=== PATIENT | female | born 2000 | race Caucasian/White ===

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

== ENCOUNTER → 2022-04-17 | Outpatient (CLI) | payer OTHER, SELFPAY ==
[2022-04-17 15:46] LABS: Chlamydia Trachomatis by PCR Negative (Negative); Neisserai gonorrhoeae by PCR Negative (Negative); Probe Check PASS; Sample Adequacy Control PASS; Specimen Processing Control PASS
== END | disposition home or self-care (01) ==
LOC: LABSPEC 13:57
PROVIDERS: PCP Nurse Practitioner Pediatrics; Visit Provider Nurse Practitioner Women's Health
DX: N92.1 Excessive and frequent menstruation with irregular cycle (principal)
CPT/HCPCS: 87491; 87591

== ENCOUNTER → 2022-06-06 | Outpatient (CLI) | payer OTHER, SELFPAY ==
[2022-06-06 08:51] LABS: AST(SGOT) 20 U/L (15-37); Alanine Aminotransfer ALT/SGPT 37 U/L (13-56); Albumin, Serum 3.7 g/dL (3.2-5.0); Alkaline Phosphatase 61 U/L (45-117); Cholesterol 170 mg/dL (200); Globulin 3.7 g/dL (2.2-4.2); High Density Lipoprotein 46 mg/dL; Protein, Total 7.4 g/dL (6.4-8.2); Triglycerides 112 mg/dL; Very Low Density Lipoprotein 22 mg/dL (5-40)
== END | disposition home or self-care (01) ==
LOC: LAB 07:54
PROVIDERS: Referring Provider Internal Medicine Cardiovascular Disease; Visit Provider Internal Medicine Cardiovascular Disease
DX: E78.41 Elevated Lipoprotein(a) (principal)
CPT/HCPCS: 36415; 80061; 80076

== ENCOUNTER → 2022-06-12 | Outpatient (CLI) | payer OTHER, SELFPAY ==
[2022-06-13 01:01] LABS: Mucous, Urine 0 SEEN /hpf (<or=2+)
[2022-06-13 01:05] LABS: Color, Urine Amber (Yellow); Glucose, Dipstick Normal (Normal); Ketone-Dipstick Negative (Negative); Leukocyte Esterase-Dipstick 100 /ul (Negative); Nitrite-Dipstick Positive (Negative); Occult Blood-Urine 150 /ul (Negative); Protein-Dipstick 30 mg/dl (Negative); Urine Clarity Cloudy (Clear); Urine Urobilinogen 4 mg/dl (Normal)
[2022-06-13 01:25] LABS: Urine Bilirubin Dipstick 3 mg/dL (Negative)
[2022-06-13 01:27] LABS: Amorphous Sediment 1+; Bacteria 4+ /hpf (None Seen); Red Blood Cells-Urine 10-25 SEEN /hpf (0-5); Renal Epithelial Cells 5-10 SEEN /hpf (0-5); Squamous Epithelial Cells - UA 0-5 SEEN /hpf (5-10); Transitional Epithelial - Ur 0-5 SEEN /hpf (0-5)
[2022-06-13 01:28] LABS: White Blood Cells 25-50 SEEN /hpf (0-5)
== END | disposition home or self-care (01) ==
PROVIDERS: Referring Provider Physician Assistant; Visit Provider Physician Assistant
DX: R30.9 Painful micturition, unspecified (principal)
CPT/HCPCS: 81001; 87086; 87088; 87186

== ENCOUNTER → 2022-07-23 | Outpatient (CLI) | payer OTHER, SELFPAY ==
--- NOTE | 2022-07-23 12:42 | ECHOD_ITS ---
Reason For Study: DYSPNEA Left Ventricle Normal LV size. Left ventricular systolic function is normal. The estimated ejection fraction is 60 %. No regional wall motion abnormalities noted. Right Ventricle Normal RV size. Normal systolic function. Atria Normal left atrium. Normal right atrium. Mitral Valve Normal mitral valve. Tricuspid Valve Normal tricuspid valve. Mild tricuspid valve insufficiency. Pulmonary artery systolic pressure is 23 mmHg. Aortic Valve Normal aortic valve. Trisinus/trileaflet aortic valve. Pulmonic Valve Normal pulmonic valve. Great Vessels Normal aortic root. The pulmonary artery is normal size. Normal inferior vena cava. Pericardium/Pleural No pericardial effusion. MMode/2D Measurements & Calculations LVIDd: 4.5 cm IVSd: 0.78 cm Ao root diam: 2.4 cm LVIDs: 3.3 cm LVPWd: 0.70 cm RVDd: 2.5 cm FS: 28.5 % LAV(MOD-bp): 39.7 ml LVAd ap4: 29.0 cm2 SV(MOD-sp4): 51.0 ml LAV(MOD-bp) Indexed: 25.7 ml/m2 LVLd ap4: 8.1 cm LAV(MOD-sp2): 42.5 ml EDV(MOD-sp4): 85.6 ml LAV(MOD-sp4): 26.8 ml EDV(sp4-el): 88.2 ml LVAs ap4: 16.6 cm2 LVLs ap4: 6.4 cm ESV(MOD-sp4): 34.7 ml ESV(sp4-el): 36.5 ml EF(MOD-sp4): 59.5 % EF(sp4-el): 58.6 % SV(sp4-el): 51.7 ml LA dimension(2D): 2.8 cm LA A4 area: 15.2 cm2 RA A4 area: 11.4 cm2 Time Measurements MV dec time: 0.19 sec Doppler Measurements & Calculations MV E max alton: 89.3 cm/sec Lat Peak E' Alton: 26.7 cm/sec Med Peak E' Alton: 16.0 cm/sec MV A max alton: 47.3 cm/sec E/E' lat: 3.3 E/E' med: 5.6 MV E/A: 1.9 MV V2 max: 92.7 cm/sec Ao V2 max: 139.2 cm/sec MV max P.4 mmHg MV dec slope: 492.4 cm/sec2 Ao max P.8 mmHg MV V2 mean: 60.0 cm/sec Ao V2 mean: 106.4 cm/sec MV mean P.6 mmHg Ao mean P.0 mmHg MV V2 VTI: 29.6 cm Ao V2 VTI: 31.7 cm PA V2 max: 99.7 cm/sec TR max alton: 225.4 cm/sec PA V2 mean: 72.3 cm/sec TR max P.3 mmHg ECHO/Echo Complete Interpretation Summary Normal LV size. Left ventricular systolic function is normal. The estimated ejection fraction is 60 %. Pulmonary artery systolic pressure is 23 mmHg. Structurally normal valves. Ordering Physician: Murali Bartlett Referring Physician: NO PCP GIVEN Performed By: Leticia Engel RCS
== END | disposition home or self-care (01) ==
LOC: CVS 12:41
PROVIDERS: Visit Provider Internal Medicine Cardiovascular Disease
DX: R07.9 Chest pain, unspecified (principal)
CPT/HCPCS: 93306

== ENCOUNTER → 2024-04-16 | Outpatient (CLI) | payer OTHER, SELFPAY ==
[2024-04-16 11:30] LABS: AST(SGOT) 12 U/L (15-37); Alanine Aminotransfer ALT/SGPT 17 U/L (13-56); Albumin, Serum 4.3 g/dL (3.2-5.0); Alkaline Phosphatase 77 U/L (45-117); Bilirubin, Direct 0.16 mg/dL (0.00-0.30); Cholesterol 157 mg/dL (200); Globulin 3.2 g/dL (2.2-4.2); High Density Lipoprotein 68 mg/dL; Protein, Total 7.5 g/dL (6.4-8.2); Triglycerides 34 mg/dL; Very Low Density Lipoprotein 7 mg/dL (5-40)
== END | disposition home or self-care (01) ==
LOC: LAB 09:46
PROVIDERS: Referring Provider Physician Assistant Medical; Visit Provider Physician Assistant Medical
DX: E78.41 Elevated Lipoprotein(a) (principal)
CPT/HCPCS: 36415; 80061; 80076

== ENCOUNTER → 2024-06-24 | Outpatient (CLI) | payer OTHER, SELFPAY ==
[2024-06-24 10:03] LABS: Hematocrit 43.6 % (37-47); Hemoglobin 14.3 g/dL (12.0-15.0); Mean Corp Hgb Conc 32.8 g/dL (32-36); Mean Corpuscular Hgb 29.1 pg (27.0-32.0); Mean Corpuscular Volume 88.8 fL (81-99); Mean Platelet Vol. 9.3 fl (6.2-12.0); Platelet Count 293 K/mm3 (150-450); RBC Distribution Width CV 11.8 % (11.6-14.6); Red Blood Count 4.91 M/mm3 (4.2-5.4); White Blood Count 5.4 K/mm3 (4.4-11.0)
[2024-06-24 10:39] LABS: Vitamin B12 1959 pg/mL (211-911); Vitamin D,25 Hydroxy 18.6 ng/mL
[2024-06-24 10:41] LABS: Iron 123 ug/dL (50-170); Iron Binding Capacity,Total 442 ug/dL (250-450); PERCENT IRON SATURATION 27.8 % (15.0-55.0)
== END | disposition home or self-care (01) ==
PROVIDERS: Referring Provider Physician Assistant Surgical; Visit Provider Physician Assistant Surgical
DX: R53.83 Other fatigue (principal)
CPT/HCPCS: 36415; 82306; 82607; 83540; 83550; 85027

== ENCOUNTER → 2025-01-31 | Outpatient (CLI) | payer OTHER, SELFPAY ==
--- NOTE | 2025-01-31 09:33 | MRI_ITS ---
PROCEDURE: BRAIN W/WO CONTRAST 01/31/2025 REASON FOR EXAM: ALTERED AWARENESS, TANSIENT TECHNIQUE: BRAIN W/WO CONTRAST Multiplanar and multisequence images were obtained. CONTRAST: Clariscan VOLUME: 12 mL intravenous. COMPARISON: None provided. FINDINGS: Brain: Normal signal intensities. Diffusion: No area of restricted diffusion is seen. Ventricles: Normal. Major Intracranial Vessels: Unremarkable Sinuses: Clear. Mastoids: Clear. Other: Postcontrast images demonstrate no area of abnormal enhancement. MRI/Brain W/WO Contrast IMPRESSION: No significant abnormality is identified. Reading Location: [place] [id number]
--- OUTSIDE RECORDS SUMMARY | 2025-01-31 21:20 | XMS RPT_ITS | CCD ---
Author Organization [facility] Care Team Providers Care Drama Therapist Name Role Phone Terrence DAMON Rosa N Unavailable Cogar NELSON Rosa N Unavailable Mclennan CARGO SUPERVISOR, CARGO SUPERVISOR-C Alia Primary Care Provider Mclennan CARGO SUPERVISOR, CARGO SUPERVISOR-C Alia Referring Provider [phone] Yuriy CARGO SUPERVISOR, CARGO SUPERVISOR-C Laura Attending Provider Mclennan CARGO SUPERVISOR, CARGO SUPERVISOR-C Alia Primary Care Provider Mclennan CARGO SUPERVISOR, CARGO SUPERVISOR-C Alia Referring Provider Yuriy CARGO SUPERVISOR, CARGO SUPERVISOR-C Laura Attending Provider Dr. Murali Bartlett Attending Provider Care Physician, No Primary Primary Care Provider Unavailable Care Physician, No Primary Referring Provider Un available CHARBEL Groves Attending Provider KITTY SIDDIQUI DO Primary Care Physician KITTY SIDDIQUI DO Primary Care Unavailable KITTY SIDDIQUI DO Attending Unavailable VIIRDIANA FAUSTIN MD Attending Unavailable KITTY SIDDIQUI DO Primary Care Unavailable VIRIDIANA FAUSTIN MD Attending Unavailable KITTY SIDDIQUI DO Primary Care Unavailable Maude Posey Attending Unavail able Care Physician, No Primary Primary Care Unava ilable Care Physician, No Primary Referring Unava ilable Kitty Siddiqui Primary Care Unavailable Viridiana Faustin Attending Unavailable Viridiana Faustin Referring Unavailable Panda Salomon Attending Unavailable Care Physician, No Primary Primary Care Unava ilable Care Physician, No Primary Referring Unava ilable Care Physician, No Primary Primary Care Unava ilable Eric Groves Attending Unavailable Care Physician, No Primary Referring Unava Maude Cummings Attending Unavail Maude Gastelum Referring Unavail able Care Physician, No Primary Primary Care Unava Panda Zamorano Attending Unavailable Panda Salomon Referring Unavailable Care Physician, No Primary Primary Care Unava ilwilian Medications Current Medications Medication Drug Class(es) Dates Sig (Normalized) Sig (Original) ashwagandha 450 mg oral capsule (2 sources) Start: 08-02-2024 take 1 capsule by mouth once ashwagandha 450 mg oral capsule 450 mg Dose = 1 cap(s), Oral, Once, 0 Refill(s) Start Date: 08/02/24 Status: Ordered Repeat number: 1 biotin 0.3 mg oral tablet (2 sources) Start: 08-02-2024 biotin 300 mcg oral tablet Dose : 600 mcg = 2 tab(s), Oral, qDay, # 60 tab(s), 0 Refill(s) Start Date: 08/02/24 Status: Ordered Quantity: 60.0 Unit: tab(s) Repeat number: 1 Levonorgestrel-Eth inyl Estrad (20 sources) Progestin, Estrogen, Progestin-containin g Intrauterine Device Start: 04-17-2022 Levonorgestrel-Et hinyl Estrad (Altavera (28)) 0.15-0.03 mg tablet Active 1 TABLET PO DAILY April 16, 2022 11:00pm Start: 11-07-2021 End: 04-17-2022 take 1 tablet by mouth once daily Levonorgestrel-Ethinyl Estrad (Aviane) 0.1-20 mg-mcg tablet Discontinued 1 TABLET PO daily November 07, 2021 1:59pm April 17, 2022 12:10pm Start: 10-24-2021 End: 11-07-2021 take 1 tablet by mouth once daily Levonorgestrel-Ethinyl Estrad (Aviane) 0.1-20 mg-mcg tablet Discontinued 1 TABLET PO daily October 24, 2021 1:18pm November 07, 2021 1:59pm Start: 10-24-2021 End: 11-07-2021 take 1 tablet by mouth once daily Levonorgestrel-Ethinyl Estrad (Aviane) 0.1-20 mg-mcg tablet Discontinued 1 TABLET PO daily October 24, 2021 2:18pm November 07, 2021 2:59pm Start: 08-28-2020 End: 10-24-2021 take 1 tablet by mouth once daily Levonorgestrel-Ethinyl Estrad (Aviane) 0.1-20 mg-mcg tablet Discontinued 1 TABLET PO daily August 28, 2020 3:36pm October 24, 2021 1:18pm Start: 08-28-2020 End: 10-24-2021 take 1 tablet by mouth once daily Levonorgestrel-Ethinyl Estrad (Aviane) 0.1-20 mg-mcg tablet Discontinued 1 TABLET PO daily August 28, 2020 4:36pm October 24, 2021 2:18pm Start: 05-29-2020 End: 08-28-2020 take 1 tablet by mouth once daily Levonorgestrel-Ethinyl Estrad (Aviane) 0.1-20 mg-mcg tablet Discontinued 1 TABLET PO daily May 29, 2020 3:47pm August 28, 2020 4:37pm Start: 05-29-2020 End: 08-28-2020 take 1 tablet by mouth once daily Levonorgestrel-Ethinyl Estrad (Aviane) 0.1-20 mg-mcg tablet Discontinued 1 TABLET PO daily May 28, 2020 11:00pm August 28, 2020 3:37pm Vitamin B12 50 mcg oral tabl et (2 sources) Start: 08-02-2024 Vitamin B12 50 mcg oral tablet Dose : 100 mcg = 2 tab(s), Oral, Daily, 0 Refill(s) Start Date: 08/02/24 Status: Ordered Repeat number: 1 Vitamin C 250 mg oral tablet (2 sources) Start: 08-02-2024 Vitamin C 250 mg oral tablet Dose : 250 mg = 1 tab(s), Oral, qDay, Take with food, # 30 tab(s), 0 Refill(s) Start Date: 08/02/24 Status: Ordered Quantity: 30.0 Unit: tab(s) Repeat number: 1 Vitamin D3 (2 sources) Start: 08-02-2024 Vitamin D3 Dos e : 10 mcg = 1 tab(s), Oral, Daily, 0 Refill(s) Start Date: 08/02/24 Status: Ordered Repeat number: 1 Completed/Discontinued Medications Medication Drug Class(es) Dates Sig (Normalized) Sig (Original) amoxicillin 875 mg / clavulanate 125 mg oral tablet (5 sources) Penicillin-class Antibacterial Start: 08-27-2019 End: 09-06-2019 take 1 tablet by mouth every twelve hours Amoxicillin-Pot Clavulanate (Augmentin) 875-125 mg tablet Discontinued 1 TABLET PO Q12H 20 August 27, 2019 12:00am September 06, 2019 12:08am nitrofurantoin, macrocrystals 25 mg / nitrofurantoin, monohydrate 75 mg oral capsule (8 sources) Nitrofuran Antibacterial Start: 06-12-2022 End: 06-17-2022 take 1 capsule by mouth every twelve hours at mealtime Nitrofurantoin Monohyd/M-Cryst (Macrobid) 100 mg capsule Discontinued 100 MG PO Q12H 10 June 12, 2022 12:00am June 17, 2022 12:04am must administer with a meal/food Start: 06-13-2020 End: 06-20-2020 take 1 capsule by mouth every twelve hours at mealtime Nitrofurantoin Monohyd/M-Cryst Discontinued 1 CAP PO Q12H 14 June 13, 2020 12:00am June 20, 2020 12:03am administer with a meal/food; swallow whole; do not open, crush, dissolve , or chew oseltamivir 75 mg oral capsule (5 sources) Neuraminidase Inhibitor Start: 09-03-2017 End: 09-08-2017 take 1 capsule by mouth twice daily Oseltamivir (Tamiflu) 75 mg capsule Discontinued 75 MG PO TWICE A DAY 10 September 03, 2017 12:00am September 08, 2017 12:06am phenazopyridine hydrochloride 100 mg oral tablet (5 sources) Start: 06-13-2020 End: 08-28-2020 take 1 tablet by mouth three times daily at mealtime Phenazopyridine (Pyridium) 100 mg tablet Discontinued 100 MG PO THREE TIMES A DAY 7 June 13, 2020 12:00am August 28, 2020 3:18pm administer with a full glass of water after each meal sulfamethoxazole 800 mg / trimethoprim 160 mg oral tablet (5 sources) Dihydrofolate Reductase Inhibitor Antibacterial, Sulfonamide Antimicrobial Start: 12-10-2017 End: 08-27-2019 take 1 tablet by mouth twice daily Sulfamethoxazole-Tr imethoprim Discontinued 1 TABLET PO TWICE A DAY December 09, 2017 11:00pm August 27, 2019 1:51pm Problems Active Problems Problem Classification Problem Date Documented Date Episodic/Chronic Cardiac dysrhythmias (6 sources) Tachycardia; Translations: [Tachycardia, unspecified] Episodic Conditions associated with dizziness or vertigo (1 source) Lightheadedness 10-28-2024 Episodic Disorders of lipid metabolism (7 sources) Hyperlipoproteinemia; 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 Immunizations and screening for infectious disease (3 sources) Contact with and (suspected) exposure to infections with a predominantly sexual mode of transmission; Translations: [Contact with or exposure to venereal diseases] Episodic Menstrual disorders (10 sources) Menometrorrhagia; Translations: [Excessive and frequent menstruation with irregular cycle] Chronic Nonspecific chest pain (6 sources) Chest pain; Translations: [Chest pain, unspecified] Episodic Other nervous system disorders (1 source) Impaired cognition 10-28-2024 Episodic Residual codes; unclassified (1 source) Transient alteration of awareness; Translations: [Transient alteration of awareness] Onset: 01-31-2025 Episodic Syncope (1 source) Near syncope 10-28-2024 Episodic Urinary tract infections (6 sources) Urinary tract infectious disease; Translations: [Urinary tract infection, site not specified] Episodic Past or Other Problems Problem Classification Problem Date Documented Da te Episodic/Chronic Malaise and fatigue (1 source) Other fatigue; Translations: [Other fatigue] Onset: 07-23-2024 Episodic Other ear and sense organ disorders (2 sources) Otalgia, unspecified ear; Translations: [Otalgia, unspecified ear] Onset: 04-08-2017 04-08-2017 Episodic Other upper respiratory infections (2 sources) Upper respiratory infection; Translations: [Acute upper respiratory infection, unspecified] Onset: 04-08-2017 04-08-2017 Episodic Results Test Name Value Interpretation Reference Range Facility Brain W/WO Contraston 2024 Brain W/WO Contrast [facility] [address] [place] [id number] Brain W/WO Contrast MR#: [id number] Acct: [id number] Name: PRISCILLA WALTERS Rep #: [id number] : 2000 F 24 From: [facility] PCP: Dr. Kitty Siddiqui, Status: REG CLI Study: Brain W/WO Contrast Date of Exam: 01/31/25 Exam# [id number] Ordering Dr: Viridiana Faustin MD PROCEDURE: BRAIN W/WO CONTRAST 01/31/2025 REASON FOR EXAM: ALTERED AWARENESS, TANSIENT TECHNIQUE: BRAIN W/WO CONTRAST Multiplanar and multisequence images were obtained. CONTRAST: Clariscan VOLUME: 12 mL intravenous. COMPARISON: None provided. FINDINGS: Brain: Normal signal intensities. Diffusion: No area of restricted diffusion is seen. Ventricles: Normal. Major Intracranial Vessels: Unremarkable Sinuses: Clear. Mastoids: Clear. Other: Postcontrast images demonstrate no area of abnormal enhancement. MRI/Brain W/WO Contrast IMPRESSION: No significant abnormality is identified. Reading Location: [place] [address] CC: Dr. Viridiana Faustin MD; Dr. Kitty Siddiqui DO Parts Counterperson: Signed Normal [facility] Methylmalonic Acid 161 nmol/L Normal 0-378 [facility] Comment on above: Result Comment: This test was developed and its performance characteristics determined by [facility]. It has not been cleared or approved by the Food and Drug Administration. Performed At: [address] [id number] Alirio Cain MD Ph:[phone] Performed By: #### G FR, CMP, ANEU, A1C, ADIFF, LIPID, TSH, CBC #### [facility] [address] [place], [place] [address] ERon 01-12-2025 Lyme Total Antibody JAD Negative Normal Negative [facility] Comment on above: Result Comment: Lyme antibodies not detected. Reflex testing is not indicated. No laboratory evidence of infection with B. burgdorferi (Lyme disease). Negative results may occur in patients recently infected (less than or equal to 14 days) with B. burgdorferi. If recent infection is suspected, repeat testing on a new sample collected in 7 to 14 days is recommended. Performed At: [facility] [id number] Krysten Arnold PhD Ph:[phone] Performed By: #### G FR, CMP, ANEU, A1C, ADIFF, LIPID, TSH, CBC #### [address] [address] .GFRon 01-11-2025 Estimated Glomerular Filtration Rate 74 ml/min/1.73sqm Normal [facility] Comment on above: Result Comment: Stages of Chronic Kidney Disease (CKD) Stage Description eGFR(ml/min/1.73 sq.m.) CKD 1 Normal kidney function or >=90 normal kindney function with possible kidney damage (ex. Proteinuria) CKD 2 Kidney damage with mild loss 60-89 of kidney function CKD 3a Mild to moderate loss of kidney 45-59 function CKD 3b Moderate to severe loss of 30-44 of kindey function CKD 4 Severe loss of kidney function 15-29 CKD 5 Kidney failure <15 Note: (go live 2024) the eGFR calculation was updated to the 2020 CKD-EPI creatinine equation without a race factor to calculate the eGFR results. Performed By: #### G FR, CMP, ANEU, A1C, ADIFF, LIPID, TSH, CBC #### [address] [address] B12on 01-11-2025 Vitamin B12 Lvl >2000 High 211-911 [facility] Comment on above: Performed By: #### G FR, CMP, ANEU, A1C, ADIFF, LIPID, TSH, CBC #### [address] [address] BMPon 01-11-2025 BUN/Creatinine Ratio 16 ratio Normal 7-27 [facility] Comment on above: Performed By: #### F T4, TSH, 802436, GFR, 745846, BMP #### [address] [address] #### B12 #### [facility] [address] [place] [address] Calcium [Mass/Vol] 9.4 mg/dL Normal 8.4-10.2 [facility] Comment on above: Performed By: #### F T4, TSH, 379367, GFR, 820711, BMP #### [place] [address] #### B12 #### [address] [address] Chloride [Moles/Vol] 104 mmol/L Normal 98-107 [facility] Comment on above: Performed By: #### F T4, TSH, 344543, GFR, 895620, BMP #### [place] [address] #### B12 #### [place] [address] CO2 [Moles/Vol] 29 mmol/L Normal 22-29 [facility] Comment on above: Performed By: #### F T4, TSH, 157124, GFR, [id number], BMP #### [place] [address] #### B12 #### [place] [address] Creatinine [Mass/Vol] 1.09 mg/dL High 0.51-0.95 [facility] Comment on above: Performed By: #### F T4, TSH, 739352, GFR, [id number], BMP #### [place] [address] #### B12 #### [place] [address] Electrolyte Balance 8.0 mEq/L Normal 4.0-15.0 [facility] Comment on above: Performed By: #### F T4, TSH, 054407, GFR, 016339, BMP #### [place] [address] #### B12 #### [place] [address] Glucose [Mass/Vol] 96 mg/dL Normal 70-105 [facility] Comment on above: Performed By: #### F T4, TSH, 209054, GFR, 599231, BMP #### [place] [address] #### B12 #### [address] [address] Potassium [Moles/Vol] 4.5 mmol/L Normal 3.5-5.1 [facility] Comment on above: Performed By: #### F T4, TSH, 174334, GFR, 649517, BMP #### [place] [address] #### B12 #### [address] [address] Sodium [Moles/Vol] 141 mmol/L Normal 136-145 [facility] Comment on above: Performed By: #### F T4, TSH, 828620, GFR, 915557, BMP #### [place] [address] #### B12 #### [address] [address] Urea nitrogen [Mass/Vol] 17 mg/dL Normal 7-18 [facility] Comment on above: Performed By: #### F T4, TSH, 691274, GFR, 929938, BMP #### [place] [address] #### B12 #### [address] [address] FT4on 01-11-2025 Free T4 [Mass/Vol] 0.67 ng/dL Low 0.76-1.46 [facility] Comment on above: Performed By: #### G FR, CMP, ANEU, A1C, ADIFF, LIPID, TSH, CBC #### [place] [address] LABORATORYOrdered By: SYSTEM SYSTEM on 01-11-2025 Calcium [Mass/Vol] 9.4 mg/dL Normal 8.4 - 10. 2 mg/dL AO ADM SS Chloride [Moles/Vol] 104 mmol/L Normal 98 - 10 7 mmol/L AO ADM SS CO2 [Moles/Vol] 29 mmol/L Normal 22 - 29 mmol/L AO ADM SS Cobalamin (Vitamin B12) [Mass/Vol] pg/mL High 211 - 911 pg/mL AH ADM SS Creatinine [Mass/Vol] 1.09 mg/dL High 0.51 - 0.95 mg/dL AO ADM SS Electrolyte Balance 8.0 mEq/L Normal 4.0 - 15 .0 mEq/L AO ADM SS Estimated Glomerular Filtration Rate 74 ml/min/1.73sqm Invalid Interpretation Code AO Chemistry S Comment on above: Interpretive Data: Stages of Chronic Kidney Disease (CKD) Stage Description eGFR(ml/min/1.73 sq.m.) CKD 1 Normal kidney function or >=90 normal kindney function with possible kidney damage (ex. Proteinuria) CKD 2 Kidney damage with mild loss 60-89 of kidney function CKD 3a Mild to moderate loss of kidney 45-59 function CKD 3b Moderate to severe loss of 30-44 of kindey function CKD 4 Severe loss of kidney function 15-29 CKD 5 Kidney failure <15 Note: (go live 2024) the eGFR calculation was updated to the 2020 CKD-EPI creatinine equation without a race factor to calculate the eGFR results. Free T4 [Mass/Vol] 0.67 ng/dL Low 0.76 - 1. 46 ng/dL AO ADM SS Glucose [Mass/Vol] 96 mg/dL Normal 70 - 105 mg/dL AO ADM SS Potassium [Moles/Vol] 4.5 mmol/L Normal 3.5 - 5.1 mmol/L AO ADM SS Sodium [Moles/Vol] 141 mmol/L Normal 136 - 145 mmol/L AO ADM SS TSH Qn 2.13 m[IU]/L Normal 0.36 - 3.74 mcIU/mL AO ADM SS Urea nitrogen [Mass/Vol] 17 mg/dL Normal 7 - 18 mg/dL AO ADM SS Urea nitrogen/Creatinine [Mass ratio] 16 ratio Normal 7 - 27 ratio AO ADM SS TSHon 01-11-2025 TSH Qn 2.13 m[IU]/L Normal 0.36-3.74 [facility] Comment on above: Performed By: #### F T4, TSH, 850065, GFR, 882143, BMP #### [address] [address] #### B12 #### [facility] [address] [place] [address] .Auto Diffon 08-03-2024 Basophil, Absolute 0.1 10 3/mcL Normal 0.0-0.2 [facility] Comment on above: Performed By: #### G FR, CMP, ANEU, A1C, ADIFF, LIPID, TSH, CBC #### [address] [address] Basophils/100 WBC (Bld) 2.0 % Normal 0.0-2.5 [facility] Comment on above: Performed By: #### G FR, CMP, ANEU, A1C, ADIFF, LIPID, TSH, CBC #### [address] [address] Eosinophil, Absolute 0.1 10 3/mcL Normal 0.0-0.7 [facility] Comment on above: Performed By: #### G FR, CMP, ANEU, A1C, ADIFF, LIPID, TSH, CBC #### [address] [address] Eosinophils/100 WBC (Bld) 2.2 % Normal 0.0-7.0 [facility] Comment on above: Performed By: #### G FR, CMP, ANEU, A1C, ADIFF, LIPID, TSH, CBC #### [address] [address] Lymphocyte, Absolute 2.3 10 3/mcL Normal 0.9-4.3 [facility] Comment on above: Performed By: #### G FR, CMP, ANEU, A1C, ADIFF, LIPID, TSH, CBC #### [address] [address] Lymphocytes/100 WBC (Bld) 34.8 % Normal 20.0-40.0 [facility] Comment on above: Performed By: #### G FR, CMP, ANEU, A1C, ADIFF, LIPID, TSH, CBC #### [address] [address] Monocyte, Absolute 0.4 10 3/mcL Normal 0.1-1.4 [facility] Comment on above: Performed By: #### G FR, CMP, ANEU, A1C, ADIFF, LIPID, TSH, CBC #### [address] [address] Monocytes/100 WBC (Bld) 6.2 % Normal 2.0-13.0 [facility] Comment on above: Performed By: #### G FR, CMP, ANEU, A1C, ADIFF, LIPID, TSH, CBC #### [address] [address] Neutrophils/100 WBC (Bld) 54.8 % Normal 50.0-75.0 [facility] Comment on above: Performed By: #### G FR, CMP, ANEU, A1C, ADIFF, LIPID, TSH, CBC #### [address] [address] .GFRon 08-03-2024 GFR 84 ml/min/1.73sqm [facility] Comment on above: Result Comment: GFR Population mean for , Non- Americans Ages 20-29 = 116 mL/min/1.73 sq.m. Ages 30-39 = 107 mL/min/1.73 sq.m. Ages 40-49 = 99 mL/min/1.73 sq.m. Ages 50-59 = 93 mL/min/1.73 sq.m. Ages 60-69 = 85 mL/min/1.73 sq.m. Ages 70+ = 75 mL/min/1.73 sq.m. Chronic Kidney Disease: Less than 60 mL/min/1.73 square meters End Stage Renal Disease: Less than 15 mL/min/1.73 square meters Performed By: #### G FR, CMP, ANEU, A1C, ADIFF, LIPID, TSH, CBC #### [address] [address] GFR Non- 69 ml/min/1.73sqm Normal [facility] Comment on above: Result Comment: GFR Population mean for , Non- Americans Ages 20-29 = 116 mL/min/1.73 sq.m. Ages 30-39 = 107 mL/min/1.73 sq.m. Ages 40-49 = 99 mL/min/1.73 sq.m. Ages 50-59 = 93 mL/min/1.73 sq.m. Ages 60-69 = 85 mL/min/1.73 sq.m. Ages 70+ = 75 mL/min/1.73 sq.m. Chronic Kidney Disease: Less than 60 mL/min/1.73 square meters End Stage Renal Disease: Less than 15 mL/min/1.73 square meters Performed By: #### G FR, CMP, ANEU, A1C, ADIFF, LIPID, TSH, CBC #### [address] [address] .NEUABSon 08-03-2024 Neutrophil, Absolute 3.6 10 3/mcL Normal 2.3-8.1 [facility] Comment on above: Performed By: #### G FR, CMP, ANEU, A1C, ADIFF, LIPID, TSH, CBC #### [place] [address] A1Con 08-03-2024 Glucose [Mass/Vol] 117 mg/dL Normal [facility] Comment on above: Result Comment: Rhonda mated Average Glucose calculated by equation ((28.7xA1C)-46.7) Estimated average glucose (eAG) is a calculated value from Hemoglobin A1C and is customer loyalty representative of the average blood glucose level in the last 2-3 month period. Normal range: less than 114 mg/dL Performed By: #### G FR, CMP, ANEU, A1C, ADIFF, LIPID, TSH, CBC #### [address] [address] HbA1c (Bld) [Mass fraction] 5.7 % Normal 4.3-6.4 [facility] Comment on above: Performed By: #### G FR, CMP, ANEU, A1C, ADIFF, LIPID, TSH, CBC #### [address] [address] CBCon 08-03-2024 Erythrocyte distribution width (RBC) [Ratio] 12.8 % Normal 11.5-15.5 [facility] Comment on above: Performed By: #### G FR, CMP, ANEU, A1C, ADIFF, LIPID, TSH, CBC #### [address] [address] Hematocrit (Bld) [Volume fraction] 40.3 % Normal 34.0-46.0 [facility] Comment on above: Performed By: #### G FR, CMP, ANEU, A1C, ADIFF, LIPID, TSH, CBC #### [address] [address] Hgb 13.6 G/dL Normal 12.0-16.0 [facility] Comment on above: Performed By: #### G FR, CMP, ANEU, A1C, ADIFF, LIPID, TSH, CBC #### [address] [address] MCH (RBC) [Entitic mass] 30.1 pg Normal 27.0-33.0 [facility] Comment on above: Performed By: #### G FR, CMP, ANEU, A1C, ADIFF, LIPID, TSH, CBC #### [address] [address] MCHC 33.8 G/dL Normal 32.0-36.0 [facility] Comment on above: Performed By: #### G FR, CMP, ANEU, A1C, ADIFF, LIPID, TSH, CBC #### [address] [address] MCV (RBC) [Entitic vol] 89.3 fL Normal 80.0-99.0 [facility] Comment on above: Performed By: #### G FR, CMP, ANEU, A1C, ADIFF, LIPID, TSH, CBC #### [address] [address] Platelet 235 10 3/mcL Normal 150-450 [facility] Comment on above: Performed By: #### G FR, CMP, ANEU, A1C, ADIFF, LIPID, TSH, CBC #### [address] [address] Platelet mean volume (Bld) [Entitic vol] 8.1 fL Normal 6.6-10.5 [facility] Comment on above: Performed By: #### G FR, CMP, ANEU, A1C, ADIFF, LIPID, TSH, CBC #### [address] [address] RBC 4.51 10 6/mcL Normal 4.10-5.30 [facility] Comment on above: Performed By: #### G FR, CMP, ANEU, A1C, ADIFF, LIPID, TSH, CBC #### [address] [address] WBC 6.6 10 3/mcL Normal 4.5-10.8 [facility] Comment on above: Performed By: #### G FR, CMP, ANEU, A1C, ADIFF, LIPID, TSH, CBC #### [address] [address] CMPon 08-03-2024 Albumin Level 3.8 G/dL Normal 3.5-5.0 [facility] Comment on above: Performed By: #### G FR, CMP, ANEU, A1C, ADIFF, LIPID, TSH, CBC #### [address] [address] Albumin/Globulin [Mass ratio] 1.2 {ratio} Normal 1.1-2.5 [facility] Comment on above: Performed By: #### G FR, CMP, ANEU, A1C, ADIFF, LIPID, TSH, CBC #### [address] [address] ALP [Catalytic activity/Vol] 79 U/L Normal 40-135 [facility] Comment on above: Performed By: #### G FR, CMP, ANEU, A1C, ADIFF, LIPID, TSH, CBC #### [address] [address] ALT [Catalytic activity/Vol] 21 U/L Normal 14-59 [facility] Comment on above: Performed By: #### G FR, CMP, ANEU, A1C, ADIFF, LIPID, TSH, CBC #### [address] [address] AST [Catalytic activity/Vol] 15 U/L Normal 10-40 [facility] Comment on above: Performed By: #### G FR, CMP, ANEU, A1C, ADIFF, LIPID, TSH, CBC #### [address] [address] Bili Total 0.4 mg/dL Normal 0.2-1.0 [facility] Comment on above: Result Comment: Use of this assay is not recommended for patients undergoing treatment with eltrombopag due to the potential for falsely elevated results. Performed By: #### G FR, CMP, ANEU, A1C, ADIFF, LIPID, TSH, CBC #### [address] [address] BUN/Creatinine Ratio 16 ratio Normal 7-27 [facility] Comment on above: Performed By: #### G FR, CMP, ANEU, A1C, ADIFF, LIPID, TSH, CBC #### [address] [address] Calcium [Mass/Vol] 9.4 mg/dL Normal 8.4-10.2 [facility] Comment on above: Performed By: #### G FR, CMP, ANEU, A1C, ADIFF, LIPID, TSH, CBC #### [address] [address] Chloride [Moles/Vol] 105 mmol/L Normal 98-107 [facility] Comment on above: Performed By: #### G FR, CMP, ANEU, A1C, ADIFF, LIPID, TSH, CBC #### [address] [address] CO2 [Moles/Vol] 30 mmol/L High 22-29 [facility] Comment on above: Performed By: #### G FR, CMP, ANEU, A1C, ADIFF, LIPID, TSH, CBC #### [address] [address] Creatinine [Mass/Vol] 1.01 mg/dL Normal 0.55-1.02 [facility] Comment on above: Result Comment: Test ing performed on Siemens Dimension EXL analyzer using a modified kinetic Suyapa technique. Performed By: #### G FR, CMP, ANEU, A1C, ADIFF, LIPID, TSH, CBC #### [address] [address] Electrolyte Balance 5.0 mEq/L Normal 4.0-15.0 [facility] Comment on above: Performed By: #### G FR, CMP, ANEU, A1C, ADIFF, LIPID, TSH, CBC #### [address] [address] Globulin 3.1 G/dL Normal [facility] Comment on above: Performed By: #### G FR, CMP, ANEU, A1C, ADIFF, LIPID, TSH, CBC #### [address] [address] Glucose [Mass/Vol] 86 mg/dL Normal 70-105 [facility] Comment on above: Performed By: #### G FR, CMP, ANEU, A1C, ADIFF, LIPID, TSH, CBC #### [address] [address] Potassium [Moles/Vol] 5.3 mmol/L High 3.5-5.1 [facility] Comment on above: Performed By: #### G FR, CMP, ANEU, A1C, ADIFF, LIPID, TSH, CBC #### [address] [address] Sodium [Moles/Vol] 140 mmol/L Normal 136-145 [facility] Comment on above: Performed By: #### G FR, CMP, ANEU, A1C, ADIFF, LIPID, TSH, CBC #### [address] [address] Total Protein 6.9 G/dL Normal 6.4-8.2 [facility] Comment on above: Performed By: #### G FR, CMP, ANEU, A1C, ADIFF, LIPID, TSH, CBC #### [address] [address] Urea nitrogen [Mass/Vol] 16 mg/dL Normal 7-18 [facility] Comment on above: Performed By: #### G FR, CMP, ANEU, A1C, ADIFF, LIPID, TSH, CBC #### [address] [place], [place] [address] LABORATORYOrdered By: SYSTEM SYSTEM on 08-03-2024 Albumin BCP dye [Mass/Vol] 3.8 G/dL Normal 3.5 - 5.0 G/dL AO ADM SS Albumin/Globulin [Mass ratio] 1.2 {ratio} Normal 1.1 - 2.5 ratio AO ADM SS ALP [Catalytic activity/Vol] 79 U/L Normal 40 - 135 U/L AO ADM SS ALT With P-5'-P [Catalytic activity/Vol] 21 U/L Normal 14 - 59 U/L AO ADM SS AST With P-5'-P [Catalytic activity/Vol] 15 U/L Normal 10 - 40 U/L AO ADM SS Basophils (Bld) [#/Vol] 0.1 103/mcL Normal 0.0 - 0.2 10^3/mcL AO Workflow SS Basophils/100 WBC (Bld) 2.0 % Normal 0.0 - 2.5 % AO Workflow SS Bilirubin [Mass/Vol] 0.4 mg/dL Normal 0.2 - 1 .0 mg/dL AO ADM SS Comment on above: Interpretive Data: U se of this assay is not recommended for patients undergoing treatment with eltrombopag due to the potential for falsely elevated results. Calcium [Mass/Vol] 9.4 mg/dL Normal 8.4 - 10. 2 mg/dL AO ADM SS Chloride [Moles/Vol] 105 mmol/L Normal 98 - 10 7 mmol/L AO ADM SS CO2 [Moles/Vol] 30 mmol/L High 22 - 29 mmol/L AO ADM SS Creatinine [Mass/Vol] 1.01 mg/dL Normal 0.55 - 1.02 mg/dL AO ADM SS Comment on above: Interpretive Data: T esting performed on Siemens Dimension EXL analyzer using a modified kinetic Suyapa technique. Electrolyte Balance 5.0 mEq/L Normal 4.0 - 15 .0 mEq/L AO ADM SS Eosinophil, Absolute 0.1 103/mcL Normal 0.0 - 0 .7 10^3/mcL AO Workflow SS Eosinophils/100 WBC (Bld) 2.2 % Normal 0.0 - 7.0 % AO Workflow SS Erythrocyte distribution width (RBC) [Ratio] 12.8 % Normal 11.5 - 15.5 % AO Workflow SS GFR/1.73 sq M.predicted among blacks MDRD (S/P/Bld) [Vol rate/Area] 84 ml/min/1.73sqm Invalid Interpretation Code AO Chemistry S Comment on above: Interpretive Data: GFR Population mean for , Non- Americans Ages 20-29 = 116 mL/min/1.73 sq.m. Ages 30-39 = 107 mL/min/1.73 sq.m. Ages 40-49 = 99 mL/min/1.73 sq.m. Ages 50-59 = 93 mL/min/1.73 sq.m. Ages 60-69 = 85 mL/min/1.73 sq.m. Ages 70+ = 75 mL/min/1.73 sq.m. Chronic Kidney Disease: Less than 60 mL/min/1.73 square meters End Stage Renal Disease: Less than 15 mL/min/1.73 square meters GFR/1.73 sq M.predicted among non-blacks MDRD (S/P/Bld) [Vol rate/Area] 69 ml/min/1.73sqm Invalid Interpretation Code AO Chemistry S Comment on above: Interpretive Data: GFR Population mean for , Non- Americans Ages 20-29 = 116 mL/min/1.73 sq.m. Ages 30-39 = 107 mL/min/1.73 sq.m. Ages 40-49 = 99 mL/min/1.73 sq.m. Ages 50-59 = 93 mL/min/1.73 sq.m. Ages 60-69 = 85 mL/min/1.73 sq.m. Ages 70+ = 75 mL/min/1.73 sq.m. Chronic Kidney Disease: Less than 60 mL/min/1.73 square meters End Stage Renal Disease: Less than 15 mL/min/1.73 square meters Globulin 3.1 G/dL Invalid Interpretation Code AO ADM SS Glucose [Mass/Vol] 117 mg/dL Invalid Interpretation Code AO Chemistry S Comment on above: Interpretive Data: E stimated average glucose (eAG) is a calculated value from Hemoglobin A1C and is customer loyalty representative of the average blood glucose level in the last 2-3 month period. Normal range: less than 114 mg/dL Glucose [Mass/Vol] 86 mg/dL Normal 70 - 105 mg/dL AO ADM SS HbA1c (Bld) [Mass fraction] 5.7 % Normal 4.3 - 6.4 % AO ADM SS Hematocrit (Bld) [Volume fraction] 40.3 % Normal 34.0 - 46.0 % AO Workflow SS Hemoglobin (Bld) [Mass/Vol] 13.6 G/dL Normal 12.0 - 16.0 G/dL AO Workflow SS Lymphocytes (Bld) [#/Vol] 2.3 103/mcL Normal 0.9 - 4.3 10^3/mcL AO Workflow SS Lymphocytes/100 WBC (Bld) 34.8 % Normal 20.0 - 40.0 % AO Workflow SS MCH (RBC) [Entitic mass] 30.1 pg Normal 27.0 - 33.0 pg AO Workflow SS MCHC 33.8 G/dL Normal 32.0 - 36.0 G/dL AO Workflow SS MCV (RBC) [Entitic vol] 89.3 fL Normal 80.0 - 99.0 fL AO Workflow SS Monocytes (Bld) [#/Vol] 0.4 103/mcL Normal 0.1 - 1.4 10^3/mcL AO Workflow SS Monocytes/100 WBC (Bld) 6.2 % Normal 2.0 - 13.0 % AO Workflow SS Neutrophils (Bld) [#/Vol] 3.6 103/mcL Normal 2.3 - 8.1 10^3/mcL AO Workflow SS Neutrophils/100 WBC (Bld) 54.8 % Normal 50.0 - 75.0 % AO Workflow SS Platelet mean volume (Bld) [Entitic vol] 8.1 fL Normal 6.6 - 10.5 fL AO Workflow SS Platelets (Bld) [#/Vol] 235 103/mcL Normal 150 - 450 10^3/mcL AO Workflow SS Potassium [Moles/Vol] 5.3 mmol/L High 3.5 - 5.1 mmol/L AO ADM SS Protein [Mass/Vol] 6.9 G/dL Normal 6.4 - 8.2 G/dL AO ADM SS RBC (Bld) [#/Vol] 4.51 106/mcL Normal 4.10 - 5.3 0 10^6/mcL AO Workflow SS Sodium [Moles/Vol] 140 mmol/L Normal 136 - 145 mmol/L AO ADM SS TSH Qn 0.73 m[IU]/L Normal 0.36 - 3.74 mcIU/mL AO ADM SS Urea nitrogen [Mass/Vol] 16 mg/dL Normal 7 - 18 mg/dL AO ADM SS Urea nitrogen/Creatinine [Mass ratio] 16 ratio Normal 7 - 27 ratio AO ADM SS WBC (Bld) [#/Vol] 6.6 103/mcL Normal 4.5 - 10.8 10^3/mcL AO Workflow SS LABORATORYOrdered By: Fawad Ma on 08-03-2024 Cholesterol [Mass/Vol] 165 mg/dL Normal 0 - 200 mg/dL AO ADM SS Comment on above: Interpretive Data: C holesterol Reference Interval: Less than 200 Desirable 200-239 Borderline high risk 240 and above High risk Cholesterol in HDL [Mass/Vol] 66 mg/dL High 40 - 60 mg/dL AO ADM SS Cholesterol in LDL [Mass/Vol] 93 mg/dL Normal 0 - 130 mg/dL AO ADM SS Triglyceride [Mass/Vol] 28 mg/dL Normal 0 - 150 mg/dL AO ADM SS Comment on above: Interpretive Data: T riglyceride Reference Interval: Less than 150 Normal 150-199 Borderline high risk 200-499 High risk 500 or higher Very high risk LIPIDon 08-03-2024 Cholesterol [Mass/Vol] 165 mg/dL Normal 0-200 [facility] Comment on above: Result Comment: Chol esterol Reference Interval: Less than 200 Desirable 200-239 Borderline high risk 240 and above High risk Performed By: #### G FR, CMP, ANEU, A1C, ADIFF, LIPID, TSH, CBC #### [address] [address] Cholesterol in HDL [Mass/Vol] 66 mg/dL High 40-60 [facility] Comment on above: Performed By: #### G FR, CMP, ANEU, A1C, ADIFF, LIPID, TSH, CBC #### [address] [place], [place] [address] Cholesterol in LDL [Mass/Vol] 93 mg/dL Normal 0-130 [facility] Comment on above: Performed By: #### G FR, CMP, ANEU, A1C, ADIFF, LIPID, TSH, CBC #### [address] [place], [place] [address] Triglyceride [Mass/Vol] 28 mg/dL Normal 0-150 [facility] Comment on above: Result Comment: Trig lyceride Reference Interval: Less than 150 Normal 150-199 Borderline high risk 200-499 High risk 500 or higher Very high risk Performed By: #### G FR, CMP, ANEU, A1C, ADIFF, LIPID, TSH, CBC #### [facility] [address] [place], [place] [address] TSHon 08-03-2024 TSH Qn 0.73 m[IU]/L Normal 0.36-3.74 [facility] Comment on above: Performed By: #### G FR, CMP, ANEU, A1C, ADIFF, LIPID, TSH, CBC #### [facility] [address] [place], [place] [address] Urgent Care Visit Reporton 1 Urgent Care Visit Report [facility] [address], [address] [place] [address] OFFICE VISIT Date of Service: 08/03/24 MR#: [id number] Acct: [id number] Name: PRISCILLA WALTERS Rep #: [id number] : 2000 Provider: CHARBEL Monreal Age/Sex: 23/F Location: [facility] Status: Signed Intake Vital Signs 06/24/24 08:24 08/03/24 08:43 Height 5 ft 2 in Weight: 126 lb 6 oz BP 120/68 Blood Pressure Location Lt brachial Position Sitting Respiration 15 12 Pulse 94 63 Pulse Source NIBP NIBP Temp 98.0 F 98.3 F Temp Source Oral Oral Pulse Oximetry (%) 98 99 Oxygen Delivery Method room air room air Intake Visit Reasons: SWOLLEN EYE Chief Complaint: right eye swollen Boiler Operator Required: No Accompanied by: Mother Is patient in pain?: No Allergies No Known Allergies Allergy (Verified 08/03/24 08:43) Medications ???Medication ???Instructions ???Recorded ???Confirmed ???Type azithromycin 250 mg tablet See Rx Instructions PO .COMPLEX #6 08/03/24 08/03/24 Rx tabs Is last menstrual period known: No Post menopausal: No Patient : No Have you fallen in the past year?: No Nurse's Note: patient here for a swollen right eye since yesterday. [facility] Medical History (Updated 08/03/24 @ 10:11 by Eric BARGER, PA) Blepharitis of right upper eyelid Acute pharyngitis, unspecified Urinary tract infection with hematuria Elevated lipoprotein A level Family History Uncle CAD (coronary artery disease) Myocardial infarction, Onset Age: 53 Social History current occupational status: student current occupation: [employer] sexually active: No Smoking Status: Never smoker alcohol intake: never substance use type: does not use what type of physical activity do you participate in: aerobics seatbelt use: always HPI HPI Chief Complaint: right eye swollen Details: PRISCILLA WALTERS, is a 23 F who presents to the office today for initial evaluation at the [facility] for approximately 24 hr right upper eyelid edema with trace erythema along the eyelash border of unknown etiology. No vision changes or eye globe pain to either eye. No complaints of fever, chills, sweats, lightheadedness/dizzin ess, nausea/vomiting. Cool compress tried last evening with minimal assist in symptoms progressively worsen once again shortly thereafter. [id number] oral Benadryl taken without assist last evening. No other associated symptoms and no other alleviating/aggravatin g factors. ROS Const Constitutional: No other (As above) Exam Const General: cooperative, healthy appearing and no acute distress Nutritional Appearance: average body habitus Orientation: alert and awake [facility] Head: normal to inspection Ears: hearing grossly normal bilaterally and external ears normal Nose: external nose normal Eyes General: appearance normal, both eyes and all related structures Other: Except right upper eyelid trace erythema/edema along the eyelash border without discharge appreciated upon inspection Neck Neck: normal visual inspection, no lymphadenopathy, no meningeal signs and supple Chest Chest palpation inspection: normal inspection of the chest Resp Effort Inspection: normal respiratory effort and able to speak in complete sentences Cardio Rate: regular rate Pulses: radial pulses present Skin General: no rashes or lesions noted Neuro General: patient alert and patient awake Cognition: normal cognition Speech: speech normal Psych Appearance: grossly normal Mental Status: mental status grossly normal Mood: congruent mood Affect: normal affect Speech and Movement: speech and movement normal Attitude: cooperative Coding Level of Care Code Off vis,est,level 3 Diagnoses Blepharitis of right upper eyelid H01.001 Assessment and Plan Assessment and Plan (1) Blepharitis of right upper eyelid: Status: Acute Plan: Supportive measures, including in part using warm washcloth with baby shampoo applications as instructed today. Azithromycin as prescribed today, though not starting until 08/06/2024 and only if still symptomatic at that time. Follow-up with ophthalmology sooner should symptoms only worsen or any other concerns develop. Patient states acknowledging understanding on the above. This note was generated with Temnos dictation software. It may contain incorrect words, spelling, and punctuation that were not noted in checking the note before signing. Medications: New azithromycin For 250 mg dose pack: take 500 mg today (day 1), then 250 mg for 4 days (days 2-5) PO; START ON 08/06/24 ONLY IF NO IMPROVEMENT 6 tabs 0RF Clinical Quality Measures Falls Risk S (more content not included)... Normal [facility] CBC-Complete Blood Cnt No Di ffon 06-24-2024 Erythrocyte distribution width (RBC) [Ratio] 11.8 % Normal 11.6-14.6 [facility] Comment on above: Performed By: #### L 503.6030, L100.0500, L506.1000, L503.0105 #### [facility] [address] [place], [address] Hematocrit (Bld) [Volume fraction] 43.6 % Normal 37-47 [facility] Comment on above: Performed By: #### L 503.6030, L100.0500, L506.1000, L503.0105 #### [facility] [address] [place], [address] Hemoglobin (Bld) [Mass/Vol] 14.3 g/dL Normal 12.0-15.0 [facility] Comment on above: Performed By: #### L 503.6030, L100.0500, L506.1000, L503.0105 #### [facility] [address] [place], [address] MCH (RBC) [Entitic mass] 29.1 pg Normal 27.0-32.0 [facility] Comment on above: Performed By: #### L 503.6030, L100.0500, L506.1000, L503.0105 #### [facility] [address] [place], [address] MCHC (RBC) [Mass/Vol] 32.8 g/dL Normal 32-36 [facility] Comment on above: Performed By: #### L 503.6030, L100.0500, L506.1000, L503.0105 #### [facility] [address] [place], [address] MCV (RBC) [Entitic vol] 88.8 fL Normal 81-99 [facility] Comment on above: Performed By: #### L 503.6030, L100.0500, L506.1000, L503.0105 #### [facility] [address] [place], [address] Platelet mean volume (Bld) [Entitic vol] 9.3 fL Normal 6.2-12.0 [facility] Comment on above: Performed By: #### L 503.6030, L100.0500, L506.1000, L503.0105 #### [facility] [address] [place], [address] Platelets (Bld) [#/Vol] 293 10*3/uL Normal 150-450 [facility] Comment on above: Performed By: #### L 503.6030, L100.0500, L506.1000, L503.0105 #### [facility] [address] [place], [address] RBC (Bld) [#/Vol] 4.91 10*6/uL Normal 4.2-5.4 [facility] Comment on above: Performed By: #### L 503.6030, L100.0500, L506.1000, L503.0105 #### [facility] [address] [place], [address] RDW SD 38.0 fl Normal 35.1-43.9 [facility] Comment on above: Performed By: #### L 503.6030, L100.0500, L506.1000, L503.0105 #### [facility] [address] [place], [address] WBC (Bld) [#/Vol] 5.4 10*3/uL Normal 4.4-11.0 [facility] Comment on above: Performed By: #### L 503.6030, L100.0500, L506.1000, L503.0105 #### [facility] [address] [place], [address] Iron+Iron Binding Capacityon 06-24-2024 Iron [Mass/Vol] 123 ug/dL Normal 50-170 [facility] Comment on above: Performed By: #### L 503.6030, L100.0500, L506.1000, L503.0105 #### [facility] [address] [place], [address] IRON SATURATION 27.8 Normal 15.0-55.0 [facility] Comment on above: Performed By: #### L 503.6030, L100.0500, L506.1000, L503.0105 #### [facility] [address] [place], [address] TIBC 442 ug/dL Normal 250-450 [facility] Comment on above: Performed By: #### L 503.6030, L100.0500, L506.1000, L503.0105 #### [facility] [address] [place], [address] Urgent Care Visit Reporton 1 08-24-2023 Urgent Care Visit Report [facility] [address], [address] [place] [address] OFFICE VISIT Date of Service: 06/24/24 MR#: [id number] Acct: [id number] Name: PRISCILLA WALTERS Rep #: [id number] : 2000 Provider: CHARBEL Waller Age/Sex: 23/F Location: [facility] Status: Signed Intake Vital Signs 02/19/24 15:11 06/24/24 08:24 Height 5 ft 2 in 5 ft 2 in Weight: 124 lb BMI 22.6 BP 110/70 120/68 Blood Pressure Location Lt brachial Lt brachial Position Sitting Sitting Respiration 18 15 Pulse 77 94 Pulse Source Monitor NIBP Temp 98.0 F Temp Source Oral Pulse Oximetry (%) 100 98 Oxygen Delivery Method room air Intake Visit Reasons: Fatigue, SHAKEY FEELING Chief Complaint: fatigue, dizziness Boiler Operator Required: No Is patient in pain?: No Allergies No Known Allergies Allergy (Verified 02/19/24 15:12) Is last menstrual period known: No Post menopausal: No Patient : No Have you fallen in the past year?: No Nurse's Note: pt presents with fatigue, dizziness, feels shaky when standing up, sat back down and got hot and shaky this morning along with nausea, nausea for 1 week, ran covid/influenza test on patient. [facility] Medical History Acute pharyngitis, unspecified Urinary tract infection with hematuria Elevated lipoprotein A level Family History Uncle CAD (coronary artery disease) Myocardial infarction, Onset Age: 53 Social History current occupational status: student current occupation: [employer] sexually active: No Smoking Status: Never smoker alcohol intake: never substance use type: does not use what type of physical activity do you participate in: aerobics seatbelt use: always HPI HPI Chief Complaint: fatigue, dizziness Details: PRISCILLA WALTERS, is a 23 F who presents to the office today for complaint of fatigue, dizziness along with nausea intermittently for the past 3 weeks. Patient states that the fatigue and dizziness started 1 week ago. She denies vomiting or diarrhea. No hemoptysis, shortness of breath or difficulty breathing. No loss of taste or smell. Patient states that she is not currently sexually active and there is no way that she could be . Patient does state that her last menstrual cycle was approximately 1 month ago with a history of heavy cycles. No other associated symptoms or alleviating/aggravatin g factors. ROS Const Constitutional: Positive for other (As noted in HPI) Exam Const General: cooperative and well developed HENMT Head: normal to inspection and atraumatic Ears: hearing grossly normal bilaterally Nose: nasal discharge clear Face and sinus: normal facial exam Mouth: oral mucosae normal Throat: abnormal tonsil bilaterally hypertrophy 1+ Resp Effort Inspection: normal respiratory effort and no audible wheezes Auscultation: Bilateral: Clear to Auscultation Cardio Palpation: normal PMI Rate: regular rate Rhythm: regular rhythm Neuro General: patient alert and CN's II-XI intact bilaterally Psych Appearance: grossly normal Mental Status: mental status grossly normal Results POC Mononucleosis Office Mononucleosis Negative Last Edit by Herminia Ellison on 06/24/24 09:03 Coding Level of Care Code Off vis,est,level 4 Diagnoses Fatigue R53.83 Assessment and Plan Assessment and Plan (1) Fatigue: Status: Acute Plan: Patient tested negative for mono in the office today. Blood work is ordered today with patient understanding that she will follow-up with a primary care provider for follow-up and treatment. Encouraged to get plenty of rest, drink lots of clear liquids. Patient also educated on other symptomatic management techniques. To be seen in 7-10 days if no improvement; sooner if worsening of symptoms. Patient advised of potential red flags and when appropriate to report to the ED. Patient verbalized understanding and agreement with all the above. Orders: Orders POC Mononucleosis Today R53.83 - Other fatigue CBC-Complete Blood Cnt No Diff Today R53.83 - Other fatigue Iron+Iron Binding Capacity Today R53.83 - Other fatigue Vitamin B12 Today R53.83 - Other fatigue Vitamin D,25 Hydroxy Today R53.83 - Other fatigue Clinical Quality Measures Falls Risk Screening/Assistive Devices Have you fallen in the past year?: No 06/24/24 0915 Date Panda Musa Signature: Date (if applicable) CC: Normal [facility] Vitamin B12on 06-24-2024 Cobalamin (Vitamin B12) [Mass/Vol] 1959 pg/mL High 211-911 [facility] Comment on above: Performed By: #### L 503.6030, L100.0500, L506.1000, L503.0105 #### [facility] [address] [place], [address] Vitamin D,25 Hydroxyon 06-24 Vitamin D 25-OH 18.6 ng/mL Normal [facility] Comment on above: Result Comment: Sandra min D 25(OH) Status Range Deficiency <20 ng/mL (50nmol/L) Insufficiency 20 - 30 ng/mL (50 - 75 nmol/L) Sufficiency 30 - 100 ng/mL (75 - 250 nmol/L) Toxicity >100 ng/mL (>250 nmol/L) Performed By: #### L 503.6030, L100.0500, L506.1000, L503.0105 #### [facility] [address] [place], [address] Lipid Profileon 04-16-2024 Cholesterol [Mass/Vol] 157 mg/dL Normal 200 [facility] Comment on above: Result Comment: <200 mg/dL Desirable 200-240 mg/dL Borderline >240 mg/dL High Risk Performed By: #### L 500.3400, L500.4100 #### [facility] [address] [place], [address] Cholesterol in HDL [Mass/Vol] 68 mg/dL Normal [facility] Comment on above: Result Comment: The drugs N-Acetylcysteine and Metamizole may falsely depress this assay. Reference Range HDL <40 mg/dL Low HDL Cholesterol HDL >or= 60 mg/dL High HDL Cholesterol Performed By: #### L 500.3400, L500.4100 #### [facility] [address] [place], [address] Cholesterol in LDL [Mass/Vol] 82 mg/dL Normal 0-130 [facility] Comment on above: Performed By: #### L 500.3400, L500.4100 #### [facility] [address] [place], [address] Cholesterol in VLDL [Mass/Vol] 7 mg/dL Normal 5-40 [facility] Comment on above: Performed By: #### L 500.3400, L500.4100 #### [facility] [address] [place], [address] Triglyceride [Mass/Vol] 34 mg/dL Normal [facility] Comment on above: Result Comment: The drugs N-Acetylcysteine and Metamizole may falsely depress this assay. Serum Triglycerides Reference Interval Normal <150 mg/dL Borderline high 150 - 199 mg/dL High 200 - 499 mg/dL Very High > or = 500 mg/dL Performed By: #### L 500.3400, L500.4100 #### [facility] [address] [place], [address] Liver Profileon 04-16-2024 Albumin [Mass/Vol] 4.3 g/dL Normal 3.2-5.0 [facility] Comment on above: Performed By: #### L 500.3400, L500.4100 #### [facility] [address] [place], [address] ALK P 77 U/L Normal 45-117 [facility] Comment on above: Performed By: #### L 500.3400, L500.4100 #### [facility] [address] [place], [address] ALT [Catalytic activity/Vol] 17 U/L Normal 13-56 [facility] Comment on above: Performed By: #### L 500.3400, L500.4100 #### [facility] [address] [place], [address] AST [Catalytic activity/Vol] 12 U/L Low 15-37 [facility] Comment on above: Performed By: #### L 500.3400, L500.4100 #### [facility] [address] [place], [address] Bilirubin [Mass/Vol] 0.40 mg/dL Normal 0.20-1.00 [facility] Comment on above: Result Comment: For patients on eltrombopag therapy, use of Dimension Prim TBIL is not recommended. Performed By: #### L 500.3400, L500.4100 #### [facility] [address] [place], [address] Bilirubin.direct [Mass/Vol] 0.16 mg/dL Normal 0.00-0.30 [facility] Comment on above: Performed By: #### L 500.3400, L500.4100 #### [facility] [address] [place], [address] Globulin (S) [Mass/Vol] 3.2 g/dL Normal 2.2-4.2 [facility] Comment on above: Performed By: #### L 500.3400, L500.4100 #### [facility] [address] [place], [address] T PROT 7.5 g/dL Normal 6.4-8.2 [facility] Comment on above: Performed By: #### L 500.3400, L500.4100 #### [facility] [address] [place], [address] Cardiology Visit Reporton Cardiology Visit Report [facility] [address] [place] [address] OFFICE VISIT Date of Service: 02/19/24 MR#: [id number] Acct: [id number] Name: PRISCILLA WALTERS Rep #: [id number] : 2000 Provider: CHARBEL Bronson Age/Sex: 23/F Location: [facility] Status: Signed [facility] History of Present Illness Details: Pleasant 21-year-old lady with a family history of coronary artery disease premature as well as elevated lipoprotein a level. 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 She also has a history of an elevated lipoprotein a level with a level of 150 nmol/L. She has had no dizziness or diaphoresis and occasional chest discomfort only no shortness of breath no palpitations no presyncope or syncope no family history of hypertrophic cardiomyopathy arrhythmias long QT syndrome congenital deafness or SIDS. From a cardiac standpoint, patient is doing well. She does not have any chest discomfort/heaviness/t ightness. Her exercise tolerance is stable for her age. She does not have any worsening symptoms of shortness of breath. She does not have any orthopnea. She denies PND. She does not have any symptoms of congestive heart failure. She does not have any palpitations that she is aware of. She does not have any lightheadedness or dizziness. She does not have any near- syncope or syncope. She does not have any lower extremity edema. She does not have any symptoms of claudication. Intake Vital Signs 09/27/23 11:03 02/19/24 15:11 Height 5 ft 2 in 5 ft 2 in Weight: 125 lb 8 oz 124 lb BMI 22.9 22.6 BP 110/64 110/70 Blood Pressure Location Lt brachial Lt brachial Position Sitting Sitting Respiration 15 18 Pulse 88 77 Pulse Source NIBP Monitor Temp 98.9 F Pulse Oximetry (%) 97 100 Oxygen Delivery Method room air Intake Visit Reasons: OVERDUE FOR FU / LAST SEEN 2021 Boiler Operator Required: No Is patient in pain?: No Allergies No Known Allergies Allergy (Verified 02/19/24 15:12) [facility] Medical History Acute pharyngitis, unspecified Urinary tract infection with hematuria Elevated lipoprotein A level Family History Uncle CAD (coronary artery disease) Myocardial infarction, Onset Age: 53 Social History current occupational status: student current occupation: [employer] sexually active: No Smoking Status: Never smoker alcohol intake: never substance use type: does not use what type of physical activity do you participate in: aerobics seatbelt use: always ROS Const Const: Negative for fatigue, weakness, fever(s) or headache(s) Eyes Eyes: Negative for blind spots, loss of peripheral vision or transient loss of vision ENT ENT: Negative for headache(s), dizziness, tinnitus, Nosebleed/epistaxis or balance problems Cardio Chest Pain: No Palpitations: No Edema: None Muscle aches with walking: None Resp Respiratory: Negative for SOB with activity, SOB at rest, SOB orthopnea SOB lying down or Cough GI GI: Negative nausea, vomiting, heartburn or vomiting blood/hematemesis : Negative for hematuria Musc Musc: Negative for muscle aches/ myalgia, muscle weakness, joint pain or balance problems Neuro Neuro: Negative for dizziness, lightheadedness, near syncope, syncope, orthostatic symptoms, headache(s) or weakness Vishal Hematologic/Lymphatic: Negative for easy bleeding Endo Endo: Negative for fatigue Cardiology Exam Const Appearance: cooperative, no acute distress and well developed Orientation: alert, awake and oriented x3 Head Head: normocephalic and atraumatic Mouth: moist mucous membranes Eyes General: appearance normal, both eyes and all related structures Conjunctivae: conjunctivae normal Pupils: PERRL EOM: EOM intact bilaterally Neck Neck: normal visual inspection, no lymphadenopathy and no JVD Carotids: Negative bruit Neck Mass: Negative Neck mass Chest Chest inspection: normal inspection of the chest and symmetric chest movement Auscultation: Bilateral: Clear to Auscultation Cardio Palpation: normal PMI Rate: regular rate Rhythm: regular rhythm Heart sounds: S1 normal and S2 normal; Negative rub, gallop or murmur GI GI: normal to inspection, soft, no hepatosplenomegaly and bowel sounds present; Negative tender Neuro General: patient alert, patient awake, patient oriented x3, CN's II-XI intact bilaterally and moves all extremities Extremities Pulses: Normal: Right Posterior Tibial Pulse, Left Posterior Tibial Pulse, Right Radial Pulse and Left Radial Pulse Lower Extremity Edema: None: Bilateral Psych Psy (more content not included)... Normal [facility] Amorphous sediment detection in urine sediment by light microscopyon 06-13-2022 Amorphous sediment LM Ql (Urine sed) 1+ [facility] Work Phone: Basophil percentageon 2021 Basophil percentage 25-50 SEEN /hpf 0-5 [facility] Work Phone: Bilirubin Test strip Ql (U)o n 06-13-2022 Bilirubin Ql (U) 3 mg/dL Negative [facility] Work Phone: Comment on above: COLOR OF URINE MAY A FFECT DIPSTICK RESULTS. Ketones Test strip Ql (U)on 06-13-2022 Ketones Ql (U) Negative Negative [facility] Work Phone: Mucus LM Ql (Urine sed)on Mucus Ql (Urine sed) 0 SEEN /hpf [facility] Work Phone: Nitrite Test strip Ql (U)on 06-13-2022 Nitrite Ql (U) Positive Negative [facility] Work Phone: No Panel Informationon 06-13 Urine Transitional Epithelial Cells 0-5 SEEN /hpf 0-5 [facility] Work Phone: Protein Test strip Ql (U)on 06-13-2022 Protein Ql (U) 30 mg/dl Negative [facility] Work Phone: Squamous epithelial cells de tection in urine sediment by light microscopyon 06-13-2022 Epithelial cells.squamous LM Ql (Urine sed) 0-5 SEEN /hpf 5-10 [facility] Work Phone: Urine blood detectionon 06-04 RBC Ql (U) 150 /ul Negative [facility] Work Phone: RBC Ql (U) 10-25 SEEN /hpf 0-5 [facility] Work Phone: Urine clarityon 06-13-2022 Clarity (U) Cloudy Clear [facility] Work Phone: Urine color determinationon 06-13-2022 Color (U) [place] Yellow [facility] Work Phone: Urine glucose detectionon Glucose Ql (U) Normal mg/dl Normal [facility] Work Phone: Urine leukocyte esterase det ection by dipstickon 06-13-2022 Leukocyte esterase Test strip Ql (U) 100 /ul Negative [facility] Work Phone: Urine pHon 06-13-2022 pH (U) 6.0 [pH] 5.0 - 8.0 [facility] Work Phone: Urine sediment bacteria coun t by microscopy (number/high power field)on 06-13-2022 Bacteria LM.HPF (Urine sed) [#/Area] 4 /[HPF] None Seen [facility] Work Phone: Urine sediment renal epithel ial cell count by microscopy (number/high power field)on 06-13-2022 Epithelial cells.renal LM.HPF (Urine sed) [#/Area] 5 /[HPF] 0-5 [facility] Work Phone: Urine specific gravity measu rementon 06-13-2022 Specific gravity (U) [Rel density] 1.020 1.002-1.030 [facility] Work Phone: Urobilinogen Auto test strip Ql (U)on 06-13-2022 Urobilinogen Ql (U) 4 mg/dl Normal [facility] Work Phone: Laboratory - Chemistry and C hemistry - challengeon 06-12-2022 HCG ( test) Ql (U) Negative [facility] Work Phone: Bilirubin Ql (U) Negative [facility] Work Phone: Glucose Ql (U) Negative [facility] Work Phone: Ketones Ql (U) Trace (5) [facility] Work Phone: pH (U) 6.5 [pH] [facility] Work Phone: [phone] Specific gravity (U) [Rel density] 1.020 [facility] Work Phone: [phone] Urobilinogen (U) [Mass/Vol] Negative [facility] Work Phone: [phone] Laboratory - Hematology and Cell countson 06-12-2022 Hemoglobin Ql (U) Hemolyzed [facility] Work Phone: [phone] Laboratory - Specimen inform ationon 06-12-2022 Clarity (U) Cloudy [facility] Work Phone: [phone] Color (U) ORANGE [facility] Work Phone: [phone] Laboratory - Urinalysison Nitrite Ql (U) Negative [facility] Work Phone: [phone] Ql (U) Negative [facility] Work Phone: [phone] No Panel Informationon 06-12 Urine Leukocytes Positive [facility] Work Phone: [phone] Non-Hemolyzed Blood Moderate [facility] Work Phone: Basophil percentageon 2021 Bilirubin [Mass/Vol] 0.40 mg/dL 0.20-1.00 [facility] Work Phone: [phone] Comment on above: For patients on eltr ombopag therapy, use of Dimension Prim TBIL is not recommended. Cholesterol [Mass/Vol] 170 mg/dL <200 [facility] Work Phone: [phone] Comment on above: <200 mg/dL Desirable 200-240 mg/dL Borderline >240 mg/dL High Risk Protein [Mass/Vol] 7.4 g/dL 6.4-8.2 [facility] Work Phone: [phone] Triglyceride [Mass/Vol] 112 mg/dL <199 [facility] Work Phone: [phone] Comment on above: The drugs N-Acetylcy steine and Metamizole may falsely depress this assay.Serum Triglycerides Reference Interval Normal <150 mg/dL Borderline high 150 - 199 mg/dL High 200 - 499 mg/dL Very High > or = 500 mg/dL Direct bilirubinon Bilirubin.direct [Mass/Vol] 0.10 mg/dL 0.00-0.30 [facility] Work Phone: [phone] Laboratory - Chemistry and C hemistry - challengeon 06-06-2022 ALP [Catalytic activity/Vol] 61 U/L 45-117 [facility] Work Phone: [phone] ALT [Catalytic activity/Vol] 37 U/L 13-56 [facility] Work Phone: [phone] Globulin (S) [Mass/Vol] 3.7 g/dL 2.2-4.2 [facility] Work Phone: [phone] Serum or plasma albumin eugene urement (mass/volume)on 06-06-2022 Albumin [Mass/Vol] 3.7 g/dL 3.2-5.0 [facility] Work Phone: [phone] Serum or plasma cholesterol in HDL measurement (mass/volume)on 06-06-2022 Cholesterol in HDL [Mass/Vol] 46 mg/dL >40 [facility] Work Phone: Comment on above: The drugs N-Acetylcy steine and Metamizole may falsely depress this assay. Reference Range HDL <40 mg/dL Low HDL Cholesterol HDL >or= 60 mg/dL High HDL Cholesterol Serum or plasma cholesterol in VLDL measurement (mass/volume)on 06-06-2022 Cholesterol in VLDL [Mass/Vol] 22 mg/dL 5-40 [facility] Work Phone: [phone] Serum or plasma low density lipoprotein (LDL) cholesterol measurement (mass/volume)on 06-06-2022 Cholesterol in LDL [Mass/Vol] 102 mg/dL 0-130 [facility] Work Phone: [phone] Thin prep Papanicolaou smear with manual screeningon 06-06-2022 Thin prep Papanicolaou smear with manual screening 20 U/L 15-37 [facility] Work Phone: Basophil percentageon 2021 C. trachomatis DNA JERED+probe Ql (Unsp spec) Negative Negative [facility] Work Phone: [phone] Neisseria gonorrhoeae detect ion by PCRon 04-17-2022 N. gonorrhoeae DNA JERED+probe Ql (Cervical mucus) Negative Negative [facility] Work Phone: Progress Noteon 12-13-2021 Senior Energy Trader Authentication Interface Message Text Priscilla Walters is a here for follow-up of Chief Complaint Patient presents with New Patient Visit [facility] Cardiac Disorder History of Presenting Problem Priscilla Walters is a 21 year old female who presents to the clinic today for a cardiac evaluation. She is accompanied by her mother. Priscilla was recently seen at her PCP for a well child visit. Priscilla states a murmur was noted at that visit. Family also has a history of Lipoprotein A elevation. Maternal uncle had a heart attack at 53 years old and had a 99% blockage. Other family members are also being checked for this. 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 She is following with an adult dictaphone mechanic. 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 Priscilla is active with no history of activity intolerance. She was in track, gymnastics, and cheer leading in high school. She is now heading to college at the [employer] to study Horse production and management. Denies any chest pain, excessive shortness of breath, heart racing, palpitations or syncope. No family history of hypertrophic cardiomyopathy, arrhythmias, long QT syndrome, congenital deafness, SIDS, or sudden or unexplained in the young. Cardiac Review of System Cardiovascular: Patient's ECG reviewed. Patient has a murmur. Patient has no chest pain, dizziness, palpitations or syncope. Patient has no dyspnea. Review of Systems Constitutional: Negative. HENT: Negative. Respiratory: Negative. Cardiovascular: Negative for palpitations and syncope. Gastrointestinal: Negative. Genitourinary: Negative. Skin: Negative. Neurological: Negative for dizziness. Interval and Past Medical History History reviewed. No pertinent past medical history. History reviewed. No pertinent surgical history. Social History Socioeconomic History Marital status: Single Spouse name: None Number of children: None Years of education: None Highest education level: None Tobacco Use Smoking status: Never Smokeless tobacco: Never Medications: Outpatient Encounter Medications as of 12/13/2021 Medication Sig Dispense Refill levonorgestrel-ethinyl estradiol (AVIANE) 0.1-20 MG-MCG per tablet Levonorgestrel-Ethin Estradiol (Orsythia-28 Tablet) 0.1-20 mg-mcg tablet Levonorgestrel-Ethin Estradiol (Orsythia-28 Tablet) 0.1-20 mg-mcg tablet Active 1 TAB PO daily May 29, 2020 2:47pm 05-29-2020 [facility] ([id number]) No facility-administered encounter medications on file as of 12/13/2021. Allergies: No Known Allergies Physical Exam: Vitals: 12/13/21 0952 BP: 115/64 Pulse: 66 Resp: 16 Blood pressure percentiles are not available for patients who are 18 years or older. Height: 158 cm 21 %ile (Z= -0.81) based on CDC (Girls, 2-20 Years) [id number] data based on Stature recorded on 12/13/2021. Weight - Scale: 56.7 kg 47 %ile (Z= -0.07) based on [facility] (Girls, 2-20 Years) [id number] data using vitals from 12/13/2021. Physical Exam Constitutional: General: She is not in acute distress. Appearance: Normal appearance. She is not ill-appearing. HENT: Head: Normocephalic and atraumatic. Mouth/Throat: Mouth: Mucous membranes are moist. Eyes: Conjunctiva/sclera: Conjunctivae normal. Cardiovascular: Normal rate, regular rhythm, normal heart sounds and normal pulses. Exam reveals no gallop and no friction rub. No murmur heard. Pulmonary: Effort: Pulmonary effort is normal. No respiratory distress. Breath sounds: Normal breath sounds. No stridor. No wheezing, rhonchi or rales. Chest: Chest wall: No tenderness. Abdominal: General: Bowel sounds are normal. There is no distension. Palpations: Abdomen is soft. There is no mass. Tenderness: There is no abdominal tenderness. Skin: General: Skin is warm and dry. Capillary Refill: Capillary refill takes less than 2 seconds. Neurological: General: No focal deficit present. Mental Status: She is alert. Psychiatric: Mood and Affect: Mood normal. Behavior: Behavior normal. Thought Content: Thought content normal. Studies: EKG: Normal Sinus Rhythm, mild sinus arrhythmia. Impression: Healthy 21 year old girl presents to the clinic for a cardiac evaluation. EKG and cardiac exam normal. 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 Her level was 150.1 nmol/L (Normal range <75) This may be related to early coronary artery disease. She is at risk of passing this trait on to her children. She has no acute issues and no concerns for congenital heart disease. Plan/Recommendations: Recommend follow up with Adult Handbag Frames Inspector who specializes in Lipoprotein A disorders. No cardiac contraindications to physical activities. No need for f/u in Pediatric Cardiology. Counseling and/or coordination of care (face to face time in the office/outpatient setting or floor/unit time in the hospital) was gre (more content not included)... Normal [facility] - Chemistry and C hemistry - challengeon 12-10-2021 Lipoprotein a [Moles/Vol] 150.1 nmol/L [facility] Work Phone: Comment on above: Note: Values greater than or equal to 75.0 nmol/L may indicate an independent risk factor for CHD, but must be evaluated with caution when applied to non- populations due to the influence of genetic factors on Lp(a) across ethnicities.Performed at: [facility] Director: Clayton Bashir PhD, Phone: [phone] Progress Noteon 12-10-2021 Senior Energy Trader Authentication Interface Message Text Priscilla Walters is a 21 y.o. female patient. PHQ9 Assessment With Score Performed by: Jazlyn Jones MD Authorized by: Jazlyn Jones MD PHQ-9 See PHQ9 Flowsheet Feeling down, depressed, irritable or hopeless: Not at all Little interest or pleasure in doing things: Not at all Trouble falling or staying sleep, or sleeping too much: Not at all Poor appetite, weight loss, or overeating: Several days Feeling tired or having little energy: Not at all Feeling bad about yourself - or feeling that you are a failure, or have let yourself or your family down: Not at all Trouble concentrating on things, like school work, reading or watching TV: Not at all Moving or speaking so slowly that other people could have noticed. Or the opposite - being so fidgety or restless that you were moving around a lot more than usual: Not at all Thoughts that you would be better off , or of hurting yourself in some way: Not at all In the past year have you felt depressed or sad most days, even if you felt OK sometimes?: No If you are experiencing any of the problems on this form, how difficult have these problems made it for you to do your work, take care of things at home or get along with other people?: Not difficult at all Has there been a time in the past month when you have had serious thoughts about ending your life?: No Have you ever, in your whole life, tried to kill yourself or made a suicide attempt?: No PHQ-9 Manual Score: 1 PHQ-9 Total Score: 1 Health Risk Assessment - CRAFFT Authorized by: Jazlyn Jones MD CRAFFT Results: 1. Drink more than a few sips of beer, wine, or any drink containing alcohol? Put 0 if none.: 0 2. Use any marijuana (weed, oil, or hash by smoking, vaping, or in food) or synthetic marijuana (like K2, Spice)? Put 0 if none.: 0 3. Use anything else to get high (like other illegal drugs, prescription or eaoo-gfm-erichak medications, and things that you sniff, aviles, or vape)? Put 0 if none.: 0 4. Use any tobacco or nicotine products (for example, cigarettes, e-cigarettes, hookahs or smokeless tobacco)?: 0 5. Have you ever ridden in a CAR driven by someone (including yourself) who was high or had been using alcohol or drugs?: No Electronically signed by: Jazlyn Jones Psychiatricrj ID: Priscilla Walters is a 21 y.o. female. Her chief complaint(s) include: 21 YEAR WELL CHILD (Would like lab work/testing done due to family history of heart disease and heart racing with exercise.) Assessment 1. Routine general medical examination at a health care facility 2. Need for vaccination 3. Family history of cardiac disorder Plan Priscilla was seen today for 21 year well child. Diagnoses and all orders for this visit: Routine general medical examination at a health care facility - PHQ9 Assessment With Score - Health Risk Assessment - CRAFFT Need for vaccination - Meningococcal B (BEXSERO) Family history of cardiac disorder - Lipoprotein A; Future - AMB Referral To Cardiology; Future growth and development reviewed Call for any questions/concerns/pro blems/changes All questions answered Return in about 1 year (around 12/10/2022) for well check. Subjective She is unaccompanied. 21 YEAR WELL CHILD Education: Priscilla is in freshman year of college and is doing well. Eating: Priscilla eats regular meals including fruits and vegetables. Activities & Sports: Priscilla has friends, performs at least 1 hour of physical activity daily and plays recreational sports. Drugs: Priscilla does not use tobacco and does not use alcohol. Menstruation Menstruation: regular periods Output Urine and Stool Pattern: Urine and Stool Pattern: Normal stool pattern, normal urine pattern. Sleep Sleeping Difficulty: no difficulty sleeping Screenings Hearing Vision Concerns: The caregiver has no concerns about the patient's hearing. The caregiver has no concerns about the patient's vision. Primary Care Review of Systems Objective Vital Signs 12/10/21 1402 BP: 135/75 Pulse: 71 Weight: 57.3 kg Height: (!) 156.2 cm Body mass index is 23.49 kg/m . Physical Exam Nursing note reviewed. Constitutional: She appears well. She is active. No distress. HENT: Head: Atraumatic. Ears: Right Ear: Tympanic membrane normal. Left Ear: Tympanic membrane normal. Mouth/Throat: Mucous membranes are moist. Eyes: Conjunctivae are normal. Cardiovascular: Normal rate and regular rhythm. Heart murmur not heard. Pulmonary/Chest: Breath sounds normal. There is normal air entry. Neurological: She is alert. Vitals reviewed: Blood pressure 135/75, pulse 71, height (!) 156.2 cm, weight 57.3 kg. Normal [facility] Basophil percentageon 2021 C. trachomatis DNA JERED+probe Ql (Unsp spec) Negative Negative [facility] Work Phone: Neisseria gonorrhoeae detect ion by PCRon 11-07-2021 N. gonorrhoeae DNA JERED+probe Ql (Cervical mucus) Negative Negative [facility] Work Phone: Office Visit: UC: earacheon 04-08-2017 Documentation of current medications (procedure) T Invalid Interpretation Code [facility] Work Phone: Documentation of current medications (procedure) Done Invalid Interpretation Code [facility] Work Phone: Tobacco smoking status NHIS Never Invalid Interpretation Code [facility] Work Phone: Tobacco use [facility] Never smoker Invalid Interpretation Code [facility] Work Phone: Culture, urine Bacteria identified Cx Nom (U) Presumptive E. coli [facility] Work Phone: Vital Signs Date Time Vital Sign Value Performing Clinician Faci lity 06-12-2022 14:56-0500 Body temperature 97.8 [degF] CARGO SUPERVISOR-C Alia Mclennan CARGO SUPERVISOR Work Phone: [facility] Work Phone: 06-12-2022 14:56-0500 Diastolic blood pressure 66 mm[Hg] CARGO SUPERVISOR-C Alia Orlando CARGO SUPERVISOR Work Phone: [facility] Work Phone: 06-12-2022 14:56-0500 Heart rate 106 /min CARGO SUPERVISOR-C Alia Orlando CARGO SUPERVISOR Work Phone: [facility] Work Phone: 06-12-2022 14:56-0500 Respiratory rate 14 /min CARGO SUPERVISOR-C Alia Mclennan CARGO SUPERVISOR Work Phone: [facility] Work Phone: 06-12-2022 14:56-0500 SaO2% (BldA) [Mass fraction] 98 % CARGO SUPERVISOR-C Alia Mclennan CARGO SUPERVISOR Work Phone: [facility] Work Phone: 06-12-2022 14:56-0500 Systolic blood pressure 108 mm[Hg] CARGO SUPERVISOR-C Alia Orlando CARGO SUPERVISOR Work Phone: [facility] Work Phone: 05-15-2022 12:51-0400 Body height 157.48 cm CARGO SUPERVISOR-C Alia Orlando CARGO SUPERVISOR Work Phone: [facility] Work Phone: 05-15-2022 12:51-0400 Body mass index (BMI) [Percentile] Per age and sex 70 % CARGO SUPERVISOR-C Alia Mclennan CARGO SUPERVISOR Work Phone: [facility] Work Phone: 05-15-2022 12:51-0400 Body mass index (BMI) [Ratio] 23.6 kg/m2 CARGO SUPERVISOR-C Alia Orlando CARGO SUPERVISOR Work Phone: [facility] Work Phone: 05-15-2022 12:51-0400 Body weight 58.51 kg CARGO SUPERVISOR-C Alia Orlando CARGO SUPERVISOR Work Phone: [facility] Work Phone: 05-15-2022 12:51-0400 Diastolic blood pressure 75 mm[Hg] CARGO SUPERVISOR-C Alia Orlando CARGO SUPERVISOR Work Phone: [facility] Work Phone: 05-15-2022 12:51-0400 Heart rate 76 /min CARGO SUPERVISOR-C Alia Mclennan CARGO SUPERVISOR Work Phone: [facility] Work Phone: 05-15-2022 12:51-0400 Respiratory rate 16 /min CARGO SUPERVISOR-C Alia Mclennan CARGO SUPERVISOR Work Phone: [facility] Work Phone: 05-15-2022 12:51-0400 SaO2% (BldA) [Mass fraction] 100 % CARGO SUPERVISOR-C Alia Mclennan CARGO SUPERVISOR Work Phone: [facility] Work Phone: 05-15-2022 12:51-0400 Systolic blood pressure 127 mm[Hg] CARGO SUPERVISOR-C Alia Orlando CARGO SUPERVISOR Work Phone: [facility] Work Phone: 04-17-2022 13:03-0400 Body mass index (BMI) [Percentile] Per age and sex 79.4 % CARGO SUPERVISOR-C Alia Mclennan CARGO SUPERVISOR Work Phone: [facility] Work Phone: 04-17-2022 13:03-0400 Body mass index (BMI) [Ratio] 25 kg/m2 CARGO SUPERVISOR-C Alia Mclennan CARGO SUPERVISOR Work Phone: [facility] Work Phone: 04-17-2022 13:03-0400 Diastolic blood pressure 82 mm[Hg] CARGO SUPERVISOR-C Alia Mclennan CARGO SUPERVISOR Work Phone: [facility] Work Phone: 04-17-2022 13:03-0400 Systolic blood pressure 124 mm[Hg] CARGO SUPERVISOR-C Alia Orlando CARGO SUPERVISOR Work Phone: [facility] Work Phone: 04-17-2022 13:01-0400 Body weight 62.14 kg CARGO SUPERVISOR-C Alia Orlando CARGO SUPERVISOR Work Phone: [facility] Work Phone: 11-07-2021 14:55-0400 Body height 157.48 cm CARGO SUPERVISOR-C Alia Orlando CARGO SUPERVISOR Work Phone: [facility] Work Phone: 11-07-2021 14:55-0400 Body mass index (BMI) [Ratio] 24.7 kg/m2 CARGO SUPERVISOR-C Alia Mclennan CARGO SUPERVISOR Work Phone: [facility] Work Phone: 11-07-2021 14:55-0400 Body weight 61.23 kg CARGO SUPERVISOR-C Alia Orlando CARGO SUPERVISOR Work Phone: [facility] Work Phone: 11-07-2021 14:55-0400 Diastolic blood pressure 80 mm[Hg] CARGO SUPERVISOR-C Alia Mclennan CARGO SUPERVISOR Work Phone: [facility] Work Phone: 11-07-2021 14:55-0400 Systolic blood pressure 122 mm[Hg] CARGO SUPERVISOR-C Alia Mclennan CARGO SUPERVISOR Work Phone: [facility] Work Phone: 04-08-2017 16:27-0400 BMI (Body Mass Index) 18.75 kg/m2 Rosa Ocampo LPN [facility] Work Phone: 04-08-2017 16:27-0400 Body Temperature 99.1 [degF] Rosa Ocampo LPN [facility] Work Phone: 04-08-2017 16:27-0400 BP Diastolic 64 mm[Hg] Rosa Ocampo LPN [facility] Work Phone: 04-08-2017 16:27-0400 BP Systolic 112 mm[Hg] Rosa Ocampo LPN [facility] Work Phone: 04-08-2017 16:27-0400 Height 152.4 cm Rosa Ocampo LPN [facility] Work Phone: 04-08-2017 16:27-0400 Pulse (Heart Rate) 102 /min Rosa Ocampo LPN [facility] Work Phone: 04-08-2017 16:27-0400 Respiratory Rate 18 /min Rosa Ocampo LPN [facility] Work Phone: 04-08-2017 16:27-0400 Weight 43.55 kg Rosa Ocampo LPN [facility] Work Phone: Encounters Encounter Date Encounter Type Care Provider Facility Start: 01-31-2025 ambulatory Kitty Siddiqui Facility :[facility] Start: 01-28-2025 ambulatory VIRIDIANA FAUSTIN MD Facility :A Start: 01-11-2025 End: 01-11-2025 ambulatory VIRIDIANA FAUSTIN MD [facility] Start: 01-11-2025 End: 01-11-2025 Patient encounter procedure VIRIDIANA FAUSTIN MD [facility] Start: 08-03-2024 End: 08-03-2024 ambulatory KITTY SIDDIQUI DO [facility] Start: 08-03-2024 End: 08-03-2024 Patient encounter procedure KITTY SIDDIQUI DO [facility] Start: 08-03-2024 End: 08-03-2024 ambulatory No Primary Care Physician Facility:[facility] Start: 06-24-2024 End: 06-24-2024 ambulatory Panda Su PA Facility:[facility] Start: 06-24-2024 End: 06-24-2024 ambulatory Panda BARGER Facility:[facility] Start: 04-16-2024 End: 04-16-2024 ambulatory Maude BARGER Facility:[facility] Start: 02-19-2024 End: 02-19-2024 ambulatory Maude BARGER Facility:[facility] Start: 07-23-2022 Non-patient / Non-visit CARGO SUPERVISOR-C Ashlee Perry CARGO SUPERVISOR Work Phone: [facility] Start: 07-23-2022 End: 07-23-2022 ambulatory CARGO SUPERVISOR-C Alia Perry CARGO SUPERVISOR Work Phone: [facility] Work Phone: Start: 07-23-2022 End: 07-23-2022 Patient encounter procedure CARGO SUPERVISOR-C Alia Perry CARGO SUPERVISOR Work Phone: [facility] Start: 06-12-2022 End: 06-12-2022 ambulatory CARGO SUPERVISOR-C Alia Perry CARGO SUPERVISOR Work Phone: [facility] Work Phone: Start: 06-12-2022 End: 06-12-2022 Patient encounter procedure CARGO SUPERVISOR-C Alia Perry CARGO SUPERVISOR Work Phone: [facility] Start: 06-06-2022 End: 06-06-2022 ambulatory CARGO SUPERVISOR-C Alia Perry CARGO SUPERVISOR Work Phone: [facility] Work Phone: Start: 06-06-2022 End: 06-06-2022 Patient encounter procedure CARGO SUPERVISOR-C Alia Perry CARGO SUPERVISOR Work Phone: [facility] Start: 05-15-2022 End: 05-15-2022 Patient encounter procedure CARGO SUPERVISOR-C Alia Perry CARGO SUPERVISOR Work Phone: [facility] Start: 04-17-2022 End: 04-17-2022 Patient encounter procedure CARGO SUPERVISOR-Ashlee Perry CARGO SUPERVISOR [facility] Start: 04-17-2022 End: 04-17-2022 Patient encounter procedure CARGO SUPERVISOR-Ashlee Perry CARGO SUPERVISOR Work Phone: [facility] Start: 12-10-2021 End: 12-10-2021 Patient encounter procedure CARGO SUPERVISOR-Ashlee Perry CARGO SUPERVISOR Work Phone: [facility] [place] Start: 11-07-2021 End: 11-07-2021 Patient encounter procedure CARGO SUPERVISOR-Ashlee Perry CARGO SUPERVISOR Work Phone: [facility] Start: 11-07-2021 End: 11-07-2021 Patient encounter procedure CARGO SUPERVISOR-Ashlee Perry CARGO SUPERVISOR [facility] Procedures Date Procedure Procedure Detail Performing Clinician Urine culture CARGO SUPERVISORAntelmo Perry CARGO SUPERVISOR Work Phone: Plan of Treatment Date Care Activity Detail Author Start: 06-13-2022 [facility] Work Phone: Start: 04-08-2017 End: 04-08-2017 Appointment Appointment [facility] Work Phone: Bacteria identified in Urine by Culture Urine Culture [facility] Work Phone: Patient Education [facility] Work Phone: [facility] Work Phone: Immunizations Immunization Date Immunization Notes Care Provider Fa cili 12-10-2021 meningococcal B vacc ine, recombinant, OMV, adjuvanted VIRIDIANA FAUSTIN MD [facility] 10-25-2020 hepatitis A vaccine, pediatric dosage, unspecified formulation VIRIDIANA FAUSTIN MD [facility] 10-25-2020 Human Papillomavirus Quadval VIRIDIANA FAUSTIN MD [facility] 10-25-2020 influenza virus vacc ine, unspecified formulation VIRIDIANA FAUSTIN MD [facility] 10-25-2020 meningococcal B vacc ine, recombinant, OMV, adjuvanted VIRIDIANA FAUSTIN MD [facility] 10-14-2019 hepatitis A vaccine, pediatric dosage, unspecified formulation VIRIDIANA FAUSTIN MD [facility] 10-14-2019 Human Papillomavirus Jose Francisco FAUSTIN MD [facility] 03-25-2019 Human Papillomavirus Jose Francisco FAUSTIN MD [facility] 03-25-2019 meningococcal polysaccharide (groups A, C, Y and W-135) diphtheria toxoid conjugate vaccine (MCV4P) VIRIDIANA FAUSTIN MD [facility] 03-25-2019 tetanus toxoid, redu berna diphtheria toxoid, and acellular pertussis vaccine, adsorbed VIRIDIANA FAUSTIN MD [facility] 10-05-2015 influenza virus vacc ine, unspecified formulation VIRIDIANA FAUSTIN MD [facility] 07-06-2014 influenza virus vacc ine, unspecified formulation VIRIDIANA FAUSTIN MD [facility] 07-06-2014 meningococcal polysaccharide (groups A, C, Y and W-135) diphtheria toxoid conjugate vaccine (MCV4P) VIRIDIANA FAUSTIN MD [facility] 07-06-2014 tetanus toxoid, redu berna diphtheria toxoid, and acellular pertussis vaccine, adsorbed VIRIDIANA FAUSTIN MD [facility] 02-25-2013 varicella virus vaccine BLANKA FAUSTIN MD [facility] 04-27-2008 diphtheria, tetanus toxoids and acellular pertussis vaccine, unspecified formulation VIRIDIANA FAUSTIN MD [facility] 04-27-2008 measles/mumps/rubell a virus vaccine VIRIDIANA FAUSTIN MD [facility] 04-27-2008 poliovirus vaccine, inactivated VIRIDIANA FAUSTIN MD [facility] 10-04-2005 influenza virus vacc ine, unspecified formulation VIRIDIANA FAUSTIN MD [facility] 06-06-2004 influenza virus vacc ine, unspecified formulation VIRIDIANA FAUSTIN MD [facility] 03-02-2004 diphtheria, tetanus toxoids and acellular pertussis vaccine, unspecified formulation VIRIDIANA FAUSTIN MD [facility] 03-02-2004 haemophilus influenz ae type b vaccine, PRP-T conjugate VIRIDIANA FAUSTIN MD [facility] 12-10-2003 measles/mumps/rubell a virus vaccine VIRIDIANA FAUSTIN MD [facility] 12-10-2003 varicella virus vaccine BLANKA FAUSITN MD [facility] 09-17-2003 hepatitis B pediatri c vaccine VIRIDIANA FAUSTIN MD [facility] 05-26-2003 diphtheria, tetanus toxoids and acellular pertussis vaccine, unspecified formulation VIRIDIANA FAUSTIN MD [facility] 05-26-2003 haemophilus influenz ae type b vaccine, PRP-T conjugate VIRIDIANA FAUSTIN MD [facility] 05-26-2003 poliovirus vaccine, inactivated VIRIDIANA FAUSTIN MD [facility] 04-02-2003 diphtheria, tetanus toxoids and acellular pertussis vaccine, unspecified formulation VIRIDIANA FAUSTIN MD [facility] 04-02-2003 haemophilus influenz ae type b vaccine, PRP-T conjugate VIRIDIANA FAUSTIN MD [facility] 04-02-2003 poliovirus vaccine, inactivated VIRIDIANA FAUSTIN MD [facility] 02-05-2003 diphtheria, tetanus toxoids and acellular pertussis vaccine, unspecified formulation VIRIDIANA FAUSTIN MD [facility] 02-05-2003 haemophilus influenz ae type b vaccine, PRP-T conjugate VIRIDIANA FAUSTIN MD [facility] 02-05-2003 poliovirus vaccine, inactivated VIRIDIANA FAUSTIN MD [facility] 01-03-2003 hepatitis B pediatri c vaccine VIRIDIANA FAUSTIN MD [facility] 2002 hepatitis B pediatri c vaccine VIRIDIANA FAUSTIN MD [facility] Payers Date Payer Category Payer Private Health Insurance [id number] 2025 Private Health Insurance [id number] 2024 Unknown [id number] 2024 Self-pay [id number] 2023 Unknown [id number] 2002 Unknown [id number] 2.16. [id number] 2002 Unknown [id number] 2.16.8 [id number] 2002 Unknown [id number] 2.16. [id number] Unknown [id number] 2.16.8 [id number] Unknown [id number] 2.16.8 [id number] Unknown [id number] 2.16.8 [id number] Unknown [id number] 2.16.8 [id number] Unknown [id number] 2.16.8 [id number] Unknown [id number] 2.16.8 [id number] Social History Date Type Detail Facility Start: 11-07-2021 End: 06-12-2022 Tobacco smoking status WYIS Unknown if ever smoked [facility] Work Phone: Start: 2000 Sex Assigned At Female A [facility] Start: 08-02-2024 Tobacco smoking status Ex-smoker (fi nding) [facility] Sexual Orientation [facility] Chary rodriguez [facility] Sex Female (finding) [facility] Evaluation + Plan note 01-11-2025 Note Date & Type Note Facility 01-11-2025 Evaluation + Plan note Diagnostic Tests PendingLyme Disease Serology w/Reflex 01/11/25Methylmalonic Acid, Serum 01/11/25 [facility] Evaluation + Plan note Note Date & Type Note Facility Evaluation + Plan note Future Appointments Appointment Date:10/28/2024 08:00:00 AM Scheduled Provider:KITTY SIDDIQUI DO Location:[facility] Appointment Type:PC OV [facility] Evaluation note Note Date & Type Note Facility Evaluation note Diagnosis Onset Date Menorrhagia with irregular cycle acute [facility] Work Phone: Evaluation note Note Date & Type Note Facility Evaluation note Diagnosis Onset Date Menorrhagia with irregular cycle acute Possible exposure to STD non eactive Chest pain acute Elevated lipoprotein A level acute Urinary tract infection with hematuria acute [facility] Work Phone: Hospital course Narrative Note Date & Type Note Facility Hospital course Narrative No data available for this section [facility] Discharge instructions Note Date & Type Note Facility Hospital Discharge instructions No data available for this section [facility] Progress note Note Date & Type Note Facility Progress note No data available for this section [facility] Chief Complaint and Reason for Visit 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 Menorrhagia with irr egular cycle Chief Complaint bleeding x2 mos whil e on BC, no missed doses elevated lipoproteins/ okayed by [employer] CONCERN FOR UTI Reason for Visit Menorrhagia with irr egular cycle Possible exposure to STD Chest pain Elevated lipoprotein A level Urinary tract infection with hematuria Chief Complaint bleeding x2 mos whil e on BC, no missed doses elevated lipoproteins/ okayed by [employer] CONCERN FOR UTI DYSPNEA Reason for Visit Menorrhagia with irr egular cycle Possible exposure to STD Chest pain Elevated lipoprotein A level Urinary tract infection with hematuria Summary Purpose Family History No Family History Records Found Relationship Condition Age at Onset Recorded Date/T tiffani uncle Coronary artery disease Unknown Myocardial infarction 55 Advance Directives No Advanced Directives Records FoundNo Advanced Directives Records FoundNo Advanced Directives Records FoundNo Advanced Directives Records Found Additional Source Comments Goals (unrecognized section and content) Goals may be documented in a n alternate sectionGoals may be documented in an alternate sectionGoals may be documented in an alternate sectionGoals may be documented in an alternate sectionGoals may be documented in an alternate section No data available for this section No data available for this section INFORMATION SOURCE (unrecogn ized section and content) DATE CREATED AUTHOR 12/15/2021 [facility] DATE CREATED AUTHOR AUTHOR'S ORGANIZ ATION 01/18/2025 [facility] DATE CREATED AUTHOR AUTHOR'S ORGANIZ ATION 01/30/2025 [facility] DATE CREATED AUTHOR AUTHOR'S ORGANIZ ATION 01/31/2025 [facility] Patient Care team informatio n (unrecognized section and content) Care Team Personnel Name: KITTY SIDDIQUI DO Position: P4 Physician - Primary Care Member Role: Primary Care Physician Address: [address] [place] [address] Telecom: Care Team Related Persons Name: MIKE WALTERS Care Team Personnel Name: KITTY SIDDIQUI DO Position: P4 Physician - Primary Care Member Role: Primary Care Physician Address: [address] [place] [address] Telecom: Care Team Related Persons Name: MIKE WALTERS FOR RECORDS PERTAINING TO PATIENTS WHO ARE OR HAVE BEEN ENROLLED IN A CHEMICAL DEPENDENCY/SUBSTANCEABUSE PROGRAM, SOME INFORMATION MAY BE OMITTED. This clinical summary was aggregated from multiple sources. Caution should be exercised in using it in the provision of clinical care. This summary normalizes information from multiple sources, and as a consequence, information in this document may materially change the coding, format and clinical context of patient data. In addition, data may be omitted in some cases. CLINICAL DECISIONS SHOULD BE BASED ON THE PRIMARY CLINICAL RECORDS. [employer] [facility]. provides no warranty or guarantee of the accuracy or completeness of information in this document.
== END | disposition home or self-care (01) ==
PROVIDERS: PCP Student in an Organized Health Care Education/Training Program; Referring Provider Psychiatry & Neurology Neurology; Visit Provider Psychiatry & Neurology Neurology
DX: R40.4 Transient alteration of awareness (principal)
CPT/HCPCS: 70553; A9575

== ENCOUNTER → 2025-02-16 | Outpatient (CLI) | payer OTHER, SELFPAY ==
[2025-02-16 17:03] LABS: Vitamin B12 1890 pg/mL (180-914)
[2025-02-19 11:08] LABS: Chlamydia By Nucleic Acid AMP Negative (Negative); Gonococcus By Nucleic Acid AMP Negative (Negative)
== END | disposition home or self-care (01) ==
LOC: LAB 14:58
PROVIDERS: PCP Student in an Organized Health Care Education/Training Program; Referring Provider Nurse Practitioner Family; Visit Provider Nurse Practitioner Family
DX: N93.9 Abnormal uterine and vaginal bleeding, unspecified (principal); Z13.29 Encounter for screening for other suspected endocrine disorder; R79.89 Other specified abnormal findings of blood chemistry; R10.2 Pelvic and perineal pain; N89.8 Other specified noninflammatory disorders of vagina
CPT/HCPCS: 36415; 82607; 84439; 84443; 87070; 87205; 87491; 87591

== ENCOUNTER → 2025-02-21 | Outpatient (CLI) | payer OTHER, SELFPAY ==
--- NOTE | 2025-02-21 14:15 | US_ITS ---
PROCEDURE: PELVIC W/ TRANSVAGINAL 02/21/2025 REASON FOR EXAM: PELVIC PAIN TECHNIQUE: PELVIC W/ TRANSVAGINAL COMPARISON: None. FINDINGS: Measurements: Uterus: 8.1 x 4.1 x 4.6 cm for volume of 81.3 mL Endometrial Thickness: 1.0 cm Right Ovary: 3.6 x 1.4 x 2.0 cm for volume of 5.3 mL Left Ovary: 3.3 x 2.8 x 2.4 cm for volume of 11.7 mL Uterus: Anteverted. Normal contour and myometrial echotexture. Endometrium: Normal echotexture. Right ovary: Normal size and echotexture. Left ovary: Multiple follicles, at least 10 on a single image. There is a lesion containing anechoic spaces in the left ovary with peripheral vascularity identified by the technologist measuring 1.7 x 1.3 x 1.7 cm, favored to represent multiple tiny follicles or corpus luteum. Cul-de-sac: Small volume pelvic free fluid. Color Doppler: Normal color flow doppler signal at both ovaries. US/Pelvic w/ Transvaginal IMPRESSION: 1. Polycystic morphology of the left ovary, correlate for clinical evidence of PCOS. 2. Small volume of pelvic free fluid is likely physiologic. Reading Location: [place]
== END | disposition home or self-care (01) ==
LOC: US 14:13
PROVIDERS: PCP Student in an Organized Health Care Education/Training Program; Referring Provider Nurse Practitioner Family; Visit Provider Nurse Practitioner Family
DX: R10.2 Pelvic and perineal pain (principal)
CPT/HCPCS: 76830; 76856

== ENCOUNTER → 2025-03-04 | Outpatient (CLI) | payer OTHER, SELFPAY ==
[2025-03-04 16:39] LABS: Follicle Stimulating Hormone 7.9 mIU/mL
[2025-03-08 12:08] LABS: PROLACTIN 20.4 ng/mL (4.8-33.4)
== END | disposition home or self-care (01) ==
PROVIDERS: PCP Student in an Organized Health Care Education/Training Program; Referring Provider Nurse Practitioner Family; Visit Provider Nurse Practitioner Family
DX: E28.2 Polycystic ovarian syndrome (principal)
CPT/HCPCS: 36415; 82627; 83001; 83002; 83036; 84146; 84402; 82626

== ENCOUNTER 2025-04-15 20:39 | Emergency (ER) | payer OTHER, SELFPAY ==
[2025-04-15 20:39] VITALS: BP 131/78; PULSE 60; RESP 18; TEMP 36.8; O2SAT 99; BMI 23.8
--- NOTE | 2025-04-15 22:21 | EX.ED.GENINJ ---
HPI History of Present Illness Chief Complaint: Bite Detail of Chief Complaint: Cat bite thenar and hypothenar eminence right hand Informant: patient Onset/Context/Timing Onset: Hours Mechanism/Context: other (Cat bite right hand) Location of pain/injuries: Right foot Quality of Pain: - (Not applicable) Location: [place] right hand is previously described Current Severity: Not applicable Maximum Severity: Pain from the bite Worsened by: Apparently cat was ill and may have been bitten by a raccoon Relieved by: Nothing Associated Symptoms Associated Symptoms: Negative for Parasthesias, Weakness, Loss of function, Inability to ambulate, Loss of consciousness or Amnesia Narrative Narrative: Patient is a 24-year-old female. She presents from veterinary office because she was bit by a cat. Initially I was unaware that the cat was being euthanized because there was concern the cat had rabies. When asked if the cat belonged to her she informing that it was a clients cat. She had her uniform on. I presumed that the cat was vaccinated. After nurse gave the patient the medication I initially ordered she asked when she would receive her rabies shot. After further questioning it was determined that the cat apparently had been an outdoor cat. The vaccination history of the cat was unknown. The cat apparently was bitten by a raccoon. The cat was doing very poorly and was euthanized. The brain was sent to [facility] to test for rabies. Tetanus Immunization: Unknown Prior similar symptoms: No Recent Illness/Hospitalization: No [facility] Medical History Blepharitis of right upper eyelid Acute pharyngitis, unspecified Urinary tract infection with hematuria Elevated lipoprotein A level Home Medications ?Medication ?Instructions ?Recorded ?Last Taken ?Type ascorbate calcium (vitamin C) 500 500 mg PO QDAY 03/03/25 Unknown History mg tablet biotin 5 mg capsule 5 mg PO QDAY 03/03/25 Unknown History cholecalciferol (vitamin D3) 250 250 mcg PO QDAY 03/03/25 Unknown History mcg (10,000 unit) capsule amoxicillin 875 mg-potassium 875 mg PO Q12H #8 TABLETS 04/15/25 Unknown Rx clavulanate 125 mg tablet Allergy/AdvReac Type Severity Reaction Status Date / Time No Known Allergies Allergy Verified 04/15/25 20:40 Family History Uncle CAD (coronary artery disease) Myocardial infarction, Onset Age: 53 Social History adopted: No household members: family number of children: 0 current occupational status: unemployed and student 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 sexually active: Yes Smoking Status: Former smoker alcohol intake: former substance use type: does not use caffeine: Yes Type: coffee eating out: rarely or never during the past year weight has: other details: flucuating 5lbs what type of physical activity do you participate in: running and weight training frequency: 5-6 times per week pedro/taoist: Judaism seatbelt use: always do you feel safe at home: Yes additional social history: Boyfriend- Edwin. Supervisor Dried Yeast ROS ROS ED Constitutional Constitutional ED: Denies chills, fever(s), subjective, sweats or weight loss Musculoskeletal Musculoskeletal: Denies arthralgias or myalgias Integumentary Reports other Details: Puncture wounds thenar and hypothenar eminence right hand ; Denies rash Neurologic Neurologic: Denies paresthesias or weakness Hematologic/Lymphatic Hematologic/Lymphatic: Denies easy bruising EXAM Physical Exam Const Vital Signs: 04/15/25 20:39 04/15/25 22:39 Temperature 98.2 F 98 F Temperature Source Temporal Pulse Rate 60 55 L Respiratory Rate 18 16 Blood Pressure 131/78 H 119/80 Blood Pressure Mean 95 93 Pulse Ox 99 100 Oxygen Delivery Method Room Air Positive well nourished and well developed General Appearance ED: well developed and NAD HEENT atraumatic Eyes PERRL and EOMs intact bilaterally Resp normal respiratory effort Cardio regular rhythm and S1 normal heart sound Extremity Negative for normal to inspection Extremity Narrative: Cat bite over the thenar and hypothenar eminence of the right hand. There is no Insa infection i.e. erythema, warmth, induration, fluctuance lymphangitis. Neuro oriented x3, CN's II-XII intact bilaterally and moves all extremities Neuro Narrative: Median, radial and ulnar nerve function intact. Psych thought process normal Skin Skin Narrative: Puncture wound due to cat bite PROC Procedures Other Procedures Procedure(s): Rabies immunoglobulin injection half infiltrated in the superficial radial nerve distribution and the second shot which was the remaining half in the ulnar nerve distribution since the bites were the thenar and hypothenar eminence. Patient tolerated procedure. MDM MDM MDM Narrative Medical decision making narrative: Since her tetanus is unknown she was updated. She received Augmentin. In light of the concern that the cat had rabies she will receive rabies immunoglobulin and rabies vaccine. Discharge Plan Triage Chief Complaint: Bite ED Provider: Pola Graff Dx/Rx/DC Orders Clinical Impression: Cat bite of multiple sites of right hand and wrist, Contact with and (suspected) exposure to rabies Instructions: ED Cat Bite Prescriptions: New amoxicillin-pot clavulanate 875-125 mg tablet 875 mg PO Q12H Qty: 8 0RF No Action ascorbate calcium (vitamin C) 500 mg tablet 500 mg PO QDAY cholecalciferol (vitamin D3) 250 mcg (10,000 unit) capsule 250 mcg PO QDAY biotin 5 mg capsule 5 mg PO QDAY Primary Care Provider: Kitty Siddiqui Referrals: Kitty Siddiqui, DO [Primary Care Provider] - As Needed Print Language: R[place] Disposition Disposition: Home, Self Care
--- OUTSIDE RECORDS SUMMARY | 2025-04-15 22:21 | XMS RPT_ITS | CCD ---
Author Organization [facility] Care Team Providers Care Watershed Manager Name Role Phone Rosa Ocampo LPN N Unavailable Rosa Ocampo LPN N Unavailable [place] SUPPORT TEACHER, SUPPORT TEACHER-C Alia Primary Care Provider [place] SUPPORT TEACHER, SUPPORT TEACHER-C Alia Referring Provider [phone] Yuriy SUPPORT TEACHER, SUPPORT TEACHER-C Laura Attending Provider [place] SUPPORT TEACHER, SUPPORT TEACHER-C Alia Primary Care Provider [place] SUPPORT TEACHER, SUPPORT TEACHER-C Alia Referring Provider [phone] Yuriy SUPPORT TEACHER, SUPPORT TEACHER-C Laura Attending Provider Dr. Murali Bartlett Attending Provider Care Physician, No Primary Primary Care Provider Unavailable Care Physician, No Primary Referring Provider Un available CHARBEL Groves Attending Provider KITTY SIDDIQUI DO Primary Care Physician KITTY SIDDIQUI DO Primary Care Unavailable KITTY SIDDIQUI DO Attending Unavailable VIRIDIANA FAUSTIN MD Attending Unavailable KITTY SIDDIQUI DO Primary Care Unavailable Dr. Viridiana Faustin MD Attending Provider Unavailab Dr. Viridiana Mcmullen MD Referring Provider Unavailab Dr. Kitty Arreaga DO Primary Care Provider [phone] Dr. Kitty Siddiqui DO Referring Provider Tayla Jacobs Attending Provider Tayla Jacobs Referring Provider [phone] Care Physician, No Primary Referring Unava ilable Care Physician, No Primary Primary Care Unava ilable Eric Groves Attending Unavailable Dilillianaey, Kitty M Referring Unavailable Ditchey, Kitty M Primary Care Unavailable Tayla Multani Attending Unavailable Tayla Multani Attending Unavailable Kayaey, Kitty M Primary Care Unavailable Tayla Multani Referring Unavailable Ditchey, Kitty M Primary Care Unavailable Tayla Multani Attending Unavailable Tayla Multani Referring Unavailable Care Physician, No Primary Primary Care Unava ilable Candace BARGER, Maude Cha Referring Unavail able Candace PA, Maude Cha Attending Unavail able Care Physician, No Primary Primary Care Unava ilable Georges BARGER, Panda Referring Unavailable Georges BARGER, Panda Attending Unavailable Kitty Siddiqui M Primary Care Unavailable Viridiana Faustin Referring Unavailable Viridiana Faustin Attending Unavailable Tayla Multani Attending Unavailable Ditchey, Kitty M Primary Care Unavailable Tayla Multani Referring Unavailable Tayla Multani Attending Unavailable Kayaey, Kitty M Referring Unavailable Ditchey, Kitty M Primary Care Unavailable Care Physician, No Primary Referring Unava ilable Care Physician, No Primary Primary Care Unava ilable Georges BARGER, Panda Attending Unavailable VIRIDIANA FAUSTIN MD Attending Unavailable YUMIKO MCKINNON, KITTY M Primary Care Unavailable Medications Current Medications Medication Drug Class(es) Dates Sig (Normalized) Sig (Original) ashwagandha 450 mg oral capsule (3 sources) Start: 08-02-2024 take 1 capsule by mouth once ashwagandha 450 mg oral capsule 450 mg Dose = 1 cap(s), Oral, Once, 0 Refill(s) Start Date: 08/02/24 Status: Ordered Repeat number: 1 biotin 5 mg oral capsule (5 sources) Start: 03-03-2025 take 1 capsule by mouth once daily Biotin 5 mg capsule Active 5 mg PO daily March 03, 2025 12:00am Start: 08-02-2024 biotin 300 mcg oral tablet Dose : 600 mcg = 2 tab(s), Oral, qDay, # 60 tab(s), 0 Refill(s) Start Date: 08/02/24 Status: Ordered Quantity: 60.0 Unit: tab(s) Repeat number: 1 calcium ascorbate 500 mg oral tablet (2 sources) Start: 03-03-2025 take 1 tablet by mouth once daily Ascorbate Calcium (Vitamin C) 500 mg tablet Active 500 mg PO daily March 03, 2025 12:00am cholecalciferol 0.25 mg oral capsule (2 sources) Vitamin D Start: 03-03-2025 take 1 capsule by mouth once daily Cholecalciferol (Vitamin D3) 250 mcg (10,000 unit) capsule Active 250 ug PO daily March 03, 2025 12:00am Durham (Nk) (3 sources) Start: 02-16-2025 [place] (Nk) A ctive February 16, 2025 12:00am Vitamin B12 50 mcg oral tablet (3 sources) Start: 08-02-2024 Vitamin B12 50 mcg oral tablet Dose : 100 mcg = 2 tab(s), Oral, Daily, 0 Refill(s) Start Date: 08/02/24 Status: Ordered Repeat number: 1 Vitamin C 250 mg oral tablet (3 sources) Start: 08-02-2024 Vitamin C 250 mg oral tablet Dose : 250 mg = 1 tab(s), Oral, qDay, Take with food, # 30 tab(s), 0 Refill(s) Start Date: 08/02/24 Status: Ordered Quantity: 30.0 Unit: tab(s) Repeat number: 1 Vitamin D3 (3 sources) Start: 08-02-2024 Vitamin D3 Dos e : 10 mcg = 1 tab(s), Oral, Daily, 0 Refill(s) Start Date: 08/02/24 Status: Ordered Repeat number: 1 Completed/Discontinued Medications Medication Drug Class(es) Dates Sig (Normalized) Sig (Original) amoxicillin 500 mg oral capsule (6 sources) Penicillin-class Antibacterial Start: 09-27-2023 End: 10-02-2023 take 1 capsule by mouth every eight hours Amoxicillin 500 mg capsule Discontinued 500 mg PO Q8H 15 5 0 September 27, 2023 1:00am October 01, 2023 1:00am October 02, 2023 1:05am amoxicillin 875 mg / clavulanate 125 mg oral tablet (17 sources) Penicillin-class Antibacterial Start: 08-28-2022 End: 09-07-2022 Amoxicillin-Pot Clavulanate 875-125 mg tablet Discontinued 1 {tbl} PO Q12H 20 10 0 August 28, 2022 1:00am September 06, 2022 1:00am September 07, 2022 1:12am Acute sinusitis, unspecified Start: 08-27-2019 End: 09-06-2019 Amoxicillin-Pot Clavulanate (Augmentin) 875-125 mg tablet Discontinued 1 {tbl} PO Q12H 20 10 0 August 27, 2019 1:00am September 05, 2019 1:00am September 06, 2019 1:08am Acute sinusitis, unspecified azithromycin 250 mg oral tablet (6 sources) Macrolide Antimicrobial Start: 08-03-2024 End: 02-16-2025 Azithromycin 250 mg tablet Discontinued 0 PO .COMPLEX 6 0 August 03, 2024 1:00am February 16, 2025 1:51pm For 250 mg dose pack: take 500 mg today (day 1), then 250 mg for 4 days (days 2-5) PO; START ON 08/06/24 ONLY IF NO IMPROVEMENT Levonorgestrel-Ethi nyl Estrad (20 sources) Progestin, Estrogen, Progestin-containing Intrauterine Device Start: 04-17-2022 End: 02-19-2024 take 1 tablet by mouth once daily Levonorgestrel-Eth inyl Estrad (Altavera (28)) 0.15-0.03 mg tablet Discontinued 1 {tbl} PO DAILY 84 April 17, 2022 12:00am February 19, 2024 3:13pm active pills for continuous cycling Start: 04-17-2022 Levonorgestrel -Ethinyl Estrad (Altavera (28)) 0.15-0.03 mg tablet Active 1 TABLET PO DAILY 84 April 16, 2022 11:00pm Start: 11-07-2021 End: 04-17-2022 take 1 tablet by mouth once daily Levonorgestrel-Ethinyl Estrad (Aviane) 0.1-20 mg-mcg tablet Discontinued 1 {tbl} PO daily 84 4 November 07, 2021 2:59pm April 17, 2022 1:10pm Start: 10-24-2021 End: 11-07-2021 take 1 tablet by mouth once daily Levonorgestrel-Ethinyl Estrad (Aviane) 0.1-20 mg-mcg tablet Discontinued 1 {tbl} PO daily 84 0 October 24, 2021 2:18pm November 07, 2021 2:59pm Start: 10-24-2021 End: 11-07-2021 take 1 tablet [...] Estrad (Aviane) 0.1-20 mg-mcg tablet Discontinued 1 {tbl} PO daily 84 August 28, 2020 4:36pm October 24, 2021 2:18pm Start: 08-28-2020 End: 10-24-2021 take 1 tablet [...] Estrad (Aviane) 0.1-20 mg-mcg tablet Discontinued 1 {tbl} PO daily 29 11May 29, 2020 12:00am August 28, 2020 4:37pm Start: 05-29-2020 End: 08-28-2020 take 1 tablet by mouth once daily Levonorgestrel-Ethinyl Estrad (Aviane) 0.1-20 mg-mcg tablet Discontinued 1 TABLET PO daily May 28, 2020 11:00pm August 28, 2020 3:37pm nitrofurantoin, macrocrystals 25 mg / nitrofurantoin, monohydrate 75 mg oral capsule (20 sources) Nitrofuran Antibacterial Start: 06-12-2022 End: 06-17-2022 take 1 capsule by mouth every twelve hours at mealtime Nitrofurantoin Monohyd/M-Cryst (Macrobid) 100 mg capsule Discontinued 100 mg PO Q12H 10 5 0 June 12, 2022 1:00am June 16, 2022 1:00am June 17, 2022 1:04am must administer with a meal/food Start: 06-13-2020 End: 06-20-2020 take 1 capsule by mouth every twelve hours at mealtime Nitrofurantoin Monohyd/M-Cryst 100 mg capsule Discontinued 1 NMA PO Q12H 14 7 0 June 13, 2020 1:00am June 19, 2020 1:00am June 20, 2020 1:03am administer with a meal/food; swallow whole; do not open, crush, dissolve , or chew oseltamivir 75 mg oral capsule (11 sources) Neuraminidase Inhibitor Start: 09-03-2017 End: 09-08-2017 take 1 capsule by mouth twice daily Oseltamivir (Tamiflu) 75 mg capsule Discontinued 75 mg PO TWICE A DAY 10 5 0 September 03, 2017 1:00am September 07, 2017 1:00am September 08, 2017 1:06am phenazopyridine hydrochloride 100 mg oral tablet (11 sources) Start: 06-13-2020 End: 08-28-2020 take 1 tablet by mouth three times daily at mealtime for pain Phenazopyridine (Pyridium) 100 mg tablet Discontinued 100 mg PO THREE TIMES A DAY as needed for pain 7 0 0 June 13, 2020 1:00am August 28, 2020 4:18pm administer with a full glass of water after each meal sulfamethoxazole 800 mg / trimethoprim 160 mg oral tablet (11 sources) Dihydrofolate Reductase Inhibitor Antibacterial, Sulfonamide Antimicrobial Start: 12-10-2017 End: 08-27-2019 Sulfamethoxazole-Tr imethoprim 800-160 mg tablet Discontinued 1 {tbl} PO TWICE A DAY December 10, 2017 12:00am August 27, 2019 2:51pm Start: 12-10-2017 End: 08-27-2019 take 1 tablet by mouth twice daily Sulfamethoxazole-Trimethoprim Discontinu ed 1 TABLET PO TWICE A DAY December 09, 2017 11:00pm August 27, 2019 1:51pm Problems Active Problems Problem Classification Problem Date Documented Date Episodic/Chronic Abdominal pain (9 sources) Pain in pelvis; Translations: [Pelvic and perineal pain] Onset: 02-25-2025 02-16-2025 Episodic Cardiac dysrhythmias (18 sources) Tachycardia; Translations: [Tachycardia, unspecified] 05-15-2022 Episodic Conditions associated with dizziness or vertigo (5 sources) Lightheadedness; Translations: [Dizziness and giddiness] Onset: 02-15-2025 10-28-2024 Episodic Disorders of lipid metabolism (13 sources) Hyperlipoproteinemia; 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 Immunizations and screening for infectious disease (11 sources) Contact with and (suspected) exposure to infections with a predominantly sexual mode of transmission; Translations: [Contact with or exposure to venereal diseases] Episodic Inflammation; infection of eye (except that caused by tuberculosis or sexually transmitteddisease) (6 sources) Blepharitis of right upper eyelid; Translations: [Unspecified blepharitis right upper eyelid] 08-03-2024 Episodic Menstrual disorders (16 sources) Menometrorrhagia; Translations: [Excessive and frequent menstruation with irregular cycle] Chronic Nonspecific chest pain (12 sources) Chest pain; Translations: [Chest pain, unspecified] Episodic Other endocrine disorders (2 sources) Polycystic ovary syndrome; Translations: [Polycystic ovarian syndrome] 03-03-2025 Chronic Other endocrine disorders (1 source) Polycystic ovarian syndrome; Translations: [Polycystic ovarian syndrome] Onset: 03-14-2025 Chronic Other female genital disorders (8 sources) Abnormal uterine bleeding; Translations: [Abnormal uterine and vaginal bleeding, unspecified] 02-16-2025 Chronic Other female genital disorders (1 source) Abnormal uterine and vaginal bleeding, unspecified; Translations: [Abnormal uterine and vaginal bleeding, unspecified] Onset: 02-21-2025 Chronic Other female genital disorders (8 sources) Vaginal discharge; Translations: [Other specified noninflammatory disorders of vagina] 02-16-2025 Episodic Other female genital disorders (1 source) Other specified noninflammatory disorders of vagina; Translations: [Other specified noninflammatory disorders of vagina] Onset: 02-16-2025 Episodic Other nervous system disorders (2 sources) Impaired cognition 10-28-2024 Episodic Other screening for suspected conditions (not mental disorders or infectious disease) (8 sources) Increased vitamin B; Translations: [Other specified abnormal findings of blood chemistry] 02-16-2025 Episodic Other upper respiratory infections (14 sources) Upper respiratory infection; Translations: [Acute upper respiratory infection, unspecified] Onset: 04-08-2017 04-08-2017 Episodic Otitis media and related conditions (6 sources) Acute right otitis media; Translations: [Otitis media, unspecified, right ear] 08-28-2022 Episodic Residual codes; unclassified (1 source) Transient alteration of awareness; Translations: [Transient alteration of awareness] Onset: 02-03-2025 Episodic Syncope (3 sources) Near syncope; Translations: [Syncope and collapse] Onset: 02-15-2025 10-28-2024 Episodic Urinary tract infections (12 sources) Urinary tract infectious disease; Translations: [Urinary tract infection, site not specified] Episodic Past or Other Problems Problem Classification Problem Date Documented Da te Episodic/Chronic Malaise and fatigue (7 sources) Fatigue; Translations: [Other fatigue] Onset: 07-23-2024 06-24-2024 Episodic Other ear and sense organ disorders (2 sources) Otalgia, unspecified ear; Translations: [Otalgia, unspecified ear] Onset: 04-08-2017 04-08-2017 Episodic Results Test Name Value Interpretation Reference Range Facility DHEA Sulfateon 03-08-2025 DHEA SULFATE 116.0 ug/dL Normal 110.0-431.7 [facility] Comment on above: Order Comment: N Performed By: #### L 501.8207, L3300.1500, L3400.4800, L3100.5055, L3100.5400 ####[facility] [address] [place], [place], [id number] prolactin 4465on 03-08-2025 PROLACTIN 20.4 ng/mL Normal 4.8-33.4 [facility] Comment on above: Performed By: #### L 501.9985, L3300.1500, L3400.4800, L3100.5055, L3100.5400 ####[facility] [address] [place], [address] Testosterone Freeon 03-08-20 25 TESTOSTER FREE 0.3 pg/mL Normal 0.0-4.2 [facility] Comment on above: Result Comment: Perf ormed at: - [facility] [id number] Stringing Machine Tender: Clayton Bashir PhD, Phone: [phone] Performed at: [facility] [id number] Stringing Machine Tender: Payton Amezquita MD, Phone: [phone] Performed By: #### L 501.9985, L3300.1500, L3400.4800, L3100.5055, L3100.5400 ####[facility] [address] [place], [address] FSH and LHon 03-04-2025 FSH 7.9 mIU/mL Normal [facility] Comment on above: Result Comment: FEMA LE: Follicular: 1.4 - 18.1 mIU/mL Midcycle: 3.4 - 33.4 mIU/mL Luteal: 1.5 - 9.1 mIU/mL Post Menopause: 23.0 - 116.3 mIU/mL MALE: 1.4 - 18.1 mIU/mL Performed By: #### L 501.9985, L3300.1500, L3400.4800, L3100.5055, L3100.5400 ####[facility] [address] [place], [address] LH 5.5 mIU/mL Normal [facility] Comment on above: Result Comment: FEMA LE: Follicular: 1.9-12.5 mIU/mL Midcycle: 8.7-76.3 mIU/mL Luteal: 0.5-16.9 mIU/mL Post Menopause: 15.9-54.0 mIU/mL MALE: 20-70 Years: 1.5-9.3 mIU/mL >70 Years: 3.1-34.6 mIU/mL Performed By: #### L 501.9985, L3300.1500, L3400.4800, L3100.5055, L3100.5400 ####[facility] [address] [place], [address] Hemoglobin A1con 03-04-2025 HbA1c (Bld) [Mass fraction] 5.5 % Normal <=5.6 [facility] Comment on above: Result Comment: Norm al < 5.7 % Prediabetic 5.7 - 6.4 % Diabetic >or= 6.5 % Please note range changes. Performed By: #### L 501.9985, L3300.1500, L3400.4800, L3100.5055, L3100.5400 ####[facility] [address] [place], [place], [id number] Hemoglobin A1c percentageOrd ered By: Tayla Multani on 03-04-2025 HbA1c (Bld) [Mass fraction] 5.5 % <5.7 [facility] Comment on above: Normal < 5.7 % Predi abetic 5.7 - 6.4 % Diabetic >or= 6.5 % Please note range changes. LH ser/plasOrdered By: Gi Multani on 03-04-2025 Lutropin Qn 5.5 m[IU]/mL [facility] Comment on above: FEMALE:Follicular: 1 .9-12.5 mIU/mLMidcycle: 8.7-76.3 mIU/mLLuteal: 0.5-16.9 mIU/mLPost Menopause: 15.9-54.0 mIU/mLMALE:20-70 Years: 1.5-9.3 mIU/mL>70 Years: 3.1-34.6 mIU/mL Serum or plasma free testost erone measurement (mass/volume)Ordered By: Tayla Multani on 03-04-2025 Testosterone Free [Mass/Vol] 0.3 pg/mL 0.0-4.2 [facility] Comment on above: Performed at: - [address] [id number] Director: Clayton Bashir PhD, Phone: [phone] at: - [facility] [address] [id number] Director: Payton Amezquita MD, Phone: [phone] Serum or plasma prolactin me asurement (mass/volume)Ordered By: Tayla Multani on 03-04-2025 Prolactin [Mass/Vol] 20.4 ng/mL 4.8-33.4 [facility] Contact Representative Office Visit Reporton 03-03-2025 Contact Representative Office Visit Report [facility] [address], [address] [place] [address] OFFICE VISIT Date of Service: 03/03/25 MR#: [id number] Acct: [id number] Name: PRISCILLA WALTERS Rep #: [id number] : 2000 Provider: ERIK Lambert Age/Sex: 24/F [place] 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 Is patient in pain?: No Allergies No Known Allergies Allergy (Verified 03/03/25 14:29) Medications ???Medication ???Instructions ???Recorded ???Confirmed ???Type ascorbate calcium (vitamin C) 500 500 mg PO QDAY 03/03/25 03/03/25 History mg tablet biotin 5 mg capsule 5 mg PO QDAY 03/03/25 03/03/25 His tory cholecalciferol (vitamin D3) 250 250 mcg PO QDAY 03/03/25 03/03/25 History mcg (10,000 unit) capsule Is last menstrual period known: Yes Last Menstrual Period: 02/23/25 Post menopausal: No Patient : No : No Control Method: condoms PFSH Medical History Blepharitis of right upper eyelid Acute pharyngitis, unspecified Urinary tract infection with hematuria Elevated lipoprotein A level Family History Uncle CAD (coronary artery disease) Myocardial infarction, Onset Age: 53 Social History adopted: No household members: family number of children: 0 current occupational status: unemployed and student 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 sexually active: Yes Smoking Status: Former smoker alcohol intake: former substance use type: does not use caffeine: Yes Type: coffee eating out: rarely or never during the past year weight has: other details: flucuating 5lbs what type of physical activity do you participate in: running and weight training frequency: 5-6 times per week pedro/bahai: [employer] seatbelt use: always do you feel safe at home: Yes additional social history: Boyfriend- Edwin. Screening Technician [facility] US F/U DISCUSS BC Details: PRISCILLA WALTERS is a 24 year old who presents for follow up after having ultrasound completed. Results showing multiple follicles to left ovary; otherwise stable. Baseline labs/thyroid checked and negative; vitamin B 12 elevated--was to follow up with PCP for this. Reports she notices facial hair and thinning of scalp--has dealt with this since she was little however. Periods have been regular; she is not skipping periods. Was previously on OCP and had a hard time with this due to weight gain. Female Reproductive History Last Menstrual Period: 02/23/25 Cycle Length: 21-35 Questions: metrorrhagia: No, sexually active: Yes (condoms), dyspareunia: No and PCB: No History 0 Elective abortions Hx Para Spontaneous abortions Hx # Term Pregnancies Ectopic pregnancies Hx # Pregnancies Multiple births # of living children ROS Const Constitutional: Reports system reviewed and no additional complaints, except as documented Cardio Card: Denies chest pain at rest or palpitations Resp Resp: Denies cough or dyspnea GI GI: Reports system reviewed and no additional complaints, except as documented : Reports system reviewed and no additional complaints, except as documented Skin Skin/Breast: Reports system reviewed and no additional complaints, except as documented and hirsutism Psych Psych: Reports system reviewed and no additional complaints, except as documented Exam Const General: cooperative, healthy appearing, comfortable, no acute distress, well groomed and well hydrated Nutritional Appearance: well nourished Orientation: alert, awake and oriented x3 Resp Effort Inspection: normal respiratory effort, able to speak in complete sentences and symmetric chest movement Neuro General: patient alert, patient awake, patient oriented x3 and moves all extremities Psych Appearance: grossly normal Mental Status: mental status grossly normal Affect: normal affect Speech and Movement: speech and movement normal Attitude: cooperative Coding Level of Care Code Established Pt Off vis,est,level 3 Patient Type Established Diagnoses PCOS (polycystic ovarian syndrome) E28.2 Assessment and Plan Assessment and Plan (1) PCOS (polycystic ovarian syndrome): Status: Acute Plan: Further eval with labwork. Declines OCP today. Final plan with results. Orders: Orders Testosterone Free Today E28.2 - Polycystic ovarian syndrome DHEA Sulfate Today E28.2 - Polycystic ovarian syndrome PROLACTIN Today E28.2 (more content not included)... Normal [facility] Pelvic w/ Transvaginalon Pelvic w/ Transvaginal [facility] [address] [place], [place] [address] Pelvic w/ Transvaginal MR#: [id number] Acct: [id number] Name: PRISCILLA WALTERS Rep #: [id number] : 2000 F 24 From: Gustavo Wren MD PCP: Dr. Kitty Siddiqui, DO Status: REG CLI Study: Pelvic w/ Transvaginal Date of Exam: 02/21/25 Exam# [id number] Ordering Dr: Tayla Multani SUPPORT TEACHER-C PROCEDURE: PELVIC W/ TRANSVAGINAL 02/21/2025 REASON FOR EXAM: PELVIC PAIN TECHNIQUE: PELVIC W/ TRANSVAGINAL COMPARISON: None. FINDINGS: Measurements: Uterus: 8.1 x 4.1 x 4.6 cm for volume of 81.3 mL Endometrial Thickness: 1.0 cm Right Ovary: 3.6 x 1.4 x 2.0 cm for volume of 5.3 mL Left Ovary: 3.3 x 2.8 x 2.4 cm for volume of 11.7 mL Uterus: Anteverted. Normal contour and myometrial echotexture. Endometrium: Normal echotexture. Right ovary: Normal size and echotexture. Left ovary: Multiple follicles, at least 10 on a single image. There is a lesion containing anechoic spaces in the left ovary with peripheral vascularity identified by the technologist measuring 1.7 x 1.3 x 1.7 cm, favored to represent multiple tiny follicles or corpus luteum. Cul-de-sac: Small volume pelvic free fluid. Color Doppler: Normal color flow doppler signal at both ovaries. US/Pelvic w/ Transvaginal IMPRESSION: 1. Polycystic morphology of the left ovary, correlate for clinical evidence of PCOS. 2. Small volume of pelvic free fluid is likely physiologic. Reading Location: [id number] CC: ERIK Multani; Dr. Kitty Siddiqui, Vp & General Counsel: Signed Normal [facility] Chlamydia/GC JERED aptimaon CHLAMY,NUC ACID Negative Normal Negative [facility] Comment on above: Performed By: #### M 100.3200, L7000.1800, #### [facility] [address] [place], [address] GC BY NUC ACID Negative Normal Negative [facility] Comment on above: Result Comment: Perf ormed at: =G - [facility] [id number] Stringing Machine Tender: Tangela Rawls MD, Phone: [phone] Performed By: #### M 100.3200, L7000.1800, #### [facility] [address] [place], [address] Genital Culture Comprehensiv aglina 02-18-2025 VAC Reason for Exam: vaginal discharge Normal vaginal sandeep isolated. No yeast, Gardnerella, Neisseria or beta-hemolytic Streptococcus isolated. Normal [facility] Comment on above: Performed By: #### M 100.3200, L7000.1800, M1 #### [facility] [address] [place], [place], [address] Chlamydia trachomatis rRNA d etection by probe and target amplification methodOrdered By: Tayla Multani on 02-16-2025 C. trachomatis rRNA JERED+probe Ql (Unsp spec) Negative Negative [facility] Genital cultureOrdered By: Ashlee Multani on 02-16-2025 Source specific culture Neisseria or beta-hemolytic Streptococcus isolated. [facility] Gram Stainon 02-16-2025 GS Reason for Exam: vaginal discharge Gram Stain 2+ White Blood Cells 4+ Gram positive rods No Gram negative diplococci Score = 0 Interpretation: 0-3 Normal, 4-6 Intermediate, 7-10 Positive BV Normal [facility] Comment on above: Performed By: #### M 100.3200, L7000.1800, M100.1999 #### [facility] [address] [place], [place], [address] Gram stainOrdered By: Tayla Multani on 02-16-2025 Microscopic observation Gram stain Nom (Unsp spec) [facility] - Chemistry and C hemistry - challengeOrdered By: Tayla Multani on 02-16-2025 Bilirubin Ql (U) Negative [facility] Glucose Ql (U) Negative [facility] Ketones Ql (U) Negative [facility] pH (U) 8 [pH] [facility] Specific gravity (U) [Rel density] 1.030 [facility] Urobilinogen (U) [Mass/Vol] Negative [facility] HCG ( test) Ql (U) Negative [facility] - Hematology and Cell countsOrdered By: Tayla Multani on 02-16-2025 Hemoglobin Ql (U) Negative [facility] - Specimen inform ationOrdered By: Tayla Multani on 02-16-2025 Clarity (U) Clear [facility] Color (U) Yellow [facility] - UrinalysisOrder ed By: Tayla Multani on 02-16-2025 Nitrite Ql (U) Negative [facility] Protein Ql (U) Negative [facility] Neisseria gonorrhoeae nuclei c acid detection by amplified probe techniqueOrdered By: Tayla Multani on 02-16-2025 N. gonorrhoeae DNA JERED+probe Ql (Unsp spec) Negative Negative [facility] Comment on above: Performed at: =[facility] [address] [place] [id number] Director: Tangela Rawls MD, Phone: [phone] No Panel InformationOrdered By: Tayla Multani on 02-16-2025 POC Trichomonas (Rapid) Negative [facility] Urine Leukocytes Negatve [facility] Urine Non-Hemolyzed Blood [facility] Contact Representative Office Visit Reporton 02-16-2025 Contact Representative Office Visit Report [facility] [address], [address] [place] [address] OFFICE VISIT Date of Service: 02/16/25 MR#: [id number] Acct: [id number] Name: PRISCILLA WALTERS Rep #: [id number] : 2000 Provider: ERIK Lambert Age/Sex: 24/F [place] [facility] [place]: Signed Intake Vital Signs 06/24/24 08:24 02/16/25 13:50 Height 5 ft 2 in 5 ft 2 in Weight: 132 lb BMI 24.1 BP 118/78 Intake Visit Reasons: AUB/pelvic pain Pipefitter Required: No Is patient in pain?: No Allergies No Known Allergies Allergy (Verified 02/16/25 13:59) Medications ???Medication ???Instructions ???Recorded ???Confirmed ???Type NK 02/16/25 02/16/25 History Is last menstrual period known: Yes Last Menstrual Period: 01/28/25 Post menopausal: No Patient : No : No Control Method: condoms PFSH Medical History Blepharitis of right upper eyelid Acute pharyngitis, unspecified Urinary tract infection with hematuria Elevated lipoprotein A level Family History Uncle CAD (coronary artery disease) Myocardial infarction, Onset Age: 53 Social History adopted: No household members: family number of children: 0 current occupational status: unemployed and student 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 sexually active: Yes Smoking Status: Former smoker alcohol intake: former substance use type: does not use caffeine: Yes Type: coffee eating out: rarely or never during the past year weight has: other details: flucuating 5lbs what type of physical activity do you participate in: running and weight training frequency: 5-6 times per week pedro/bahai: Ep[employer]opalian seatbelt use: always do you feel safe at home: Yes additional social history: Boyfriend- Edwin. 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 She reports in June she started to notice her menses were starting about 13-16 days after ending; has not counted out menses cycle dates. She has been off her OCP for about 2 years. She has one day with heavy bleeding and then the rest (total of approx 7 days) of spotting. Noticed with her most recent menses she had right lower pelvic pain--has noticed intermittently and with urination. This was new. States she feels it is more prominent with a full bladder. She reports she is currently sexually active. New partner. She reports they are using condoms. She denies concerns for STD's or infection. Denies fever or chills. Female Reproductive History Last Menstrual Period: 01/28/25 Cycle Length: 21-35 Bleeding Duration: 7 Questions: metorrhagia: No, sexually active: Yes (condoms), dyspareunia: Yes and PCB: No History 0 Elective abortions Hx Para Spontaneous abortions Hx # Term Pregnancies Ectopic pregnancies Hx # Pregnancies Multiple births # of living children ROS Const Constitutional: Reports system reviewed and no additional complaints, except as documented Eyes Eyes: Reports system reviewed and no additional complaints, except as documented GI GI: Denies abdominal pain or change in bowel habits : Reports as per HPI Exam Const General: cooperative and no acute distress Orientation: oriented x3 HENMT Head: normal to inspection and normocephalic Eyes General: appearance normal, both eyes and all related structures Neck Neck: normal visual inspection Resp Effort Inspection: normal respiratory effort General: bladder normal to palpation External Female Exam: normal external appearance and normal appearance of the urethra Urethra: normal appearance of the urethra Speculum Exam - Vagina: normal appearance of the vagina, abnormal vaginal discharge (white; pasty to patel), no lesions and No vaginal bleeding Speculum Exam - Cervix: normal appearance of the cervix Bimanual Exam- Vagina Uterus: uterine size normal, bladder normal to palpation, uterine shape normal and non-tender Bimanual Exam- Adnexa, other: other (right pain with bimanual to adnexa. left normal.) OB/External Speculum: No vaginal bleeding Speculum Exam: no vaginal bleeding Neuro Cognition: normal cognition Speech: speech normal Psych Appearance: grossly normal Mood: congruent mood Affect: normal affect Speech and Movement: speech and movement normal Attitude: cooperative Judgment: judgment good Results POC Urine Office , Urine Negative Last Edit by Mena Orozco on 02/16/25 14:23 POC Urinalysis Dip (Clinic) Office Urine Color Yellow Last Edit by Mena Orozco on (more content not included)... Normal [facility] T4 Free Directon 02-16-2025 T4 FREE DIRECT 1.00 ng/dL Normal 0.76-1.46 [facility] Comment on above: Performed By: #### L 503.0106, L506.0400, L501.9520 ####[facility] [id number] [place], [place], [address] T4 freeOrdered By: Tayla oneal on 02-16-2025 Free T4 [Mass/Vol] 1.00 ng/dL 0.76-1.46 [facility] TSH DL <= 0.005 mIU/L QnOrde red By: Tayla Multani on 02-16-2025 TSH Qn 1.370 uIU/mL 0.300-4.200 [facility] Thyroid Stim Hormone (TSH)on 02-16-2025 TSH 1.370 uIU/mL Normal 0.300-4.200 [facility] Comment on above: Performed By: #### L 503.0106, L506.0400, L501.9520 ####[facility] [id number] [place], [place], [address] Vitamin B12on 02-16-2025 Cobalamin (Vitamin B12) [Mass/Vol] 1890 pg/mL High 180-914 [facility] Comment on above: Performed By: #### L 503.0106, L506.0400, L501.9520 ####[facility] [id number] [place], [place], [address] Vitamin B12 ser/plasOrdered By: Tayla Multani on 02-16-2025 Cobalamin (Vitamin B12) [Mass/Vol] 1890 pg/mL High 180-914 [facility] Brain W/WO Contraston 2024 Brain W/WO Contrast [facility] [address] [place], [place] [id number] Brain W/WO Contrast MR#: [id number] Acct: [id number] Name: PRISCILLA WALTERS Rep #: [id number] : 2000 F 24 From: Gentry Haider PCP: Dr. Kitty Siddiqui DO Status: REG CLI Study: Brain W/WO Contrast Date of Exam: 01/31/25 Exam# [id number] Ordering Dr: Viridiana Faustin MD PROCEDURE: BRAIN [...] No significant abnormality is identified. Reading Location: [place] [address] CC: Dr. Viridiana Faustin MD; Dr. Ktity Siddiqui DO Vp & General Counsel: Signed Normal [facility] Magnetic resonance imaging r eportOrdered By: Gentry Guido on 01-31-2025 Study report [facility] [address] [place], [place] [address] Brain W/WO Contrast MR#: [id number] Acct: [id number] Name: PRISCILLA WALTERS Rep #: [id number] : 2000 F 24 From: Alan Guido MD PCP: Dr. Kitty Siddiqui DO Status: REG CLI Study:Brain W/WO Contrast Date of Exam: 01/31/25 Exam# [id number] Ordering Dr: Bernardo Faustin MD PROCEDURE: BRAIN W/WO CONTRAST 01/31/2025 [...] No significant abnormality is identified. Reading Location: [place] [address] CC: Dr. Viridiana Faustin MD; Dr. Kitty Siddiqui DO ~ Vp & General Counsel: Signed [facility] 01-16-2025 Methylmalonic Acid 161 nmol/L Normal 0-378 [facility] Comment on above: Result Comment: This test was developed and its performance characteristics determined by [facility]. It has not been cleared or approved by the Food and Drug Administration. Performed At: [address] [id number] Alirio Cain MD Ph:[phone] Performed By: #### G FR, CMP, ANEU, A1C, ADIFF, LIPID, TSH, CBC #### [facility] [address] [place], [place] [address] [place] 01-12-2025 Lyme Total Antibody JAD Negative Normal Negative [facility] Comment on above: Result Comment: Lyme antibodies not detected. Reflex testing is not indicated. No laboratory evidence of infection with B. burgdorferi (Lyme disease). Negative results may occur in patients recently infected (less than or equal to 14 days) with B. burgdorferi. If recent infection is suspected, repeat testing on a new sample collected in 7 to 14 days is recommended. Performed At: [facility] [id number] Krysten Arnold PhD Ph:[phone] Performed By: #### G FR, CMP, ANEU, A1C, ADIFF, LIPID, TSH, CBC #### [address] [address] .GFRon 01-11-2025 Estimated Glomerular Filtration Rate 74 ml/min/1.73sqm Normal [facility] Comment on above: Result Comment: Stages of [...] ANEU, A1C, ADIFF, LIPID, TSH, CBC #### [address] [address] B12on 01-11-2025 Vitamin B12 Lvl >2000 High 211-911 [facility] Comment on above: Performed By: #### G FR, CMP, ANEU, A1C, ADIFF, LIPID, TSH, CBC #### [address] [address] BMPon 01-11-2025 BUN/Creatinine Ratio 16 ratio Normal 7- [facility] Comment on above: Performed By: #### F T4, TSH, 675818, GFR, 636832, BMP #### [address] [address] #### B12 #### [facility] [address] [place] [address] Calcium [Mass/Vol] 9.4 mg/dL Normal 8.4-10.2 [facility] Comment on above: Performed By: #### F T4, TSH, 247409, GFR, 345069, BMP #### [place] [address] #### B12 #### [place] [address] Chloride [Moles/Vol] 104 mmol/L Normal 98-107 [facility] Comment on above: Performed By: #### F T4, TSH, 052669, GFR, 295856, BMP #### [place] [address] #### B12 #### [place] [address] CO2 [Moles/Vol] 29 mmol/L Normal 22-29 [facility] Comment on above: Performed By: #### F T4, TSH, 950800, GFR, 564458, BMP #### [place] [address] #### B12 #### [place] [address] Creatinine [Mass/Vol] 1.09 mg/dL High 0.51-0.95 [facility] Comment on above: Performed By: #### F T4, TSH, 148156, GFR, 406803, BMP #### [place] [address] #### B12 #### [place] [address] Electrolyte Balance 8.0 mEq/L Normal 4.0-15.0 [facility] Comment on above: Performed By: #### F T4, TSH, 416071, GFR, 707761, BMP #### [place] [address] #### B12 #### [place] [address] Glucose [Mass/Vol] 96 mg/dL Normal 70-105 [facility] Comment on above: Performed By: #### F T4, TSH, 391572, GFR, 254081, BMP #### [place] [address] #### B12 #### [place] [address] Potassium [Moles/Vol] 4.5 mmol/L Normal 3.5-5.1 [facility] Comment on above: Performed By: #### F T4, TSH, 765093, GFR, 787127, BMP #### [place] [address] #### B12 #### [place] [address] Sodium [Moles/Vol] 141 mmol/L Normal 136-145 [facility] Comment on above: Performed By: #### F T4, TSH, 612371, GFR, 613451, BMP #### [place] [address] #### B12 #### [place] [address] Urea nitrogen [Mass/Vol] 17 mg/dL Normal 7-18 [facility] Comment on above: Performed By: #### F T4, TSH, 081937, GFR, 723663, BMP #### [place] [address] #### B12 #### [place] [address] FT4on 01-11-2025 Free T4 [Mass/Vol] 0.67 ng/dL Low 0.76-1.46 [facility] Comment on above: Performed By: #### G FR, CMP, ANEU, A1C, ADIFF, LIPID, TSH, CBC #### [place] [address] LABORATORYOrdered By: SYSTEM SYSTEM on 01-11-2025 Calcium [...] 01-11-2025 TSH Qn 2.13 m[IU]/L Normal 0.36-3.74 [facility] Comment on above: Performed By: #### F T4, TSH, 038959, GFR, 546801, BMP #### [address] [address] #### B12 #### [facility] [address] [place] [address] .Auto Diffon 08-03-2024 Basophil, Absolute 0.1 10 3/mcL Normal 0.0-0.2 [facility] Comment on above: Performed By: #### G FR, CMP, ANEU, A1C, ADIFF, LIPID, TSH, CBC #### [address] [address] Basophils/100 WBC (Bld) 2.0 % Normal 0.0-2.5 [facility] Comment on above: Performed By: #### G FR, CMP, ANEU, A1C, ADIFF, LIPID, TSH, CBC #### [address] [address] Eosinophil, Absolute 0.1 10 3/mcL Normal 0.0-0.7 [facility] Comment on above: Performed By: #### G FR, CMP, ANEU, A1C, ADIFF, LIPID, TSH, CBC #### [address] [address] Eosinophils/100 WBC (Bld) 2.2 % Normal 0.0-7.0 [facility] Comment on above: Performed By: #### G FR, CMP, ANEU, A1C, ADIFF, LIPID, TSH, CBC #### [address] [address] Lymphocyte, Absolute 2.3 10 3/mcL Normal 0.9-4.3 [facility] Comment on above: Performed By: #### G FR, CMP, ANEU, A1C, ADIFF, LIPID, TSH, CBC #### [address] [address] Lymphocytes/100 WBC (Bld) 34.8 % Normal 20.0-40.0 [facility] Comment on above: Performed By: #### G FR, CMP, ANEU, A1C, ADIFF, LIPID, TSH, CBC #### [address] [address] Monocyte, Absolute 0.4 10 3/mcL Normal 0.1-1.4 [facility] Comment on above: Performed By: #### G FR, CMP, ANEU, A1C, ADIFF, LIPID, TSH, CBC #### [address] [address] Monocytes/100 WBC (Bld) 6.2 % Normal 2.0-13.0 [facility] Comment on above: Performed By: #### G FR, CMP, ANEU, A1C, ADIFF, LIPID, TSH, CBC #### [address] [address] Neutrophils/100 WBC (Bld) 54.8 % Normal 50.0-75.0 [facility] Comment on above: Performed By: #### G FR, CMP, ANEU, A1C, ADIFF, LIPID, TSH, CBC #### [address] [address] .GFRon 08-03-2024 GFR 84 ml/min/1.73sqm Normal [facility] Comment on above: Result Comment: GFR Population [...] ANEU, A1C, ADIFF, LIPID, TSH, CBC #### [address] [address] GFR Non- 69 ml/min/1.73sqm Normal [facility] Comment on above: Result Comment: GFR Population [...] ANEU, A1C, ADIFF, LIPID, TSH, CBC #### [address] [address] .NEUABSon 08-03-2024 Neutrophil, Absolute 3.6 10 3/mcL Normal 2.3-8.1 [facility] Comment on above: Performed By: #### G FR, CMP, ANEU, A1C, ADIFF, LIPID, TSH, CBC #### [address] [address] A1Con 08-03-2024 Glucose [Mass/Vol] 117 mg/dL Normal [facility] Comment on above: Result Comment: Rhonda mated Average Glucose calculated by equation ((28.7xA1C)-46.7) Estimated average glucose (eAG) is a calculated value from Hemoglobin A1C and is solar manufacturer's representative of the average blood glucose level in the last 2-3 month period. Normal range: less than 114 mg/dL Performed By: #### G FR, CMP, ANEU, A1C, ADIFF, LIPID, TSH, CBC #### [address] [address] HbA1c (Bld) [Mass fraction] 5.7 % Normal 4.3-6.4 [facility] Comment on above: Performed By: #### G FR, CMP, ANEU, A1C, ADIFF, LIPID, TSH, CBC #### [address] [address] CBCon 08-03-2024 Erythrocyte distribution width (RBC) [Ratio] 12.8 % Normal 11.5-15.5 [facility] Comment on above: Performed By: #### G FR, CMP, ANEU, A1C, ADIFF, LIPID, TSH, CBC #### [address] [address] Hematocrit (Bld) [Volume fraction] 40.3 % Normal 34.0-46.0 [facility] Comment on above: Performed By: #### G FR, CMP, ANEU, A1C, ADIFF, LIPID, TSH, CBC #### [address] [address] Hgb 13.6 G/dL Normal 12.0-16.0 [facility] Comment on above: Performed By: #### G FR, CMP, ANEU, A1C, ADIFF, LIPID, TSH, CBC #### [address] [address] MCH (RBC) [Entitic mass] 30.1 pg Normal 27.0-33.0 [facility] Comment on above: Performed By: #### G FR, CMP, ANEU, A1C, ADIFF, LIPID, TSH, CBC #### [address] [address] MCHC 33.8 G/dL Normal 32.0-36.0 [facility] Comment on above: Performed By: #### G FR, CMP, ANEU, A1C, ADIFF, LIPID, TSH, CBC #### [address] [address] MCV (RBC) [Entitic vol] 89.3 fL Normal 80.0-99.0 [facility] Comment on above: Performed By: #### G FR, CMP, ANEU, A1C, ADIFF, LIPID, TSH, CBC #### [address] [address] Platelet 235 10 3/mcL Normal 150-450 [facility] Comment on above: Performed By: #### G FR, CMP, ANEU, A1C, ADIFF, LIPID, TSH, CBC #### [address] [address] Platelet mean volume (Bld) [Entitic vol] 8.1 fL Normal 6.6-10.5 [facility] Comment on above: Performed By: #### G FR, CMP, ANEU, A1C, ADIFF, LIPID, TSH, CBC #### [address] [address] RBC 4.51 10 6/mcL Normal 4.10-5.30 [facility] Comment on above: Performed By: #### G FR, CMP, ANEU, A1C, ADIFF, LIPID, TSH, CBC #### [address] [address] WBC 6.6 10 3/mcL Normal 4.5-10.8 [facility] Comment on above: Performed By: #### G FR, CMP, ANEU, A1C, ADIFF, LIPID, TSH, CBC #### [address] [address] CMPon 08-03-2024 Albumin Level 3.8 G/dL Normal 3.5-5.0 [facility] Comment on above: Performed By: #### G FR, CMP, ANEU, A1C, ADIFF, LIPID, TSH, CBC #### [address] [address] Albumin/Globulin [Mass ratio] 1.2 {ratio} Normal 1.1-2.5 [facility] Comment on above: Performed By: #### G FR, CMP, ANEU, A1C, ADIFF, LIPID, TSH, CBC #### [address] [address] ALP [Catalytic activity/Vol] 79 U/L Normal 40-135 [facility] Comment on above: Performed By: #### G FR, CMP, ANEU, A1C, ADIFF, LIPID, TSH, CBC #### [address] [address] ALT [Catalytic activity/Vol] 21 U/L Normal 14-59 [facility] Comment on above: Performed By: #### G FR, CMP, ANEU, A1C, ADIFF, LIPID, TSH, CBC #### [address] [address] AST [Catalytic activity/Vol] 15 U/L Normal 10-40 [facility] Comment on above: Performed By: #### G FR, CMP, ANEU, A1C, ADIFF, LIPID, TSH, CBC #### [address] [address] Bili Total 0.4 mg/dL Normal 0.2-1.0 [facility] Comment on above: Result Comment: Use of this assay is not recommended for patients undergoing treatment with eltrombopag due to the potential for falsely elevated results. Performed By: #### G FR, CMP, ANEU, A1C, ADIFF, LIPID, TSH, CBC #### [address] [address] BUN/Creatinine Ratio 16 ratio Normal 7-27 [facility] Comment on above: Performed By: #### G FR, CMP, ANEU, A1C, ADIFF, LIPID, TSH, CBC #### [address] [address] Calcium [Mass/Vol] 9.4 mg/dL Normal 8.4-10.2 [facility] Comment on above: Performed By: #### G FR, CMP, ANEU, A1C, ADIFF, LIPID, TSH, CBC #### [address] [address] Chloride [Moles/Vol] 105 mmol/L Normal 98-107 [facility] Comment on above: Performed By: #### G FR, CMP, ANEU, A1C, ADIFF, LIPID, TSH, CBC #### [address] [address] CO2 [Moles/Vol] 30 mmol/L High 22-29 [facility] Comment on above: Performed By: #### G FR, CMP, ANEU, A1C, ADIFF, LIPID, TSH, CBC #### [address] [address] Creatinine [Mass/Vol] 1.01 mg/dL Normal 0.55-1.02 [facility] Comment on above: Result Comment: Test ing performed on Siemens Dimension EXL analyzer using a modified kinetic [place] technique. Performed By: #### G FR, CMP, ANEU, A1C, ADIFF, LIPID, TSH, CBC #### [address] [address] Electrolyte Balance 5.0 mEq/L Normal 4.0-15.0 [facility] Comment on above: Performed By: #### G FR, CMP, ANEU, A1C, ADIFF, LIPID, TSH, CBC #### [address] [address] Globulin 3.1 G/dL Normal [facility] Comment on above: Performed By: #### G FR, CMP, ANEU, A1C, ADIFF, LIPID, TSH, CBC #### [address] [address] Glucose [Mass/Vol] 86 mg/dL Normal 70-105 [facility] Comment on above: Performed By: #### G FR, CMP, ANEU, A1C, ADIFF, LIPID, TSH, CBC #### [address] [address] Potassium [Moles/Vol] 5.3 mmol/L High 3.5-5.1 [facility] Comment on above: Performed By: #### G FR, CMP, ANEU, A1C, ADIFF, LIPID, TSH, CBC #### [address] [address] Sodium [Moles/Vol] 140 mmol/L Normal 136-145 [facility] Comment on above: Performed By: #### G FR, CMP, ANEU, A1C, ADIFF, LIPID, TSH, CBC #### [address] [address] Total Protein 6.9 G/dL Normal 6.4-8.2 [facility] Comment on above: Performed By: #### G FR, CMP, ANEU, A1C, ADIFF, LIPID, TSH, CBC #### [address] [address] Urea nitrogen [Mass/Vol] 16 mg/dL Normal 7-18 [facility] Comment on above: Performed By: #### G FR, CMP, ANEU, A1C, ADIFF, LIPID, TSH, CBC #### [place] [address] [place], [place] [address] LABORATORYOrdered By: SYSTEM SYSTEM on 08-03-2024 Albumin [...] calculated value from Hemoglobin A1C and is solar manufacturer's representative of the average blood glucose level [...] Cholesterol [Mass/Vol] 165 mg/dL Normal 0 - 2 00 mg/dL AO ADM SS Comment on above: [...] 08-03-2024 Cholesterol [Mass/Vol] 165 mg/dL Normal 0-200 [facility] Comment on above: Result Comment: Chol esterol Reference Interval: Less than 200 Desirable 200-239 Borderline high risk 240 and above High risk Performed By: #### G FR, CMP, ANEU, A1C, ADIFF, LIPID, TSH, CBC #### [place] [address] [place], [place] [address] Cholesterol in HDL [Mass/Vol] 66 mg/dL High 40-60 [facility] Comment on above: Performed By: #### G FR, CMP, ANEU, A1C, ADIFF, LIPID, TSH, CBC #### [place] [address] [place], [place] [address] Cholesterol in LDL [Mass/Vol] 93 mg/dL Normal 0-130 [facility] Comment on above: Performed By: #### G FR, CMP, ANEU, A1C, ADIFF, LIPID, TSH, CBC #### [place] [address] [place], [place] [address] Triglyceride [Mass/Vol] 28 mg/dL Normal 0-150 [facility] Comment on above: Result Comment: Trig lyceride Reference Interval: Less than 150 Normal 150-199 Borderline high risk 200-499 High risk 500 or higher Very high risk Performed By: #### G FR, CMP, ANEU, A1C, ADIFF, LIPID, TSH, CBC #### [facility] [address] [place], [place] [address] TSHon 08-03-2024 TSH Qn 0.73 m[IU]/L Normal 0.36-3.74 [facility] Comment on above: Performed By: #### G FR, CMP, ANEU, A1C, ADIFF, LIPID, TSH, CBC #### [facility] [address], [place] [address] Urgent Care Visit Reporton 1 Urgent Care Visit Report [facility] [address], [address] [place] [address] OFFICE VISIT Date of Service: 08/03/24 MR#: [id number] Acct: [id number] Name: PRISCILLA WALTERS Rep #: [id number] : 2000 Provider: CHARBEL Monreal Age/Sex: 23/ Location: [facility] Status: Signed Intake Vital Signs 06/24/24 08:24 [...] SWOLLEN EYE Chief Complaint: right eye swollen Pipefitter Required: No Accompanied by: Mother Is patient [...] for a swollen right eye since yesterday. [facility] Medical History (Updated 08/03/24 @ 10:11 by Eric BARGER, PA) Blepharitis of right upper eyelid Acute pharyngitis, unspecified Urinary tract infection with hematuria Elevated lipoprotein A level Family History Uncle CAD (coronary artery disease) Myocardial infarction, Onset Age: 53 Social History current occupational status: student current occupation: [employer] sexually active: No Smoking Status: Never smoker [...] eye. No complaints of fever, chills, sweats, lightheadedness/dizzi ness, nausea/vomiting. Cool compress tried last evening with minimal assist in symptoms progressively worsen once again shortly thereafter. Mgez-iiy-xzeugve oral Benadryl taken without assist last evening. No other associated symptoms and no other alleviating/aggravati ng factors. ROS Const Constitutional: No other (As above) Exam Const General: cooperative, healthy appearing and no acute distress Nutritional Appearance: average body habitus Orientation: alert and awake [facility] Head: normal to inspection Ears: hearing [...] the above. This note was generated with Badger Mapsation software. It may contain incorrect words, spelling, and punctuation that were not noted in checking the note before signing. Medications: New azithromycin For 250 mg dose pack: take 500 mg today (day 1), then 250 mg for 4 days (days 2-5) PO; START ON 08/06/24 ONLY IF NO IMPROVEMENT 6 tabs 0RF Clinical Quality Measures Falls Risk S (more content not included)... Normal [facility] CBC-Complete Blood Cnt No Di ffon 06-24-2024 Erythrocyte distribution width (RBC) [Ratio] 11.8 % Normal 11.6-14.6 [facility] Comment on above: Performed By: #### L 506.1000, L503.0105, L503.6030, L100.0500 #### [facility] [address] [place], [address] Hematocrit (Bld) [Volume fraction] 43.6 % Normal 37-47 [facility] Comment on above: Performed By: #### L 506.1000, L503.0105, L503.6030, L100.0500 #### [facility] [address] [place], [address] Hemoglobin (Bld) [Mass/Vol] 14.3 g/dL Normal 12.0-15.0 [facility] Comment on above: Performed By: #### L 506.1000, L503.0105, L503.6030, L100.0500 #### [facility] [address] [place], [address] MCH (RBC) [Entitic mass] 29.1 pg Normal 27.0-32.0 [facility] Comment on above: Performed By: #### L 506.1000, L503.0105, L503.6030, L100.0500 #### [facility] [address] [place], [address] MCHC (RBC) [Mass/Vol] 32.8 g/dL Normal 32-36 [facility] Comment on above: Performed By: #### L 506.1000, L503.0105, L503.6030, L100.0500 #### [facility] [address] [place], [address] MCV (RBC) [Entitic vol] 88.8 fL Normal 81-99 [facility] Comment on above: Performed By: #### L 506.1000, L503.0105, L503.6030, L100.0500 #### [facility] [address] [place], [address] Platelet mean volume (Bld) [Entitic vol] 9.3 fL Normal 6.2-12.0 [facility] Comment on above: Performed By: #### L 506.1000, L503.0105, L503.6030, L100.0500 #### [facility] [address] [place], [address] Platelets (Bld) [#/Vol] 293 10*3/uL Normal 150-450 [facility] Comment on above: Performed By: #### L 506.1000, L503.0105, L503.6030, L100.0500 #### [facility] [address] [place], [address] RBC (Bld) [#/Vol] 4.91 10*6/uL Normal 4.2-5.4 [facility] Comment on above: Performed By: #### L 506.1000, L503.0105, L503.6030, L100.0500 #### [facility] [address] [place], [address] RDW SD 38.0 fl Normal 35.1-43.9 [facility] Comment on above: Performed By: #### L 506.1000, L503.0105, L503.6030, L100.0500 #### [facility] [address] [place], [address] WBC (Bld) [#/Vol] 5.4 10*3/uL Normal 4.4-11.0 [facility] Comment on above: Performed By: #### L 506.1000, L503.0105, L503.6030, L100.0500 #### [facility] [address] [place], [address] Iron+Iron Binding Capacityon 06-24-2024 Iron [Mass/Vol] 123 ug/dL Normal 50-170 [facility] Comment on above: Performed By: #### L 506.1000, L503.0105, L503.6030, L100.0500 #### [facility] [address] [place], [address] IRON SATURATION 27.8 Normal 15.0-55.0 [facility] Comment on above: Performed By: #### L 506.1000, L503.0105, L503.6030, L100.0500 #### [facility] [address] [place], [address] TIBC 442 ug/dL Normal 250-450 [facility] Comment on above: Performed By: #### L 506.1000, L503.0105, L503.6030, L100.0500 #### [facility] [address] [place], [address] Urgent Care Visit Reporton 08-24-2023 Urgent Care Visit Report [facility] [address], [address] [place] [address] OFFICE VISIT Date of Service: 06/24/24 MR#: [id number] Acct: [id number] Name: PRISCILLA WALTERS Rep #: [id number] : 2000 Provider: CHARBEL Waller Age/Sex: 23/F Location: [facility] Status: Signed Intake Vital Signs 02/19/24 15:11 [...] Fatigue, SHAKEY FEELING Chief Complaint: fatigue, dizziness Pipefitter Required: No Is patient in pain?: No [...] 1 week, ran covid/influenza test on patient. PFSH Medical History Acute pharyngitis, unspecified Urinary tract infection with hematuria Elevated lipoprotein A level Family History Uncle CAD (coronary artery disease) Myocardial infarction, Onset Age: 53 Social History current occupational status: student current occupation: [employer] sexually active: No Smoking Status: Never smoker [...] heavy cycles. No other associated symptoms or alleviating/aggravati ng factors. ROS Const Constitutional: Positive for other [...] Musa Signature: Date (if applicable) CC: Normal [facility] Vitamin B12on 06-24-2024 Cobalamin (Vitamin B12) [Mass/Vol] 1959 pg/mL High 211-911 [facility] Comment on above: Performed By: #### L 506.1000, L503.0105, L503.6030, L100.0500 ####[facility] [address] [place], [place], [id number] Vitamin D,25 Hydroxyon 06-24 Vitamin D 25-OH 18.6 ng/mL Normal [facility] Comment on above: Result Comment: Sandra min D 25(OH) Status Range Deficiency <20 ng/mL (50nmol/L) Insufficiency 20 - 30 ng/mL (50 - 75 nmol/L) Sufficiency 30 - 100 ng/mL (75 - 250 nmol/L) Toxicity >100 ng/mL (>250 nmol/L) Performed By: #### L 506.1000, L503.0105, L503.6030, L100.0500 ####[facility] [address] [place], [place], [id number] Lipid Profileon 04-16-2024 Cholesterol [Mass/Vol] 157 mg/dL Normal 200 [facility] Comment on above: Result Comment: <200 mg/dL Desirable 200-240 mg/dL Borderline >240 mg/dL High Risk Performed By: #### L 500.4100, L500.3400 ####[facility] [address] [place], [place], [id number] Cholesterol in HDL [Mass/Vol] 68 mg/dL Normal [facility] Comment on above: Result Comment: The drugs N-Acetylcysteine and Metamizole may falsely depress this assay. Reference Range HDL <40 mg/dL Low HDL Cholesterol HDL >or= 60 mg/dL High HDL Cholesterol Performed By: #### L 500.4100, L500.3400 ####[facility] [address] [place], [address] Cholesterol in LDL [Mass/Vol] 82 mg/dL Normal 0-130 [facility] Comment on above: Performed By: #### L 500.4100, L500.3400 ####[facility] [address] [place], [address] Cholesterol in VLDL [Mass/Vol] 7 mg/dL Normal 5-40 [facility] Comment on above: Performed By: #### L 500.4100, L500.3400 ####[facility] [address] [place], [address] Triglyceride [Mass/Vol] 34 mg/dL Normal [facility] Comment on above: Result Comment: The drugs N-Acetylcysteine and Metamizole may falsely depress this assay. Serum Triglycerides Reference Interval Normal <150 mg/dL Borderline high 150 - 199 mg/dL High 200 - 499 mg/dL Very High > or = 500 mg/dL Performed By: #### L 500.4100, L500.3400 ####[facility] [address] [place], [address] Liver Profileon 04-16-2024 Albumin [Mass/Vol] 4.3 g/dL Normal 3.2-5.0 [facility] Comment on above: Performed By: #### L 500.4100, L500.3400 ####[facility] [address] [place], [address] ALK P 77 U/L Normal 45-117 [facility] Comment on above: Performed By: #### L 500.4100, L500.3400 ####[facility] [address] [place], [address] ALT [Catalytic activity/Vol] 17 U/L Normal 13-56 [facility] Comment on above: Performed By: #### L 500.4100, L500.3400 ####[facility] [address] [place], [address] AST [Catalytic activity/Vol] 12 U/L Low 15-37 [facility] Comment on above: Performed By: #### L 500.4100, L500.3400 ####[facility] [address] [place], [address] Bilirubin [Mass/Vol] 0.40 mg/dL Normal 0.20-1.00 [facility] Comment on above: Result Comment: For patients on eltrombopag therapy, use of Dimension [facility]cleod TBIL is not recommended. Performed By: #### L 500.4100, L500.3400 ####[facility] [address] [place], [address] Bilirubin.direct [Mass/Vol] 0.16 mg/dL Normal 0.00-0.30 [facility] Comment on above: Performed By: #### L 500.4100, L500.3400 ####[facility] [address] [place], [address] Globulin (S) [Mass/Vol] 3.2 g/dL Normal 2.2-4.2 [facility] Comment on above: Performed By: #### L 500.4100, L500.3400 ####[facility] [address] [place], [address] T PROT 7.5 g/dL Normal 6.4-8.2 [facility] Comment on above: Performed By: #### L 500.4100, L500.3400 ####[facility] [address] [place], [address] Amorphous sediment detection in urine sediment by light microscopyon 06-13-2022 Amorphous sediment LM Ql (Urine sed) 1+ [facility] Work Phone: Basophil percentageon 2021 Basophil percentage 25-50 SEEN /hpf 0-5 [facility] Work Phone: Bilirubin Test strip Ql (U)o n 06-13-2022 Bilirubin Ql (U) 3 mg/dL Negative [facility] Work Phone: Comment on above: COLOR OF URINE MAY A FFECT DIPSTICK RESULTS. Ketones Test strip Ql (U)on 06-13-2022 Ketones Ql (U) Negative Negative [facility] Work Phone: Mucus LM Ql (Urine sed)on Mucus Ql (Urine sed) 0 SEEN /hpf [facility] Work Phone: Nitrite Test strip Ql (U)on 06-13-2022 Nitrite Ql (U) Positive Negative [facility] Work Phone: No Panel Informationon 06-13 Urine Transitional Epithelial Cells 0-5 SEEN /hpf 0-5 [facility] Work Phone: Protein Test strip Ql (U)on 06-13-2022 Protein Ql (U) 30 mg/dl Negative [facility] Work Phone: Squamous epithelial cells de tection in urine sediment by light microscopyon 06-13-2022 Epithelial cells.squamous LM Ql (Urine sed) 0-5 SEEN /hpf 5-10 [facility] Work Phone: Urine blood detectionon 06-04 RBC Ql (U) 150 /ul Negative [facility] Work Phone: RBC Ql (U) 10-25 SEEN /hpf 0-5 [facility] Work Phone: Urine clarityon 06-13-2022 Clarity (U) Cloudy Clear [facility] Work Phone: Urine color determinationon 06-13-2022 Color (U) [place] Yellow [facility] Work Phone: Urine glucose detectionon Glucose Ql (U) Normal mg/dl Normal [facility] Work Phone: Urine leukocyte esterase det ection by dipstickon 06-13-2022 Leukocyte esterase Test strip Ql (U) 100 /ul Negative [facility] Work Phone: Urine pHon 06-13-2022 pH (U) 6.0 [pH] 5.0 - 8.0 [facility] Work Phone: Urine sediment bacteria coun t by microscopy (number/high power field)on 06-13-2022 Bacteria LM.HPF (Urine sed) [#/Area] 4 /[HPF] None Seen [facility] Work Phone: Urine sediment renal epithel ial cell count by microscopy (number/high power field)on 06-13-2022 Epithelial cells.renal LM.HPF (Urine sed) [#/Area] 5 /[HPF] 0-5 [facility] Work Phone: Urine specific gravity measu rementon 06-13-2022 Specific gravity (U) [Rel density] 1.020 1.002-1.030 [facility] Work Phone: Urobilinogen Auto test strip Ql (U)on 06-13-2022 Urobilinogen Ql (U) 4 mg/dl Normal [facility] Work Phone: Laboratory - Chemistry and C hemistry - challengeon 06-12-2022 HCG ( test) Ql (U) Negative [facility] Work Phone: Bilirubin Ql (U) Negative [facility] Work Phone: Glucose Ql (U) Negative [facility] Work Phone: Ketones Ql (U) Trace (5) [facility] Work Phone: pH (U) 6.5 [pH] [facility] Work Phone: Specific gravity (U) [Rel density] 1.020 [facility] Work Phone: Urobilinogen (U) [Mass/Vol] Negative [facility] Work Phone: Laboratory - Hematology and Cell countson 06-12-2022 Hemoglobin Ql (U) Hemolyzed [facility] Work Phone: [phone] Laboratory - Specimen inform ationon 06-12-2022 Clarity (U) Cloudy [facility] Work Phone: [phone] Color (U) ORANGE [facility] Work Phone: [phone] Laboratory - Urinalysison Nitrite Ql (U) Negative [facility] Work Phone: [phone] Protein Ql (U) Negative [facility] Work Phone: [phone] Panel Informationon 06-12 Urine Leukocytes Positive [facility] Work Phone: [phone] Urine Non-Hemolyzed Blood Moderate [facility] Work Phone: Basophil percentageon 2021 Bilirubin [Mass/Vol] 0.40 mg/dL 0.20-1.00 [facility] Work Phone: [phone] Comment on above: For patients on eltr ombopag therapy, use of Dimension [facility] TBIL is not recommended. Cholesterol [Mass/Vol] 170 mg/dL <200 [facility] Work Phone: [phone] Comment on above: <200 mg/dL Desirable 200-240 mg/dL Borderline >240 mg/dL High Risk Protein [Mass/Vol] 7.4 g/dL 6.4-8.2 [facility] Work Phone: [phone] Triglyceride [Mass/Vol] 112 mg/dL <199 [facility] Work Phone: [phone] Comment on above: The drugs N-Acetylcy steine and Metamizole may falsely depress this assay.Serum Triglycerides Reference Interval Normal <150 mg/dL Borderline high 150 - 199 mg/dL High 200 - 499 mg/dL Very High > or = 500 mg/dL Direct bilirubinon Bilirubin.direct [Mass/Vol] 0.10 mg/dL 0.00-0.30 [facility] Work Phone: [phone] Laboratory - Chemistry and C hemistry - challengeon 06-06-2022 ALP [Catalytic activity/Vol] 61 U/L 45-117 [facility] Work Phone: ALT [Catalytic activity/Vol] 37 U/L 13-56 [facility] Work Phone: [phone] Globulin (S) [Mass/Vol] 3.7 g/dL 2.2-4.2 [facility] Work Phone: Serum or plasma albumin eugene urement (mass/volume)on 06-06-2022 Albumin [Mass/Vol] 3.7 g/dL 3.2-5.0 [facility] Work Phone: [phone] Serum or plasma cholesterol in HDL measurement (mass/volume)on 06-06-2022 Cholesterol in HDL [Mass/Vol] 46 mg/dL >40 [facility] Work Phone: Comment on above: The drugs N-Acetylcy steine and Metamizole may falsely depress this assay. Reference Range HDL <40 mg/dL Low HDL Cholesterol HDL >or= 60 mg/dL High HDL Cholesterol Serum or plasma cholesterol in VLDL measurement (mass/volume)on 06-06-2022 Cholesterol in VLDL [Mass/Vol] 22 mg/dL 5-40 [facility] Work Phone: [phone] Serum or plasma low density lipoprotein (LDL) cholesterol measurement (mass/volume)on 06-06-2022 Cholesterol in LDL [Mass/Vol] 102 mg/dL 0-130 [facility] Work Phone: [phone] Thin prep Papanicolaou smear with manual screeningon 06-06-2022 Thin prep Papanicolaou smear with manual screening 20 U/L 15-37 [facility] Work Phone: Basophil percentageon 2021 C. trachomatis DNA JERED+probe Ql (Unsp spec) Negative Negative [facility] Work Phone: [phone] Neisseria gonorrhoeae detect ion by PCRon 04-17-2022 N. gonorrhoeae DNA JERED+probe Ql (Cervical mucus) Negative Negative [facility] Work Phone: Progress Noteon 12-13-2021 Bundle Tier Authentication Interface Message Text Priscilla Walters is a here for follow-up of Chief Complaint Patient presents with New Patient Visit Hx Cardiac Disorder History of Presenting Problem Priscilla [...] well. She is following with an adult delivery driver assistant. 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 Priscilla is active with no history of activity intolerance. She was in track, gymnastics, and cheer leading in high school. She is now heading to college at the [employer] to study Horse production and management. Denies [...] as of 12/13/2021 Medication Sig Dispense Refill levonorgestrel-ethiny l estradiol (AVIANE) 0.1-20 MG-MCG per tablet Levonorgestrel-Ethin Estradiol (Orsythia-28 Tablet) 0.1-20 mg-mcg tablet Levonorgestrel-Ethin Estradiol (Orsythia-28 Tablet) 0.1-20 mg-mcg tablet Active 1 TAB PO daily May 29, 2020 2:47pm 05-29-2020 [facility] ([id number]) No facility-administered encounter medications on file as of 12/13/2021. Allergies: No Known Allergies Physical Exam: Vitals: 12/13/21 0952 BP: 115/64 Pulse: 66 Resp: 16 Blood pressure percentiles are not available for patients who are 18 years or older. Height: 158 cm 21 %ile (Z= -0.81) based on [facility] (Girls, 2-20 Years) Qrieicv-mrg-vhp data based on Stature recorded on 12/13/2021. Weight - Scale: 56.7 kg 47 %ile (Z= -0.07) based on [facility] (Girls, 2-20 Years) rwwhqs-tqz-hxv data using vitals from 12/13/2021. Physical Exam [...] disease. Plan/Recommendations: Recommend follow up with Adult Manager Care Management who specializes in Lipoprotein A disorders. No cardiac contraindications to physical activities. No need for f/u in Pediatric Cardiology. Counseling and/or coordination of care (face to face time in the office/outpatient setting or floor/unit time in the hospital) was gre (more content not included)... Normal [facility] - Chemistry and C hemistry - challengeon 12-10-2021 Lipoprotein a [Moles/Vol] 150.1 nmol/L [facility] Work Phone: Comment on above: Note: Values greater than or equal to 75.0 nmol/L may indicate an independent risk factor for CHD, but must be evaluated with caution when applied to non- populations due to the influence of genetic factors on Lp(a) across ethnicities.Performed at: [facility] [employer] Director: Clayton Bashir PhD, Phone: [phone] Progress Noteon 12-10-2021 Bundle Tier Authentication Interface Message Text Priscilla Walters is [...] high (like other illegal drugs, prescription or yvcn-kdg-syutpno medications, and things that you sniff, aviles, or vape)? Put 0 if none.: 0 4. Use any tobacco or nicotine products (for example, cigarettes, e-cigarettes, hookahs or smokeless tobacco)?: 0 5. Have you ever ridden in a CAR driven by someone (including yourself) who was high or had been using alcohol or drugs?: No Electronically signed by: Jazlyn Jones [facility]: Priscilla Walters is a 21 y.o. [...] With Score - Health Risk Assessment - FANTASMA Need for vaccination - Meningococcal B (BEXSERO) Family history of cardiac disorder - Lipoprotein A; Future - AMB Referral To Cardiology; Future growth and development reviewed Call for any questions/concerns/pr oblems/changes All questions answered Return in about 1 [...] (!) 156.2 cm, weight 57.[address] [facility] Basophil percentageon 2021 C. trachomatis DNA JERED+probe Ql (Unsp spec) Negative Negative [facility] Work Phone: Neisseria gonorrhoeae detect ion by PCRon 11-07-2021 N. gonorrhoeae DNA JERED+probe Ql (Cervical mucus) Negative Negative [facility] Work Phone: Office Visit: UC: earacheon 04-08-2017 Documentation of current medications (procedure) T Invalid Interpretation Code [facility] Work Phone: Documentation of current medications (procedure) Done Invalid Interpretation Code [facility] Work Phone: Tobacco smoking status NHIS Never Invalid Interpretation Code [facility] Work Phone: Tobacco use HS Never smoker Invalid Interpretation Code [facility] Work Phone: Culture, urine Bacteria identified Cx Nom (U) Presumptive E. coli [facility] Work Phone: Vital Signs Date Time Vital Sign Value Performing Clinician Sam stewart 03-03-2025 14:24-0400 Body height 157.[address] Viridiana Faustin MD [facility] 03-03-2025 14:24-0400 Body mass index (BMI) [Ratio] 24.1 kg/m2 Dr. Viridiana Faustin MD [facility] 03-03-2025 14:24-0400 Body weight 59.[address] Viridiana Faustin MD [facility] 03-03-2025 14:24-0400 Diastolic blood pressure 91 mm[Hg] Dr. Viridiana Faustin MD [facility] 03-03-2025 14:24-0400 Systolic blood pressure 136 mm[Hg] Dr. Viridiana Faustin MD [facility] 02-16-2025 13:50-0400 Body height 157.[address] Viridiana Faustin MD [facility] 02-16-2025 13:50-0400 Body mass index (BMI) [Ratio] 24.1 kg/m2 Dr. Viridiana Faustin MD [facility] 02-16-2025 13:50-0400 Body weight 59.[address] Viridiana Faustin MD [facility] 02-16-2025 13:50-0400 Diastolic blood pressure 78 mm[Hg] Dr. Viridiana Faustin MD [facility] 02-16-2025 13:50-0400 Systolic blood pressure 118 mm[Hg] Dr. Viridiana Faustin MD [facility] 06-12-2022 14:56-0500 Body temperature 97.8 [degF] SUPPORT TEACHER-Ashlee Perry SUPPORT TEACHER Work Phone: [facility] Work Phone: 06-12-2022 14:56-0500 Diastolic blood pressure 66 mm[Hg] SUPPORT TEACHER-Ashlee Perry SUPPORT TEACHER Work Phone: [facility] Work Phone: 06-12-2022 14:56-0500 Heart rate 106 /min SUPPORT TEACHER-C Alia Orlando SUPPORT TEACHER Work Phone: [facility] Work Phone: 06-12-2022 14:56-0500 Respiratory rate 14 /min SUPPORT TEACHER-C Alia Clallam SUPPORT TEACHER Work Phone: [facility] Work Phone: 06-12-2022 14:56-0500 SaO2% (BldA) [Mass fraction] 98 % SUPPORT TEACHER-C Alia Clallam SUPPORT TEACHER Work Phone: [facility] Work Phone: 06-12-2022 14:56-0500 Systolic blood pressure 108 mm[Hg] SUPPORT TEACHER-C Alia Clallam SUPPORT TEACHER Work Phone: [facility] Work Phone: 05-15-2022 12:51-0400 Body height 157.48 cm SUPPORT TEACHER-C Alia Clallam SUPPORT TEACHER Work Phone: [facility] Work Phone: 05-15-2022 12:51-0400 Body mass index (BMI) [Percentile] Per age and sex 70 % SUPPORT TEACHER-C Alia Clallam SUPPORT TEACHER Work Phone: [facility] Work Phone: 05-15-2022 12:51-0400 Body mass index (BMI) [Ratio] 23.6 kg/m2 SUPPORT TEACHER-C Alia Clallam SUPPORT TEACHER Work Phone: [facility] Work Phone: 05-15-2022 12:51-0400 Body weight 58.51 kg SUPPORT TEACHER-C Alia Clallam SUPPORT TEACHER Work Phone: [facility] Work Phone: 05-15-2022 12:51-0400 Diastolic blood pressure 75 mm[Hg] SUPPORT TEACHER-C Alia Orlando SUPPORT TEACHER Work Phone: [facility] Work Phone: 05-15-2022 12:51-0400 Heart rate 76 /min SUPPORT TEACHER-C Alia Orlando SUPPORT TEACHER Work Phone: [facility] Work Phone: 05-15-2022 12:51-0400 Respiratory rate 16 /min SUPPORT TEACHER-C Alia Orlando SUPPORT TEACHER Work Phone: [facility] Work Phone: 05-15-2022 12:51-0400 SaO2% (BldA) [Mass fraction] 100 % SUPPORT TEACHER-C Alia Clallam SUPPORT TEACHER Work Phone: [facility] Work Phone: 05-15-2022 12:51-0400 Systolic blood pressure 127 mm[Hg] SUPPORT TEACHER-C Alia Orlando SUPPORT TEACHER Work Phone: [facility] Work Phone: 04-17-2022 13:03-0400 Body mass index (BMI) [Percentile] Per age and sex 79.4 % SUPPORT TEACHER-C Alia Clallam SUPPORT TEACHER Work Phone: [facility] Work Phone: 04-17-2022 13:03-0400 Body mass index (BMI) [Ratio] 25 kg/m2 SUPPORT TEACHER-C Alia Orlando SUPPORT TEACHER Work Phone: [facility] Work Phone: 04-17-2022 13:03-0400 Diastolic blood pressure 82 mm[Hg] SUPPORT TEACHER-C Alia Orlando SUPPORT TEACHER Work Phone: [facility] Work Phone: 04-17-2022 13:03-0400 Systolic blood pressure 124 mm[Hg] SUPPORT TEACHER-C Alia Orlando SUPPORT TEACHER Work Phone: [facility] Work Phone: 04-17-2022 13:01-0400 Body weight 62.14 kg SUPPORT TEACHER-C Alia Clallam SUPPORT TEACHER Work Phone: [facility] Work Phone: 11-07-2021 14:55-0400 Body height 157.48 cm SUPPORT TEACHER-C Alia Clallam SUPPORT TEACHER Work Phone: [facility] Work Phone: 11-07-2021 14:55-0400 Body mass index (BMI) [Ratio] 24.7 kg/m2 SUPPORT TEACHER-C Alia Perry SUPPORT TEACHER Work Phone: [facility] Work Phone: 11-07-2021 14:55-0400 Body weight 61.23 kg SUPPORT TEACHER-C Alia ePrry SUPPORT TEACHER Work Phone: [facility] Work Phone: 11-07-2021 14:55-0400 Diastolic blood pressure 80 mm[Hg] SUPPORT TEACHER-C Alia Perry SUPPORT TEACHER Work Phone: [facility] Work Phone: 11-07-2021 14:55-0400 Systolic blood pressure 122 mm[Hg] SUPPORT TEACHER-C Alia Perry SUPPORT TEACHER Work Phone: [facility] Work Phone: 04-08-2017 16:27-0400 BMI (Body Mass Index) 18.75 kg/m2 Rosa Terrence [facility] Work Phone: 04-08-2017 16:27-0400 Body Temperature 99.1 [degF] Rosa Conticha [facility] Work Phone: 04-08-2017 16:27-0400 BP Diastolic 64 mm[Hg] Rosa Conticha [facility] Work Phone: 04-08-2017 16:27-0400 BP Systolic 112 mm[Hg] Rosa Conticha [facility] Work Phone: 04-08-2017 16:27-0400 Height 152.4 cm Rosa Terrence [facility] Work Phone: 04-08-2017 16:27-0400 Pulse (Heart Rate) 102 /min Rosa Conticha [facility] Work Phone: 04-08-2017 16:27-0400 Respiratory Rate 18 /min Rosa Conticha [facility] Work Phone: 04-08-2017 16:27-0400 Weight 43.55 kg Rosa Ocampo LEAD ELECTRICAL ENGINEER [facility] Work Phone: Encounters Encounter Date Encounter Type Care Provider Facility Start: 03-04-2025 End: 03-04-[address] Viridiana Faustin MD -Laboratory Start: 03-04-2025 End: 03-04-2025 Patient encounter procedure Tayla uMltani SUPPORT TEACHER-C -Laboratory Work Phone: Start: 03-03-2025 End: 03-03-2025 Patient encounter procedure Tayla Multani SUPPORT TEACHER-C -[facility] Work Phone: Start: 03-03-2025 End: 03-04-[address] Viridiana Faustin MD -[facility] Start: 02-21-2025 End: 02-21-[address] Viridiana Faustin MD -Ultrasound [facility] Start: 02-21-2025 End: 02-21-2025 Patient encounter procedure Tayla DUNNC -Ultrasound [facility] Work Phone: Start: 02-21-2025 End: 02-21-2025 ambulatory Tayla Multani Facility:[facility] Start: 02-16-2025 End: 02-16-[address] Viridiana Faustin MD -Laboratory Start: 02-16-2025 End: 02-16-2025 Patient encounter procedure Tayla Multani NP-C -Laboratory Work Phone: Start: 02-16-2025 End: 02-16-[address] Viridiana Faustin MD -[facility] Start: 02-16-2025 End: 02-16-2025 Patient encounter procedure Tayla Multani NP-C -[facility] Work Phone: Start: 02-15-2025 End: 02-16-2025 ambulatory Tayla Multani Facility:[facility] Start: 02-15-2025 End: 02-15-2025 Patient encounter procedure VIRIDIANA FAUSTIN MD [facility] Start: 01-31-2025 End: 01-31-[address] Viridiana Faustin MD -[facility] Start: 01-31-2025 End: 01-31-[address] Viridiana Faustin MD -[facility] Work Phone: Start: 01-31-2025 End: 01-31-2025 ambulatory Kitty Siddiqui Facility:[facility] Start: 01-11-2025 End: 01-11-2025 ambulatory VIRIDIANA FAUSTIN MD Facility:[facility] Start: 01-11-2025 End: 01-11-2025 Patient encounter procedure VIRIDIANA FAUSTIN MD [facility] Start: 08-03-2024 End: 08-03-2024 ambulatory KITTY SIDDIQUI DO Facility:[facility] Start: 08-03-2024 End: 08-03-2024 Patient encounter procedure KITTY SIDDIQUI DO [facility] Start: 08-03-2024 End: 08-03-2024 ambulatory No Primary Care Physician Facility:[facility] Start: 06-24-2024 End: 06-24-2024 ambulatory No Primary Care Physician Facility:[facility] Start: 06-24-2024 End: 06-24-2024 ambulatory No Primary Care Physician Facility:[facility] Start: 04-16-2024 End: 04-16-2024 ambulatory No Primary Care Physician Facility:[facility] Start: 07-23-2022 Non-patient / Non-visit SUPPORT TEACHER-C Ashlee Perry SUPPORT TEACHER Work Phone: [facility] Start: 07-23-2022 End: 07-23-2022 ambulatory SUPPORT TEACHER-C Alia Perry SUPPORT TEACHER Work Phone: [facility] Work Phone: Start: 07-23-2022 End: 07-23-2022 Patient encounter procedure SUPPORT TEACHER-C Alia Perry SUPPORT TEACHER Work Phone: [facility] Start: 06-12-2022 End: 06-12-2022 ambulatory SUPPORT TEACHER-C Alia Clallam SUPPORT TEACHER Work Phone: [facility] Work Phone: Start: 06-12-2022 End: 06-12-2022 Patient encounter procedure SUPPORT TEACHER-C Alia Perry SUPPORT TEACHER Work Phone: [facility] Start: 06-06-2022 End: 06-06-2022 ambulatory SUPPORT TEACHER-C Alia Orlando SUPPORT TEACHER Work Phone: [facility] Work Phone: Start: 06-06-2022 End: 06-06-2022 Patient encounter procedure SUPPORT TEACHER-C Alia Clallam SUPPORT TEACHER Work Phone: [facility] Start: 05-15-2022 End: 05-15-2022 Patient encounter procedure SUPPORT TEACHER-C Alia Clallam SUPPORT TEACHER Work Phone: [facility] Start: 04-17-2022 End: 04-17-2022 Patient encounter procedure SUPPORT TEACHER-C Alia Orlando SUPPORT TEACHER [facility] Start: 04-17-2022 End: 04-17-2022 Patient encounter procedure SUPPORT TEACHER-C Alia Orlando SUPPORT TEACHER Work Phone: [facility] Start: 12-10-2021 End: 12-10-2021 Patient encounter procedure SUPPORT TEACHER-C Alia Clallam SUPPORT TEACHER [facility] [place] Start: 11-07-2021 End: 11-07-2021 Patient encounter procedure SUPPORT TEACHER-C Alia Clallam SUPPORT TEACHER [facility] Start: 11-07-2021 End: 11-07-2021 Patient encounter procedure SUPPORT TEACHER-C Alia Clallam SUPPORT TEACHER Work Phone: [facility] Procedures Date Procedure Procedure Detail Performing Clinician Start: 03-04-2025 Dehydroepiandrostero ne sulfate level Dr. Viridiana Faustin MD Start: 03-04-2025 Fol[address]le stimulating hormone measurement Dr. Viridiana Faustin MD Comment on above: FEMALE:Follicular: 1 .4 - 18.1 mIU/mLMidcycle: 3.4 - 33.4 mIU/mLLuteal: 1.5 - 9.1 mIU/mLPost Menopause: 23.0 - 116.3 mIU/mLMALE: 1.4 - 18.1 mIU/mL Start: 02-21-[address] Meliza Faustin MD Start: 02-16-2025 Gram stain microscopy D elayne Faustin MD Start: 02-16-[address] Viridiana Faustin MD Start: 01-31-2025 MRI of brain with contrast Dr. Viridiana Faustin MD Urine culture SUPPORT TEACHER-C Alia Perry NP Work Phone: Plan of Treatment Date Care Activity Detail Author Start: 02-21-2025 Pelvic echography Pelvic w/ Transvaginal [facility] Start: 02-21-2025 US Pelvis [facility] Start: 06-13-2022 [facility] Work Phone: Start: 04-08-2017 End: 04-08-2017 Appointment Appointment [facility] Work Phone: Bacteria identified in Urine by Culture Urine Culture [facility] Work Phone: Chlamydia deoxyribon ucleic acid detection [facility] Patient Education [facility] Work Phone: Source specific culture [facility] Work Phone: Pelvis [facility] Immunizations Immunization Date Immunization Notes Care Provider Fa cility 12-10-2021 meningococcal B vacc ine, recombinant, OMV, adjuvanted VIRIDIANA FAUSTIN MD [facility] 10-25-2020 hepatitis A vaccine, pediatric dosage, unspecified formulation VIRIDIANA FAUSTIN MD [facility] 10-25-2020 Human Papillomavirus Quadval [facility] influenza virus vacc ine, unspecified formulation VIRIDIANA FAUSTIN MD [facility] 10-25-2020 meningococcal B vacc ine, recombinant, OMV, adjuvanted VIRIDIANA FAUSTIN MD [facility] 10-14-2019 hepatitis A vaccine, pediatric dosage, unspecified formulation VIRIDIANA FAUSTIN MD [facility] 10-14-2019 Human Papillomavirus Quadval VIRIDIANA FAUSTIN MD [facility] 03-25-2019 Human Papillomavirus Quadval VIRIDIANA FAUSTIN MD [facility] 03-25-2019 meningococcal polysaccharide (groups A, C, Y and W-135) diphtheria toxoid conjugate vaccine (MCV4P) VIRIDIANA FAUSTIN MD [facility] 03-25-2019 tetanus toxoid, redu berna diphtheria toxoid, and acellular pertussis vaccine, adsorbed VIRIDIANA FAUSTIN MD [facility] 10-05-2015 influenza virus vacc ine, unspecified formulation VIRIDIANA FAUSTIN MD [facility] 07-06-2014 influenza virus vacc ine, unspecified formulation VIRIDIANA FAUSTIN MD [facility] 07-06-2014 meningococcal polysaccharide (groups A, C, Y and W-135) diphtheria toxoid conjugate vaccine (MCV4P) VIRIDIANA FAUSTIN MD [facility] 07-06-2014 tetanus toxoid, redu berna diphtheria toxoid, and acellular pertussis vaccine, adsorbed VIRIDIANA FAUSTIN MD [facility] 02-25-2013 varicella virus vaccine BLANKA EN RAMIN MD [facility] 04-27-2008 diphtheria, tetanus toxoids and acellular pertussis vaccine, unspecified formulation VIRIDIANA FAUSTIN MD [facility] 04-27-2008 measles/mumps/rubell a virus vaccine VIRIDIANA FAUSTIN MD [facility] 04-27-2008 poliovirus vaccine, inactivated VIRIDIANA FAUSTIN MD [facility] 10-04-2005 influenza virus vacc ine, unspecified formulation VIRIDIANA FAUSTIN MD [facility] 06-06-2004 influenza virus vacc ine, unspecified formulation VIRIDIANA FAUSTIN MD [facility] 03-02-2004 diphtheria, tetanus toxoids and acellular pertussis vaccine, unspecified formulation VIRIDIANA FAUSTIN MD [facility] 03-02-2004 haemophilus influenz ae type b vaccine, PRP-T conjugate VIRIDIANA FAUSTIN MD [facility] 12-10-2003 measles/mumps/rubell a virus vaccine VIRIDIANA FAUSTIN MD [facility] 12-10-2003 varicella virus vaccine BLANKA FAUSTIN MD [facility] 09-17-2003 hepatitis B pediatri c vaccine VIRIDIANA FAUSTIN MD [facility] 05-26-2003 diphtheria, tetanus toxoids and acellular pertussis vaccine, unspecified formulation VIRIDIANA FAUSTIN MD [facility] 05-26-2003 haemophilus influenz ae type b vaccine, PRP-T conjugate VIRIDIANA FAUSTIN MD [facility] 05-26-2003 poliovirus vaccine, inactivated VIRIDIANA FAUSTIN MD [facility] 04-02-2003 diphtheria, tetanus toxoids and acellular pertussis vaccine, unspecified formulation VIRIDIANA FAUSTIN MD [facility] 04-02-2003 haemophilus influenz ae type b vaccine, PRP-T conjugate VIRIDIANA FAUSTIN MD [facility] 04-02-2003 poliovirus vaccine, inactivated VIRIDIANA FAUSTIN MD [facility] 02-05-2003 diphtheria, tetanus toxoids and acellular pertussis vaccine, unspecified formulation VIRIDIANA FAUSTIN MD [facility] 02-05-2003 haemophilus influenz ae type b vaccine, PRP-T conjugate VIRIDIANA FAUSTIN MD [facility] 02-05-2003 poliovirus vaccine, inactivated VIRIDIANA FAUSTIN MD [facility] 01-03-2003 hepatitis B pediatri c vaccine VIRIDIANA FAUSTIN MD [facility] 2002 hepatitis B pediatri c vaccine VIRIDIANA FAUSTIN MD [facility] Payers Date Payer Category Payer Private Health Insurance [id number] 2025 Private Health Insurance [id number] 2024 Unknown [id number] 2024 Self-pay [id number] 2024 Unknown [id number] 2002 Unknown [id number] 2.16. [id number] 2002 Unknown [id number] 2.16.8 [id number] 2002 Unknown [id number] 2.16. [id number] Private Health Insurance [id number] Unknown [id number] 2.16.8 [id number] Unknown [id number] 2.16.8 [id number] Unknown [id number] 2.16.8 [id number] Unknown [id number] 2.16.8 [id number] Unknown [id number] 2.16.8 [id number] Unknown [id number] 2.16.8 [id number] Unknown [id number] 2.16.8 [id number] Unknown [id number] 2.16.8 [id number] Unknown [id number] 2.16.8 [id number] Unknown [id number] 2.16.8 [id number] Social History Date Type Detail Facility Start: 11-07-2021 End: 06-12-2022 Tobacco smoking status PRIS Unknown if ever smoked [facility] Work Phone: Start: 2000 Sex Assigned At Female [facility] Start: 08-02-2024 End: 02-16-2025 Tobacco smoking status Ex-smoker (finding) [facility] [place] Sexual Orientation [facility] Sex Female (finding) [facility] Start: 09-27-2023 Tobacco smoking stat us NHIS Never smoked tobacco (finding) [facility] Clinical Notes 01-11-2025 to 02-24-2025 Note Date & Type Note Facility 02-24-2025 Radiology Diagnostic study note [facility] Imaging Services [address] [place] [address] Pelvic w/ Transvaginal MR#: [id number] Acct: [id number] Name: PRISCILLA WALTERS Rep #: [id number] : 2000 F 24 From: Alexa Wren MD PCP: Dr. Kitty Siddiqui, DO Status: REG CLI Study:Pelvic w/ Transvaginal Date of Exam: 02/21/25 Exam# [id number] Ordering Dr: Tayla Multani SUPPORT TEACHER-C PROCEDURE: PELVIC W/ TRANSVAGINAL 02/21/2025 REASON FOR EXAM: PELVIC PAIN TECHNIQUE: PELVIC W/ TRANSVAGINAL COMPARISON: None. FINDINGS: Measurements: Uterus: 8.1 x 4.1 x 4.6 cm for volume of 81.3 mL Endometrial Thickness: 1.0 cm Right Ovary: 3.6 x 1.4 x 2.0 cm for volume of 5.3 mL Left Ovary: 3.3 x 2.8 x 2.4 cm for volume of 11.7 mL Uterus: Anteverted. Normal contour and myometrial echotexture. Endometrium: Normal echotexture. Right ovary: Normal size and echotexture. Left ovary: Multiple follicles, at least 10 on a single image. There is a lesion containing anechoic spaces in the left ovary with peripheral vascularity identified by the technologist measuring 1.7 x 1.3 x1.7 cm, favored to represent multiple tiny follicles or corpus luteum. Cul-de-sac: Small volume pelvic free fluid. Color Doppler: Normal color flow doppler signal at both ovaries. US/Pelvic w/ Transvaginal IMPRESSION: 1. Polycystic morphology of the left ovary, correlate for clinical evidence of PCOS. 2. Small volume of pelvic free fluid is likely physiologic. Reading Location: [place] CC: ERIK Multani; Dr. Kitty Siddiqui, ~ Vp & General Counsel: Signed [facility] 02-16-2025 Evaluation note Diagnosis Onset Date Resolution Abnormal uterine bleeding acute February 16, 2025 1:40pm Elevated vitamin B12 level acute February 16, 2025 1:40pm Pelvic pain acute February 16 1:40pm Possible exposure to STI acute February 16, 2025 1:40pm Vaginal discharge acute February 162024 1:40pm [facility] Work Phone: 1(455) 292-226507-16-2025 Evaluation note* Diagnosis Onset Date Resolution Status Admit Date Abnormal uterine bleeding acute February 16, 2025 1:40pm Elevated vitamin B12 level acute February 16, 2025 1:40pm Pelvic pain acute February 16 1:40pm Possible exposure to STI acute February 16, 2025 1:40pm Vaginal discharge acute February 162024 1:40pm PCOS (polycystic ovarian syndrome) acute March 03, 2025 2:05pm [facility] Work Phone: 1(253) 258-183806-10-2025 Evaluation + Plan note Diagnostic Tests Pending * Lyme Disease Serology w/Reflex 01/11/25 * Methylmalonic Acid, Serum 01/11/25 [facility] Evaluation + Plan note Future Appointments Appointment Date:10/28/2024 08:00:00 AM Scheduled Provider:KITTY SIDDIQUI DO Location:[facility] Appointment Type:PC OV [facility] Evclhqhctt note* Diagnosis Onset Date Resolution Status Menorrhagia with irregular cycle acute [facility] Work Phone: Evaluation note* Diagnosis Onset Date Resolution Status Menorrhagia with irregular cycle acute Possible exposure to STD non eactive Chest pain acute Elevated lipoprotein A level acute Urinary tract infection with hematuria acute [facility] Work Phone: Evaluation noteNo assessment information available [facility] Work Phone: Hospital course Narrative No data available for this section [facility] Hospital Discharge instructions No data available for this section [facility] Progress note No data available for this section [facility] Reason for referral (narrative)No reason for referral information available[facility] Work Phone: Chief Complaint and Reason for Visit 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 Visit Menorrhagia with irr egular cycle Chief Complaint bleeding x2 mos whil e on BC, no missed doses elevated lipoproteins/ okayed by STRATEGIC CLIENT EXECUTIVE CONCERN FOR UTI Reason for Visit Menorrhagia with irr egular cycle Possible exposure to STD Chest pain Elevated lipoprotein A level Urinary tract infection with hematuria Chief Complaint bleeding x2 mos whil e on BC, no missed doses elevated lipoproteins/ okayed by STRATEGIC CLIENT EXECUTIVE CONCERN FOR UTI DYSPNEA Reason for Visit Menorrhagia with irr egular cycle Possible exposure to STD Chest pain Elevated lipoprotein A level Urinary tract infection with hematuria Chief Complaint Admit Date TRANSIENT ALTERED AWARENESS January 31, 025 9:23am Chief Complaint Admit Date TRANSIENT ALTERED AWARENESS January 31 025 9:23am AUB/pelvic pain February 16, 2025 1:40 pm Chief Complaint Admit Date TRANSIENT ALTERED AWARENESS January 31, 025 9:23am AUB/pelvic pain February 16, 2025 1:40 pm INT LAB ORDERS February 16, 2025 2:57 pm PELVIC PAIN February 21, 2025 2:12 pm Reason for Visit Admit Date Abnormal uterine bleeding February 16 1:40pm Elevated vitamin B12 level February 16 1:40pm Pelvic pain February 16, 2025 1:40 pm Possible exposure to STI February 16, 2025 1:40pm Vaginal discharge February 16, 2025 1:40 pm Chief Complaint Admit Date TRANSIENT ALTERED AWARENESS January 31, 025 9:23am AUB/pelvic pain February 16, 2025 1:40 pm INT LAB ORDERS February 16, 2025 2:57 pm PELVIC PAIN February 21, 2025 2:12 pm US F/U DISCUSS BC March 03, 2025 2:05 pm Reason for Visit Admit Date Abnormal uterine bleeding February 16 1:40pm Elevated vitamin B12 level February 16 1:40pm Pelvic pain February 16, 2025 1:40 pm Possible exposure to STI February 16, 2025 1:40pm Vaginal discharge February 16, 2025 1:40 pm PCOS (polycystic ovarian syndrome) March 03, 2025 2:05pm Summary Purpose Family History No Family History [...] this section No data available for this sectionGoals may be documented in an alternate section No data available for this sectionGoals may be documented in an alternate sectionGoals may be documented in an alternate sectionGoals may be documented in an alternate sectionGoals may be documented in an alternate sectionGoals may be documented in an alternate section INFORMATION SOURCE (unrecogn ized section and content) DATE CREATED AUTHOR 12/15/2021 [facility] DATE CREATED AUTHOR AUTHOR'S ORGANIZ ATION 01/18/2025 [facility] DATE CREATED AUTHOR AUTHOR'S ORGANIZ ATION 03/15/2025 [facility] DATE CREATED AUTHOR AUTHOR'S ORGANIZ ATION 03/19/2025 [facility] Patient Care team informatio n (unrecognized section and content) Team Status: Active Member Role/Relationship Status Dates Dr. Kitty Siddiqui DO Primary Care Provider Active Team Status: Inactive Member Role/Relationship Status Dates Dr. Viridiana Faustin MD Attending Provider Active S tart: January 31, 2025 End: January 31, 2025 Dr. Viridiana Faustin MD Referring Provider Active S tart: January 31, 2025 End: January 31, 2025 Dr. Kitty Siddiqui DO Primary Care Provider Active Start: January 31, 2025 End: January 31, 2025 Team Status: Inactive Member Role/Relationship Status Dates Dr. Kitty Siddiqui DO Primary Care Provider Active Start: February 16, 2025 End: February 16, 2025 Dr. Kitty Siddiqui DO Referring Provider Active Start: February 16, 2025 End: February 16, 2025 Tayla Multani SUPPORT TEACHER-C Attending Provider Active Start: February 16, 2025 End: February 16, 2025 Team Status: Inactive Member Role/Relationship Status Dates Dr. Kitty Siddiqui DO Primary Care Provider Active Start: February 16, 2025 End: February 16, 2025 Tayla Multani SUPPORT TEACHER-C Attending Provider Active Start: February 16, 2025 End: February 16, 2025 Tayla Multani SUPPORT TEACHER-C Referring Provider Active Start: February 16, 2025 End: February 16, 2025 Team Status: Active Member Role/Relationship Status Dates Dr. Kitty Siddiqui DO Primary Care Provider Active Start: February 21, 2025 Tayla Multani SUPPORT TEACHER-C Attending Provider Active Start: February 21, 2025 Tayla Multani SUPPORT TEACHER-C Referring Provider Active Start: February 21, 2025 Team Status: Inactive Member Role/Relationship Status Dates Dr. Kitty Siddiqui DO Primary Care Provider Active Start: February 21, 2025 End: February 21, 2025 Tayla Multani SUPPORT TEACHER-C Attending Provider Active Start: February 21, 2025 End: February 21, 2025 Tayla Multani SUPPORT TEACHER-C Referring Provider Active Start: February 21, 2025 End: February 21, 2025 Team Status: Inactive Member Role/Relationship Status Dates Dr. Kitty Siddiqui DO Primary Care Provider Active Start: March 03, 2025 End: March 03, 2025 Dr. Kitty Siddiqui DO Referring Provider Active Start: March 03, 2025 End: March 03, 2025 Tayla Multani SUPPORT TEACHER-C Attending Provider Active Start: March 03, 2025 End: March 03, 2025 Team Status: Inactive Member Role/Relationship Status Dates Dr. Kitty Siddiqui DO Primary Care Provider Active Start: March 04, 2025 End: March 04, 2025 Tayla Multani SUPPORT TEACHER-C Attending Provider Active Start: March 04, 2025 End: March 04, 2025 ERIK Villafana Referring Provider Active Start: March 04, 2025 End: March 04, 2025 FOR RECORDS PERTAINING TO PATIENTS WHO ARE [...] BE BASED ON THE PRIMARY CLINICAL RECORDS. [facility] [employer] [facility]. provides no warranty or guarantee of the accuracy or completeness of information in this document.
[2025-04-15 22:39] VITALS: BP 119/80; PULSE 55; RESP 16; TEMP 36.6; O2SAT 100
[2025-04-15] MEDS: Rabies Immune Globulin/PF 300 UNIT/ML, 5 ML VIAL 1180 UNIT IM (23:15)
--- NOTE | 2025-04-15 23:50 | ED.RN ---
This RN notified Dr. Dajuan MD that the patient had a rash around the area of her injection site from the rabies immune globulin. immediately at bedside to reassess the patient. Meds ordered and administered, patient observed and later re-evaluated by this RN and Dr. Dajuan MD
[2025-04-16 00:39] VITALS: BP 122/84; PULSE 53; RESP 16; TEMP 36.7; O2SAT 100
== END 2025-04-16 00:43 | disposition home or self-care (01) ==
PROVIDERS: Emergency Provider Emergency Medicine; PCP Student in an Organized Health Care Education/Training Program; Visit Provider Emergency Medicine
DX: S61.451A Open bite of right hand, initial encounter (principal); Z87.891 Personal history of nicotine dependence; Z20.3 Contact with and (suspected) exposure to rabies; Z23 Encounter for immunization; S61.531A Puncture wound without foreign body of right wrist, initial encounter; W55.01XA Bitten by cat, initial encounter; Y92.89 Other specified places as the place of occurrence of the external cause
CPT/HCPCS: 90471; 90675; 90715; 99285; 90375

== ENCOUNTER 2025-04-18 20:14 | Outpatient (CLI) | payer OTHER, SELFPAY ==
[2025-04-18 20:36] VITALS: BP 112/70; PULSE 100; RESP 19; TEMP 36.7; O2SAT 97; BMI 25.9
[2025-04-18 20:38] VITALS: BP 112/70; PULSE 100; RESP 19; TEMP 36.7; O2SAT 97
== END 2025-04-18 20:48 | disposition home or self-care (01) ==
LOC: ED 21:02
PROVIDERS: PCP Student in an Organized Health Care Education/Training Program; Visit Provider Emergency Medicine
DX: Z23 Encounter for immunization (principal)
CPT/HCPCS: 90675

== ENCOUNTER 2025-04-22 20:09 | Outpatient (CLI) | payer OTHER, SELFPAY ==
[2025-04-22 20:10] VITALS: BP 123/73; PULSE 74; RESP 16; TEMP 36.8; O2SAT 100
[2025-04-22 20:50] VITALS: BP 112/56; PULSE 78; RESP 14; TEMP 36.6; O2SAT 100
--- OUTSIDE RECORDS SUMMARY | 2025-04-22 20:56 | XMS RPT_ITS | CCD ---
Author Organization [facility] Care Team Providers Care Division Head Name Role Phone Cogar BRAID CUTTER Rosa N Unavailable Cogar BRAID CUTTER Rosa N Unavailable [phone] [place] SOFTWARE QA SYSTEM SPECIALIST, SOFTWARE QA SYSTEM SPECIALIST-C Alia Primary Care Provider [place] SOFTWARE QA SYSTEM SPECIALIST, SOFTWARE QA SYSTEM SPECIALIST-C Alia Referring Provider Yuriy SOFTWARE QA SYSTEM SPECIALIST, SOFTWARE QA SYSTEM SPECIALIST-C Laura Attending Provider [place] SOFTWARE QA SYSTEM SPECIALIST, SOFTWARE QA SYSTEM SPECIALIST-C Alia Primary Care Provider [place] SOFTWARE QA SYSTEM SPECIALIST, SOFTWARE QA SYSTEM SPECIALIST-C Alia Referring Provider Yuriy SOFTWARE QA SYSTEM SPECIALIST, SOFTWARE QA SYSTEM SPECIALIST-C Laura Attending Provider Dr. Murali Bartlett Attending Provider Care Physician, No Primary Primary Care Provider Unavailable Care Physician, No Primary Referring Provider Un available Zeeshan BARGER, CHARBEL Cha Attending Provider KITTY SIDDIQUI DO Primary Care Physician KITTY SIDDIQUI DO Primary Care Unavailable KITTY SIDDIQUI DO Attending Unavailable VIRIDIANA FAUSTIN MD Attending Unavailable KITTY SIDDIQUI DO Primary Care Unavailable Dr. Viridiana Faustin MD Attending Provider Unavailab Dr. Viridiana Mcmullen MD Referring Provider Unavailab Dr. Kitty Arreaga DO Primary Care Provider [phone] Dr. Kitty Siddiqui DO Referring Provider Tayla Jacobs Attending Provider [phone] Tayla Jacobs Referring Provider [phone] VIRIDIANA FAUSTIN MD Attending Unavailable KITTY SIDDIQUI DO Primary Care Unavailable Dr. Pola Graff MD Emergency Provider Tayla Multani Referring Unavailable DilillianaeyKitty M Primary Care Unavailable Tayla Multani Attending Unavailable Tayla Multani Attending Unavailable Tayla Multani Referring Unavailable Ditchey, Kitty M Primary Care Unavailable Viridiana Faustin Attending Unavailable Viridiana Faustin Referring Unavailable Ditchey, Kitty M Primary Care Unavailable Panda Salomon Attending Unavailable Panda Salomon Referring Unavailable Care Physician, No Primary Primary Care Unava ilable Pola Graff Attending Unavailable Ditchey, Kitty M Primary Care Unavailable GraffPola Attending Unavailable Ditchey, Kitty M Primary Care Unavailable Tayla Multani Referring Unavailable Tayla Multani Attending Unavailable Ditchey, Kitty Starla Primary Care Unavailable Panda Salomon Attending Unavailable Care Physician, No Primary Primary Care Unava ilable Care Physician, No Primary Referring Unava ilable Ditchey, Kitty M Primary Care Unavailable Ditchey, Kitty M Referring Unavailable Tayla Multani Attending Unavailable Tayla Multani Attending Unavailable Ditchey, Kitty M Primary Care Unavailable Ditchey, Kitty M Referring Unavailable Eric Byers Attending Unavailable Care Physician, No Primary Primary Care Unava ilable Care Physician, No Primary Referring Unava ilable Allergies Allergy Classification Reported Allergen(s) Allergy Type Date of Onset Reaction(s) Facility (2 sources) rabies immune globulin, human Drug Allergy 04-16-2025 Rash [facility] (1 source) rabies immune globulin Drug allergy (disorder) 04-18-2025 [facility] Repository Medications Current Medications Medication Drug Class(es) Dates Sig (Normalized) Sig (Original) amoxicillin 875 mg / clavulanate 125 mg oral tablet (20 sources) Penicillin-class Antibacterial Start: 04-15-2025 take 1 tablet by mouth every twelve hours Amoxicillin-Pot Clavulanate 875-125 mg tablet Active 875 mg PO Q12H 8 0 April 15, 2025 12:00am Start: 08-28-2022 End: 09-07-2022 Amoxicillin-Pot Clavulanate 875-125 mg tablet Discontinued 1 {tbl} PO Q12H 20 10 0 August 28, 2022 1:00am September 06, 2022 1:00am September 07, 2022 1:12am Acute sinusitis, unspecified Start: 08-27-2019 End: 09-06-2019 Amoxicillin-Pot Clavulanate (Augmentin) 875-125 mg tablet Discontinued 1 {tbl} PO Q12H 20 10 August 27, 2019 1:00am September 05, 2019 1:00am September 06, 2019 1:08am Acute sinusitis, unspecified ashwagandha 450 mg oral capsule (3 sources) Start: 08-02-2024 take 1 capsule by mouth once ashwagandha 450 mg oral capsule 450 mg Dose = 1 cap(s), Oral, Once, 0 Refill(s) Start Date: 08/02/24 Status: Ordered Repeat number: 1 biotin 5 mg oral capsule (7 sources) Start: 03-03-2025 take 1 capsule by mouth once daily Biotin 5 mg capsule Active 5 mg PO daily March 03, 2025 12:00am Start: 08-02-2024 biotin 300 mcg oral tablet Dose : 600 mcg = 2 tab(s), Oral, qDay, # 60 tab(s), 0 Refill(s) Start Date: 08/02/24 Status: Ordered Quantity: 60.0 Unit: tab(s) Repeat number: 1 calcium ascorbate 500 mg oral tablet (4 sources) Start: 03-03-2025 take 1 tablet by mouth once daily Ascorbate Calcium (Vitamin C) 500 mg tablet Active 500 mg PO daily March 03, 2025 12:00am cholecalciferol 0.25 mg oral capsule (4 sources) Vitamin D Start: 03-03-2025 take 1 capsule by mouth once daily Cholecalciferol (Vitamin D3) 250 mcg (10,000 unit) capsule Active 250 ug PO daily March 03, 2025 12:00am diphenhydrAMINE hydrochloride 25 mg oral capsule (2 sources) Histamine-1 Receptor Antagonist Start: 04-16-2025 take 1 capsule by mouth every six hours Diphenhydramine Hcl (Benadryl) 25 mg capsule Active 25 mg PO EVERY 6 HOURS 14 April 16, 2025 12:45am famotidine 20 mg oral tablet (2 sources) Histamine-2 Receptor Antagonist Start: 04-16-2025 take 1 tablet by mouth twice daily Famotidine (Pepcid) 20 mg tablet Active 20 mg PO TWICE A DAY 7 April 16, 2025 12:00am Kechi (Nk) (3 sources) Start: 02-16-2025 Kechi (Nk) Active February 16, 2025 12:00am Vitamin B12 50 [...] D3 (3 sources) Start: 08-02-2024 Vitamin D3 Dose : 10 mcg = 1 tab(s), Oral, Daily, 0 Refill(s) Start Date: 08/02/24 Status: Ordered Repeat number: 1 Completed/Discontinued Medications Medication Drug Class(es) Dates Sig (Normalized) Sig (Original) amoxicillin 500 mg oral capsule (8 sources) Penicillin-class Antibacterial Start: 09-27-2023 End: 10-02-2023 take 1 capsule by mouth every eight hours Amoxicillin 500 mg capsule Discontinued 500 mg PO Q8H 15 5 0 September 27, 2023 1:00am October 01, 2023 1:00am October 02, 2023 1:05am azithromycin 250 mg oral tablet (8 sources) Macrolide Antimicrobial Start: 08-03-2024 End: 02-16-2025 Azithromycin 250 mg tablet Discontinued 0 PO .COMPLEX 6 0 August 03, 2024 1:00am February 16, 2025 1:51pm For 250 mg dose pack: take 500 mg today (day 1), then 250 mg for 4 days (days 2-5) PO; START ON 08/06/24 ONLY IF NO IMPROVEMENT Levonorgestrel-Ethi nyl Estrad (20 sources) Progestin, Estrogen, Progestin-containin g Intrauterine Device Start: 04-17-2022 End: 02-19-2024 take 1 tablet by mouth once daily Levonorgestrel-Eth inyl Estrad (Altavera (28)) 0.15-0.03 mg tablet Discontinued 1 {tbl} PO DAILY 84 4 April 17, 2022 12:00am February 19, 2024 3:13pm active pills for continuous cycling Start: 04-17-2022 Levonorgestrel -Ethinyl Estrad (Altavera (28)) 0.15-0.03 mg tablet Active 1 TABLET PO DAILY 84 April 16, 2022 11:00pm Start: 11-07-2021 End: 04-17-2022 take 1 tablet by mouth once daily Levonorgestrel-Ethinyl Estrad (Aviane) 0.1-20 mg-mcg tablet Discontinued 1 {tbl} PO daily 84 November 07, 2021 2:59pm April 17, 2022 1:10pm Start: 10-24-2021 End: 11-07-2021 take 1 tablet by mouth once daily Levonorgestrel-Ethinyl Estrad (Aviane) 0.1-20 mg-mcg tablet Discontinued 1 {tbl} PO daily 84 0 October 24, 2021 2:18pm November 07, 2021 2:59pm Start: 10-24-2021 End: 11-07-2021 take 1 tablet by mouth once daily Levonorgestrel-Ethinyl Estrad (Aviane) 0.1-20 mg-mcg tablet Discontinued 1 TABLET PO daily 84 October 24, 2021 1:18pm November 07, 2021 1:59pm Start: 10-24-2021 End: 11-07-2021 take 1 tablet by mouth once daily Levonorgestrel-Ethinyl Estrad (Aviane) 0.1-20 mg-mcg tablet Discontinued 1 TABLET PO daily 84 October 24, 2021 2:18pm November 07, 2021 2:59pm Start: 08-28-2020 End: 10-24-2021 take 1 tablet by mouth once daily Levonorgestrel-Ethinyl Estrad (Aviane) 0.1-20 mg-mcg tablet Discontinued 1 {tbl} PO daily 84 4 August 28, 2020 4:36pm October 24, 2021 [...] or chew oseltamivir 75 mg oral capsule (13 sources) Neuraminidase Inhibitor Start: 09-03-2017 End: 09-08-2017 take 1 capsule by mouth twice daily Oseltamivir (Tamiflu) 75 mg capsule Discontinued 75 mg PO TWICE A DAY 10 5 0 September 03, 2017 1:00am September 07, 2017 1:00am September 08, 2017 1:06am phenazopyridine hydrochloride 100 mg oral tablet (13 sources) Start: 06-13-2020 End: 08-28-2020 take 1 [...] mg / trimethoprim 160 mg oral tablet (13 sources) Dihydrofolate Reductase Inhibitor Antibacterial, Sulfonamide Antimicrobial Start: 12-10-2017 End: 08-27-2019 Sulfamethoxazole-Tr imethoprim 800-160 mg tablet Discontinued 1 {tbl} PO TWICE A DAY 10 0 December 10, 2017 12:00am August 27, 2019 2:51pm Start: 12-10-2017 End: 08-27-2019 take 1 tablet by mouth twice daily Sulfamethoxazole-Trimethoprim Discontinu ed 1 TABLET PO TWICE A DAY December 09, 2017 11:00pm August 27, 2019 1:51pm Problems Active Problems Problem Classification Problem Date Documented Date Episodic/Chronic Abdominal pain (13 sources) Pain in pelvis; Translations: [Pelvic and perineal pain] Onset: 02-25-2025 02-16-2025 Episodic Allergic reactions (2 sources) Allergic reaction to drug; Translations: [Allergy, unspecified, initial encounter] 04-16-2025 Episodic Cardiac dysrhythmias (20 sources) Tachycardia; Translations: [Tachycardia, unspecified] 05-15-2022 Episodic Conditions associated with dizziness or vertigo (5 sources) Lightheadedness; Translations: [Dizziness and giddiness] Onset: 02-15-2025 10-28-2024 Episodic Disorders of lipid metabolism (14 sources) Hyperlipoproteinemia; 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 Immunizations and screening for infectious disease (17 sources) Contact with and (suspected) exposure to infections with a predominantly sexual mode of transmission; Translations: [Contact with or exposure to venereal diseases] Episodic Inflammation; infection of eye (except that caused by tuberculosis or sexually transmitteddisease) (8 sources) Blepharitis of right upper eyelid; Translations: [Unspecified blepharitis right upper eyelid] 08-03-2024 Episodic Menstrual disorders (18 sources) Menometrorrhagia; Translations: [Excessive and frequent menstruation with irregular cycle] Chronic Nonspecific chest pain (14 sources) Chest pain; Translations: [Chest pain, unspecified] Episodic Open wounds of extremities (3 sources) Cat bite - wound; Translations: [Open bite of right hand, initial encounter] Onset: 04-19-2025 04-15-2025 Episodic Other endocrine disorders (6 sources) Polycystic ovary syndrome; Translations: [Polycystic ovarian syndrome] 03-03-2025 Chronic Other endocrine disorders (1 source) Polycystic ovarian syndrome; Translations: [Polycystic ovarian syndrome] Onset: 03-14-2025 Chronic Other female genital disorders (12 sources) Abnormal uterine bleeding; Translations: [Abnormal uterine and vaginal bleeding, unspecified] 02-16-2025 Chronic Other female genital disorders (1 source) Abnormal uterine and vaginal bleeding, unspecified; Translations: [Abnormal uterine and vaginal bleeding, unspecified] Onset: 02-21-2025 Chronic Other female genital disorders (12 sources) Vaginal discharge; Translations: [Other specified noninflammatory disorders of vagina] 02-16-2025 Episodic Other female genital disorders (1 source) Other specified noninflammatory disorders of vagina; Translations: [Other specified noninflammatory disorders of vagina] Onset: 02-16-2025 Episodic Other nervous system disorders (2 sources) Impaired cognition 10-28-2024 Episodic Other screening for suspected conditions (not mental disorders or infectious disease) (12 sources) Increased vitamin B; Translations: [Other specified abnormal findings of blood chemistry] 02-16-2025 Episodic Other upper respiratory infections (18 sources) Upper respiratory infection; Translations: [Acute upper respiratory infection, unspecified] Onset: 04-08-2017 04-08-2017 Episodic Otitis media and related conditions (8 sources) Acute right otitis media; Translations: [Otitis media, unspecified, right ear] 08-28-2022 Episodic Residual codes; unclassified (1 source) Transient alteration of awareness; Translations: [Transient alteration of awareness] Onset: 02-03-2025 Episodic Syncope (3 sources) Near syncope; Translations: [Syncope and collapse] Onset: 02-15-2025 10-28-2024 Episodic Urinary tract infections (14 sources) Urinary tract infectious disease; Translations: [Urinary tract infection, site not specified] Episodic Past or Other Problems Problem Classification Problem Date Documented Da te Episodic/Chronic Malaise and fatigue (9 sources) Fatigue; Translations: [Other fatigue] Onset: 07-23-2024 06-24-2024 Episodic Other ear and sense organ disorders (2 sources) Otalgia, unspecified ear; Translations: [Otalgia, unspecified ear] Onset: 04-08-2017 04-08-2017 Episodic Results Test Name Value Interpretation Reference Range Facility Emergency Department Summary on 04-15-2025 Emergency Department Summary [facility] Medical Records Department [address] [place] [address] Emergency Department Summary 04/15/25 MR#: [id number] Acct: [id number] Name: PRISCILLA WALTERS Rep #: [id number] : 2000 24 From: Pola Graff MD PCP: Dr. Kitty Siddiqui DO Status:REG ER Location: ED ADDENDUM by Dr. Pola Graff MD on 04/16/25 at 0037 Patient was reassessed at 0035. Her rash has improved. She is no longer itching. She was discharged prescription for Benadryl and Pepcid 04/16/25 0037 Cosigner Signature (if applicable): cc: Dr. Kitty Siddiqui, * Signed ADDENDUM by Dr. Pola Graff MD on 04/15/25 at 2340 Prior to patient leaving she noted to have a rash at the injection site right wrist. It is slightly pruritic. Will treat with H1 and H2 adriana and observe. 04/15/25 2340 Cosigner Signature (if applicable): cc: Dr. Kitty Siddiqui, * Signed HPI History of Present Illness Chief Complaint: Bite Detail of Chief Complaint: Cat bite thenar and hypothenar eminence right hand Informant: patient Onset/Context/Timing Onset: Hours Mechanism/Context: other (Cat bite right hand) Location of pain/injuries: Right foot Quality of Pain: - (Not applicable) Location: [place] right hand is previously described Current Severity: Not applicable Maximum Severity: Pain from the bite Worsened by: Apparently cat was ill and may have been bitten by a raccoon Relieved by: Nothing Associated Symptoms Associated Symptoms: Negative for Parasthesias, Weakness, Loss of function, Inability to ambulate, Loss of consciousness or Amnesia Narrative Narrative: Patient is a 24-year-old female. She presents from veterinary office because she was bit by a cat. Initially I was unaware that the cat was being euthanized because there was concern the cat had rabies. When asked if the cat belonged to her she informing that it was a clients cat. She had her uniform on. I presumed that the cat was vaccinated. After nurse gave the patient the medication I initially ordered she asked when she would receive her rabies shot. After further questioning it was determined that the cat apparently had been an outdoor cat. The vaccination history of the cat was unknown. The cat apparently was bitten by a raccoon. The cat was doing very poorly and was euthanized. The brain was sent to [facility] to test for rabies. Tetanus Immunization: Unknown Prior similar symptoms: No Recent Illness/Hospitalizati on: No PFSH PFS Medical History Blepharitis of right upper eyelid Acute pharyngitis, unspecified Urinary tract infection with hematuria Elevated lipoprotein A level Home Medications ???Medication ???Instructions ???Recorded ???Last Taken ???Type ascorbate calcium (vitamin C) 500 500 mg PO QDAY 03/03/25 Unknown H istory mg tablet biotin 5 mg capsule 5 mg PO QDAY 03/03/25 Unknown Hist ory cholecalciferol (vitamin D3) 250 250 mcg PO QDAY 03/03/25 Unknown H istory mcg (10,000 unit) capsule amoxicillin 875 mg-potassium 875 mg PO Q12H #8 TABLETS 04/15/25 Unknown Rx clavulanate 125 mg tablet Allergy/AdvReac Type Severity Reaction Status Date / Time No Known Allergies Allergy Verified 04/15/25 20:40 Family History Uncle CAD (coronary artery disease) Myocardial infarction, Onset Age: 53 Social History adopted: No household members: family number of children: 0 current occupational status: unemployed and student 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 ROS ROS ED Constitutional Constitutional ED: Denies chills, fever(s), subjective, sweats or weight loss Musculoskeletal Musculoskeletal: Denies arthralgias or myalgias Integumentary Reports other Details: Puncture wounds thenar and hypothenar eminence right hand ; Denies rash Neurologic Neurologic: Denies paresthesias or weakness Hematologic/Lymphatic Hematologic/Lymphatic : Denies easy bruising EXAM Physical Exam Const Vital Signs: 04/15/25 20:39 04/15/25 22:39 Temperature 98.2 F 98 F Temperature Source Temporal Pulse Rate 60 55 L Respiratory Rate 18 16 Blood Pressure 131/78 H 119/80 Blood (more content not included)... Normal [facility] DHEA Sulfateon 03-08-2025 DHEA SULFATE 116.0 ug/dL Normal 110.0-431.7 [facility] Comment on above: Order Comment: N Performed By: #### L 501.9985, L3300.1500, L3400.4800, L3100.5055, L3100.5400 ####[facility] [id number] [place], [address] PROLACTIN 4465on 03-08-2025 PROLACTIN 20.4 ng/mL Normal 4.8-33.4 [facility] Comment on above: Performed By: #### L 501.9985, L3300.1500, L3400.4800, L3100.5055, L3100.5400 ####[facility] [address] [place], [address] Testosterone Freeon 03-08-20 25 TESTOSTER FREE 0.3 pg/mL Normal 0.0-4.2 [facility] Comment on above: Result Comment: Perf ormed at: - [facility] [address] [id number] Park Recreation Manager: Clayton Bashir PhD, Phone: [phone] Performed at: - [facility] [address] [id number] Park Recreation Manager: Payton Amezquita MD, Phone: [phone] Performed By: #### L 501.9985, L3300.1500, L3400.4800, L3100.5055, L3100.5400 ####[facility] [id number] [place], [address] FSH and LHon 03-04-2025 FSH 7.9 mIU/mL Normal [facility] Comment on above: Result Comment: FEMA LE: Follicular: 1.4 - 18.1 mIU/mL Midcycle: 3.4 - 33.4 mIU/mL Luteal: 1.5 - 9.1 mIU/mL Post Menopause: 23.0 - 116.3 mIU/mL MALE: 1.4 - 18.1 mIU/mL Performed By: #### L 501.9985, L3300.1500, L3400.4800, L3100.5055, L3100.5400 ####[facility] [address] [place], [address] LH 5.5 mIU/mL Normal [facility] Comment on above: Result Comment: FEMA LE: Follicular: 1.9-12.5 mIU/mL Midcycle: 8.7-76.3 mIU/mL Luteal: 0.5-16.9 mIU/mL Post Menopause: 15.9-54.0 mIU/mL MALE: 20-70 Years: 1.5-9.3 mIU/mL >70 Years: 3.1-34.6 mIU/mL Performed By: #### L 501.9985, L3300.1500, L3400.4800, L3100.5055, L3100.5400 ####[facility] [address] [place], [address] Hemoglobin A1con 03-04-2025 HbA1c (Bld) [Mass fraction] 5.5 % Normal <=5.6 [facility] Comment on above: Result Comment: Norm al < 5.7 % Prediabetic 5.7 - 6.4 % Diabetic >or= 6.5 % Please note range changes. Performed By: #### L 501.9985, L3300.1500, L3400.4800, L3100.5055, L3100.5400 ####[facility] [address] [place], [place], [id number] Hemoglobin A1c percentageOrd ered By: Tayla Multani on 03-04-2025 HbA1c (Bld) [Mass fraction] 5.5 % <5.7 [facility] Comment on above: Normal < 5.7 % Predi abetic 5.7 - 6.4 % Diabetic >or= 6.5 % Please note range changes. LH ser/plasOrdered By: Gi Multani on 03-04-2025 Lutropin Qn 5.5 m[IU]/mL [facility] Comment on above: FEMALE:Follicular: 1 .9-12.5 mIU/mLMidcycle: 8.7-76.3 mIU/mLLuteal: 0.5-16.9 mIU/mLPost Menopause: 15.9-54.0 mIU/mLMALE:20-70 Years: 1.5-9.3 mIU/mL>70 Years: 3.1-34.6 mIU/mL Serum or plasma free testost erone measurement (mass/volume)Ordered By: Tayla Multani on 03-04-2025 Testosterone Free [Mass/Vol] 0.3 pg/mL 0.0-4.2 [facility] Comment on above: Performed at: [address] [place] [id number] Director: Clayton Bashir PhD, Phone: [phone] at: [address] [id number] Director: Payton Amezquita MD, Phone: [phone] Serum or plasma prolactin me asurement (mass/volume)Ordered By: Tayla Multani on 03-04-2025 Prolactin [Mass/Vol] 20.4 ng/mL 4.8-33.[address] [facility] Senior Writer Office Visit Reporton 03-03-2025 Senior Writer Office Visit Report [facility] [address], [address] [place] [address] OFFICE VISIT Date of Service: 03/03/25 MR#: [id number] Acct: [id number] Name: PRISCILLA WALTERS Rep #: [id number] : 2000 Provider: ERIK [address] Age/Sex: 24/F Location: [facility] Status: Signed Intake Vital Signs 02/16/25 13:50 03/03/25 14:24 Height 5 ft 2 in 5 ft 2 in Weight: 132 lb 132 lb BMI 24.1 24.1 BP 118/78 136/91 H Intake Visit Reasons: US F/U DISCUSS Education Professor Required: No Is patient in pain?: No [...] occupational status: unemployed and student 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 [facility] US F/U DISCUSS BC Details: PRISCILLA WALTERS [...] Today E28.2 (more content not included)... Normal [facility] Pelvic w/ Transvaginalon Pelvic w/ Transvaginal [facility] [address] [place] [id number] Pelvic w/ Transvaginal MR#: [id number] Acct: [id number] Name: PRISCILLA WALTERS Rep #: [id number] : 2000 F 24 From: Gustavo Wren MD PCP: Dr. Kitty Siddiqui, Status: REG CLI Study: Pelvic w/ Transvaginal Date of Exam: 02/21/25 Exam# [id number] Ordering Dr: Tayla Multani SOFTWARE QA SYSTEM SPECIALIST-C PROCEDURE: PELVIC W/ TRANSVAGINAL 02/21/2025 REASON FOR [...] free fluid is likely physiologic. Reading Location: [id number] CC: ERIK Multani; Dr. Kitty Siddiqui DO Hardboard Grinder: Signed Normal [facility] Chlamydia/GC JERED aptimaon CHLAMY,NUC ACID Negative Normal Negative [facility] Comment on above: Performed By: #### L 0.1800, .1999, M1.3200 #### [facility] [address] [place], [place], [address] GC BY NUC ACID Negative Normal Negative [facility] Comment on above: Result Comment: Perf ormed at: =G - [facility] [address] [id number] Park Recreation Manager: Tangela Rawls MD, Phone: [phone] Performed By: #### L 0.1800, .1999, M100.3200 #### [facility] [address] [place], [address] Genital Culture Comprehensiv galina 02-18-2025 VAC Reason for Exam: vaginal discharge Normal vaginal sandeep isolated. No yeast, Gardnerella, Neisseria or beta-hemolytic Streptococcus isolated. Normal [facility] Comment on above: Performed By: #### L 7000.1800, .1999, M100.3200 #### [facility] [address] [place], [address] Chlamydia trachomatis rRNA d etection by probe and target amplification methodOrdered By: Tayla Multani on 02-16-2025 C. trachomatis rRNA JERED+probe Ql (Unsp spec) Negative Negative [facility] Genital cultureOrdered By: Ashlee Multani on 02-16-2025 Source specific culture Neisseria or beta-hemolytic Streptococcus isolated. [facility] Gram Stainon 02-16-2025 GS Reason for Exam: vaginal discharge Gram Stain 2+ White Blood Cells 4+ Gram positive rods No Gram negative diplococci Score = 0 Interpretation: 0-3 Normal, 4-6 Intermediate, 7-10 Positive BV Normal [facility] Comment on above: Performed By: #### L 7000.1800, M100.2000, M100.3200 #### [facility] [address] [place], [place], [id number] Gram stainOrdered By: Tayla Multani on 02-16-2025 Microscopic observation Gram stain Nom (Unsp spec) [facility] Laboratory - Chemistry and C hemistry - challengeOrdered By: Tayla Multani on 02-16-2025 Bilirubin Ql (U) Negative [facility] Glucose Ql (U) Negative [facility] Ketones Ql (U) Negative [facility] pH (U) 8 [pH] [facility] Specific gravity (U) [Rel density] 1.030 [facility] Urobilinogen (U) [Mass/Vol] Negative [facility] HCG ( test) Ql (U) Negative [facility] Laboratory - Hematology and Cell countsOrdered By: Tayla Multani on 02-16-2025 Hemoglobin Ql (U) Negative [facility] Laboratory - Specimen inform ationOrdered By: Tayla Multani on 02-16-2025 Clarity (U) Clear [facility] Color (U) Yellow [facility] Laboratory - UrinalysisOrder ed By: Tayla Multani on 02-16-2025 Nitrite Ql (U) Negative [facility] Protein Ql (U) Negative [facility] Neisseria gonorrhoeae nuclei c acid detection by amplified probe techniqueOrdered By: Tayla Multani on 02-16-2025 N. gonorrhoeae DNA JERED+probe Ql (Unsp spec) Negative Negative [facility] Comment on above: Performed at: =[facility] Melba álvarez [address] [id number] Director: Tangela Rawls MD, Phone: [phone] No Panel InformationOrdered By: Tayla Multani on 02-16-2025 POC Trichomonas (Rapid) Negative [facility] Urine Leukocytes Negatve [facility] Urine Non-Hemolyzed Blood [facility] Senior Writer Office Visit Reporton 02-16-2025 Senior Writer Office Visit Report [facility] [address], [address] [place] [address] OFFICE VISIT Date of Service: 02/16/25 MR#: [id number] Acct: [id number] Name: PRISCILLA WALTERS Rep #: [id number] : 2000 Provider: ERIK Lambert Age/Sex: 24/F Location: [facility] Status: Signed Intake Vital Signs 06/24/24 08:24 02/16/25 13:50 Height 5 ft 2 in 5 ft 2 in Weight: 132 lb BMI 24.1 BP 118/78 Intake Visit Reasons: AUB/pelvic pain Education Professor Required: No Is patient in pain?: No [...] occupational status: unemployed and student 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 Normal [facility] T4 Free Directon 02-16-2025 T4 FREE DIRECT 1.00 ng/dL Normal 0.76-1.46 [facility] Comment on above: Performed By: #### L 503.0106, L506.0400, L501.9520 ####[facility] [address] [place], [place], [id number] T4 freeOrdered By: Tayla oneal on 02-16-2025 Free T4 [Mass/Vol] 1.00 ng/dL 0.76-1.46 [facility] TSH DL <= 0.005 mIU/L QnOrde red By: Tayla Multani on 02-16-2025 TSH Qn 1.370 uIU/mL 0.300-4.200 [facility] Thyroid Stim Hormone (TSH)on 02-16-2025 TSH 1.370 uIU/mL Normal 0.300-4.200 [facility] Comment on above: Performed By: #### L 503.0106, L506.0400, L501.9520 #### [facility] [address] [place], [place], [id number] Vitamin B12on 02-16-2025 Cobalamin (Vitamin B12) [Mass/Vol] 1890 pg/mL High 180-914 [facility] Comment on above: Performed By: #### L 503.0106, L506.0400, L501.9520 #### [facility] [address] [place], [id number] Vitamin B12 ser/plasOrdered By: Tayla Multani on 02-16-2025 Cobalamin (Vitamin B12) [Mass/Vol] 1890 pg/mL High 180-914 [facility] Brain W/WO Contraston 2024 Brain W/WO Contrast [facility] Services [address] [place] [id number] Brain W/WO Contrast MR#: [id number] Acct: [id number] Name: PRISCILLA WALTERS Rep #: [id number] : 2000 F 24 From: Gentry Haider PCP: Dr. Kitty Siddiqui DO Status: REG CLI Study: Brain W/WO Contrast Date of Exam: 01/31/25 Exam# [id number] Ordering Dr: Viridiana Faustin MD PROCEDURE: BRAIN [...] No significant abnormality is identified. Reading Location: [place] [address] CC: Dr. Viridiana Faustin MD; Dr. Kitty Siddiqui DO Hardboard Grinder: Signed Normal [facility] Magnetic resonance imaging r eportOrdered By: Gentry Guido on 01-31-2025 Study report [facility] Imaging Services [address] [place] [id number] Brain W/WO Contrast MR#: [id number] Acct: [id number] Name: PRISCILLA WALTERS Rep #: [id number] : 2000 F 24 From: Alan Guido MD PCP: Dr. Kitty Siddiqui, Status: REG CLI Study:Brain W/WO Contrast Date of Exam: 01/31/25 Exam# [id number] Ordering Dr: Bernardo Faustin MD PROCEDURE: BRAIN [...] No significant abnormality is identified. Reading Location: [place] [address] CC: Dr. Viridiana Faustin MD; Dr. 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 [facility] METon 01-16-2025 Methylmalonic Acid 161 nmol/L Normal 0-378 [facility] Comment on above: Result Comment: This test was developed and its performance characteristics determined by [facility]. It has not been cleared or approved by the Food and Drug Administration. Performed At: [address] [id number] Alirio Cain MD Ph:[phone] Performed By: #### G FR, CMP, ANEU, A1C, ADIFF, LIPID, TSH, CBC #### [facility] [address] [place], [place] [address] [place] 01-12-2025 Lyme Total Antibody JAD Negative Normal Negative [facility] Comment on above: Result Comment: Lyme antibodies not detected. Reflex testing is not indicated. No laboratory evidence of infection with B. burgdorferi (Lyme disease). Negative results may occur in patients recently infected (less than or equal to 14 days) with B. burgdorferi. If recent infection is suspected, repeat testing on a new sample collected in 7 to 14 days is recommended. Performed At: [address] [id number] Krysten Arnold PhD Ph:[phone] Performed By: #### G FR, CMP, ANEU, A1C, ADIFF, LIPID, TSH, CBC #### [address] [address] .GFRon 01-11-2025 Estimated Glomerular Filtration Rate 74 ml/min/1.73sqm Normal [facility] Comment on above: Result Comment: Stages of [...] ANEU, A1C, ADIFF, LIPID, TSH, CBC #### [address] [address] B12on 01-11-2025 Vitamin B12 Lvl >2000 High 211-911 [facility] Comment on above: Performed By: #### G FR, CMP, ANEU, A1C, ADIFF, LIPID, TSH, CBC #### [address] [address] BMPon 01-11-2025 BUN/Creatinine Ratio 16 ratio Normal 7-27 [facility] Comment on above: Performed By: #### F T4, TSH, 162789, GFR, 876143, BMP #### [address] [address] #### B12 #### [facility] [address] [place] [address] Calcium [Mass/Vol] 9.4 mg/dL Normal 8.4-10.2 [facility] Comment on above: Performed By: #### F T4, TSH, 579460, GFR, 719863, BMP #### [place] [address] #### B12 #### [address] [address] Chloride [Moles/Vol] 104 mmol/L Normal 98-107 [facility] Comment on above: Performed By: #### F T4, TSH, 428424, GFR, 422651, BMP #### [place] [address] #### B12 #### [address] [address] CO2 [Moles/Vol] 29 mmol/L Normal 22-29 [facility] Comment on above: Performed By: #### F T4, TSH, 466622, GFR, 16410909, BMP #### [place] [address] #### B12 #### [place] [address] Creatinine [Mass/Vol] 1.09 mg/dL High 0.51-0.95 [facility] Comment on above: Performed By: #### F T4, TSH, 765976, GFR, 711876, BMP #### [place] [address] #### B12 #### [place] [address] Electrolyte Balance 8.0 mEq/L Normal 4.0-15.0 [facility] Comment on above: Performed By: #### F T4, TSH, 218612, GFR, 147147, BMP #### [place] [address] #### B12 #### [place] [id number] Glucose [Mass/Vol] 96 mg/dL Normal 70-105 [facility] Comment on above: Performed By: #### F T4, TSH, 635798, GFR, 869798, BMP #### [place] [address] #### B12 #### [address] [address] Potassium [Moles/Vol] 4.5 mmol/L Normal 3.5-5.1 [facility] Comment on above: Performed By: #### F T4, TSH, 630532, GFR, 519822, BMP #### [address] [address] #### B12 #### [address] [address] Sodium [Moles/Vol] 141 mmol/L Normal 136-145 [facility] Comment on above: Performed By: #### F T4, TSH, 861452, GFR, 373845, BMP #### [place] [address] #### B12 #### [place] [address] Urea nitrogen [Mass/Vol] 17 mg/dL Normal 7-18 [facility] Comment on above: Performed By: #### F T4, TSH, 678834, GFR, 468622, BMP #### [place] [address] #### B12 #### [address] [address] FT4on 01-11-2025 Free T4 [Mass/Vol] 0.67 ng/dL Low 0.76-1.46 [facility] Comment on above: Performed By: #### G FR, CMP, ANEU, A1C, ADIFF, LIPID, TSH, CBC #### [place] [address] LABORATORYOrdered By: SYSTEM SYSTEM on 01-11-2025 Calcium [...] 01-11-2025 TSH Qn 2.13 m[IU]/L Normal 0.36-3.74 [facility] Comment on above: Performed By: #### F T4, TSH, 931466, GFR, 684738, BMP #### [facility] [address] [place], [place] [address] #### B12 #### [address] [address] .Auto Diffon 08-03-2024 Basophil, Absolute 0.1 10 3/mcL Normal 0.0-0.2 [facility] Comment on above: Performed By: #### G FR, CMP, ANEU, A1C, ADIFF, LIPID, TSH, CBC #### [address] [address] Basophils/100 WBC (Bld) 2.0 % Normal 0.0-2.5 [facility] Comment on above: Performed By: #### G FR, CMP, ANEU, A1C, ADIFF, LIPID, TSH, CBC #### [address] [address] Eosinophil, Absolute 0.1 10 3/mcL Normal 0.0-0.7 [facility] Comment on above: Performed By: #### G FR, CMP, ANEU, A1C, ADIFF, LIPID, TSH, CBC #### [address] [address] Eosinophils/100 WBC (Bld) 2.2 % Normal 0.0-7.0 [facility] Comment on above: Performed By: #### G FR, CMP, ANEU, A1C, ADIFF, LIPID, TSH, CBC #### [address] [address] Lymphocyte, Absolute 2.3 10 3/mcL Normal 0.9-4.3 [facility] Comment on above: Performed By: #### G FR, CMP, ANEU, A1C, ADIFF, LIPID, TSH, CBC #### [address] [address] Lymphocytes/100 WBC (Bld) 34.8 % Normal 20.0-40.0 [facility] Comment on above: Performed By: #### G FR, CMP, ANEU, A1C, ADIFF, LIPID, TSH, CBC #### [address] [address] Monocyte, Absolute 0.4 10 3/mcL Normal 0.1-1.4 [facility] Comment on above: Performed By: #### G FR, CMP, ANEU, A1C, ADIFF, LIPID, TSH, CBC #### [address] [address] Monocytes/100 WBC (Bld) 6.2 % Normal 2.0-13.0 [facility] Comment on above: Performed By: #### G FR, CMP, ANEU, A1C, ADIFF, LIPID, TSH, CBC #### [place] [address] [place], [place] [address] Neutrophils/100 WBC (Bld) 54.8 % Normal 50.0-75.0 [facility] Comment on above: Performed By: #### G FR, CMP, ANEU, A1C, ADIFF, LIPID, TSH, CBC #### [place] [address] [place], [place] [address] .GFRon 08-03-2024 GFR 84 ml/min/1.73sqm Normal [facility] Comment on above: Result Comment: GFR Population [...] ANEU, A1C, ADIFF, LIPID, TSH, CBC #### [place] [address] [place], [place] [address] GFR Non- 69 ml/min/1.73sqm Normal [facility] Comment on above: Result Comment: GFR Population [...] ANEU, A1C, ADIFF, LIPID, TSH, CBC #### [address] [address] .NEUABSon 08-03-2024 Neutrophil, Absolute 3.6 10 3/mcL Normal 2.3-8.1 [facility] Comment on above: Performed By: #### G FR, CMP, ANEU, A1C, ADIFF, LIPID, TSH, CBC #### [place] [address] A1Con 08-03-2024 Glucose [Mass/Vol] 117 mg/dL Normal [facility] Comment on above: Result Comment: Rhonda mated Average Glucose calculated by equation ((28.7xA1C)-46.7) Estimated average glucose (eAG) is a calculated value from Hemoglobin A1C and is patient intake representative of the average blood glucose level in the last 2-3 month period. Normal range: less than 114 mg/dL Performed By: #### G FR, CMP, ANEU, A1C, ADIFF, LIPID, TSH, CBC #### [place] [id number] HbA1c (Bld) [Mass fraction] 5.7 % Normal 4.3-6.4 [facility] Comment on above: Performed By: #### G FR, CMP, ANEU, A1C, ADIFF, LIPID, TSH, CBC #### [place] [address] CBCon 08-03-2024 Erythrocyte distribution width (RBC) [Ratio] 12.8 % Normal 11.5-15.5 [facility] Comment on above: Performed By: #### G FR, CMP, ANEU, A1C, ADIFF, LIPID, TSH, CBC #### [place] [id number] Hematocrit (Bld) [Volume fraction] 40.3 % Normal 34.0-46.0 [facility] Comment on above: Performed By: #### G FR, CMP, ANEU, A1C, ADIFF, LIPID, TSH, CBC #### [place] [address] Hgb 13.6 G/dL Normal 12.0-16.0 [facility] Comment on above: Performed By: #### G FR, CMP, ANEU, A1C, ADIFF, LIPID, TSH, CBC #### [place] [address] MCH (RBC) [Entitic mass] 30.1 pg Normal 27.0-33.0 [facility] Comment on above: Performed By: #### G FR, CMP, ANEU, A1C, ADIFF, LIPID, TSH, CBC #### [place] [address] MCHC 33.8 G/dL Normal 32.0-36.0 [facility] Comment on above: Performed By: #### G FR, CMP, ANEU, A1C, ADIFF, LIPID, TSH, CBC #### [place] [address] MCV (RBC) [Entitic vol] 89.3 fL Normal 80.0-99.0 [facility] Comment on above: Performed By: #### G FR, CMP, ANEU, A1C, ADIFF, LIPID, TSH, CBC #### [place] [address] Platelet 235 10 3/mcL Normal 150-450 [facility] Comment on above: Performed By: #### G FR, CMP, ANEU, A1C, ADIFF, LIPID, TSH, CBC #### [address] [address] Platelet mean volume (Bld) [Entitic vol] 8.1 fL Normal 6.6-10.5 [facility] Comment on above: Performed By: #### G FR, CMP, ANEU, A1C, ADIFF, LIPID, TSH, CBC #### [place] [address] RBC 4.51 10 6/mcL Normal 4.10-5.30 [facility] Comment on above: Performed By: #### G FR, CMP, ANEU, A1C, ADIFF, LIPID, TSH, CBC #### [address] [address] WBC 6.6 10 3/mcL Normal 4.5-10.8 [facility] Comment on above: Performed By: #### G FR, CMP, ANEU, A1C, ADIFF, LIPID, TSH, CBC #### [address] [address] CMPon 08-03-2024 Albumin Level 3.8 G/dL Normal 3.5-5.0 [facility] Comment on above: Performed By: #### G FR, CMP, ANEU, A1C, ADIFF, LIPID, TSH, CBC #### [address] [address] Albumin/Globulin [Mass ratio] 1.2 {ratio} Normal 1.1-2.5 [facility] Comment on above: Performed By: #### G FR, CMP, ANEU, A1C, ADIFF, LIPID, TSH, CBC #### [address] [address] ALP [Catalytic activity/Vol] 79 U/L Normal 40-135 [facility] Comment on above: Performed By: #### G FR, CMP, ANEU, A1C, ADIFF, LIPID, TSH, CBC #### [address] [address] ALT [Catalytic activity/Vol] 21 U/L Normal 14-59 [facility] Comment on above: Performed By: #### G FR, CMP, ANEU, A1C, ADIFF, LIPID, TSH, CBC #### [address] [address] AST [Catalytic activity/Vol] 15 U/L Normal 10-40 [facility] Comment on above: Performed By: #### G FR, CMP, ANEU, A1C, ADIFF, LIPID, TSH, CBC #### [address] [address] Bili Total 0.4 mg/dL Normal 0.2-1.0 [facility] Comment on above: Result Comment: Use of this assay is not recommended for patients undergoing treatment with eltrombopag due to the potential for falsely elevated results. Performed By: #### G FR, CMP, ANEU, A1C, ADIFF, LIPID, TSH, CBC #### [place] [address] BUN/Creatinine Ratio 16 ratio Normal 7-27 [facility] Comment on above: Performed By: #### G FR, CMP, ANEU, A1C, ADIFF, LIPID, TSH, CBC #### [place] [address] Calcium [Mass/Vol] 9.4 mg/dL Normal 8.4-10.2 [facility] Comment on above: Performed By: #### G FR, CMP, ANEU, A1C, ADIFF, LIPID, TSH, CBC #### [place] [address] Chloride [Moles/Vol] 105 mmol/L Normal 98-107 [facility] Comment on above: Performed By: #### G FR, CMP, ANEU, A1C, ADIFF, LIPID, TSH, CBC #### [place] [address] CO2 [Moles/Vol] 30 mmol/L High 22-29 [facility] Comment on above: Performed By: #### G FR, CMP, ANEU, A1C, ADIFF, LIPID, TSH, CBC #### [place] [address] Creatinine [Mass/Vol] 1.01 mg/dL Normal 0.55-1.02 [facility] Comment on above: Result Comment: Test ing performed on Siemens Dimension EXL analyzer using a modified kinetic [place] technique. Performed By: #### G FR, CMP, ANEU, A1C, ADIFF, LIPID, TSH, CBC #### [place] [address] Electrolyte Balance 5.0 mEq/L Normal 4.0-15.0 [facility] Comment on above: Performed By: #### G FR, CMP, ANEU, A1C, ADIFF, LIPID, TSH, CBC #### [address] [address] Globulin 3.1 G/dL Normal [facility] Comment on above: Performed By: #### G FR, CMP, ANEU, A1C, ADIFF, LIPID, TSH, CBC #### [address] [address] Glucose [Mass/Vol] 86 mg/dL Normal 70-105 [facility] Comment on above: Performed By: #### G FR, CMP, ANEU, A1C, ADIFF, LIPID, TSH, CBC #### [address] [address] Potassium [Moles/Vol] 5.3 mmol/L High 3.5-5.1 [facility] Comment on above: Performed By: #### G FR, CMP, ANEU, A1C, ADIFF, LIPID, TSH, CBC #### [address] [address] Sodium [Moles/Vol] 140 mmol/L Normal 136-145 [facility] Comment on above: Performed By: #### G FR, CMP, ANEU, A1C, ADIFF, LIPID, TSH, CBC #### [address] [address] Total Protein 6.9 G/dL Normal 6.4-8.2 [facility] Comment on above: Performed By: #### G FR, CMP, ANEU, A1C, ADIFF, LIPID, TSH, CBC #### [address] [address] Urea nitrogen [Mass/Vol] 16 mg/dL Normal 7-18 [facility] Comment on above: Performed By: #### G FR, CMP, ANEU, A1C, ADIFF, LIPID, TSH, CBC #### [address] [address] LABORATORYOrdered By: SYSTEM SYSTEM on 08-03-2024 Albumin [...] calculated value from Hemoglobin A1C and is patient intake representative of the average blood glucose level [...] 08-03-2024 Cholesterol [Mass/Vol] 165 mg/dL Normal 0-200 [facility] Comment on above: Result Comment: Chol esterol Reference Interval: Less than 200 Desirable 200-239 Borderline high risk 240 and above High risk Performed By: #### G FR, CMP, ANEU, A1C, ADIFF, LIPID, TSH, CBC #### [address] [address] Cholesterol in HDL [Mass/Vol] 66 mg/dL High 40-60 [facility] Comment on above: Performed By: #### G FR, CMP, ANEU, A1C, ADIFF, LIPID, TSH, CBC #### [address] [address] Cholesterol in LDL [Mass/Vol] 93 mg/dL Normal 0-130 [facility] Comment on above: Performed By: #### G FR, CMP, ANEU, A1C, ADIFF, LIPID, TSH, CBC #### [address] [address] Triglyceride [Mass/Vol] 28 mg/dL Normal 0-150 [facility] Comment on above: Result Comment: Trig lyceride Reference Interval: Less than 150 Normal 150-199 Borderline high risk 200-499 High risk 500 or higher Very high risk Performed By: #### G FR, CMP, ANEU, A1C, ADIFF, LIPID, TSH, CBC #### [place] [address] [place], [place] [address] TSHon 08-03-2024 TSH Qn 0.73 m[IU]/L Normal 0.36-3.74 [facility] Comment on above: Performed By: #### G FR, CMP, ANEU, A1C, ADIFF, LIPID, TSH, CBC #### [place] [address] [place], [place] [address] Urgent Care Visit Reporton 1 Urgent Care Visit Report [facility] [address], [address] [place] [address] OFFICE VISIT Date of Service: 08/03/24 MR#: [id number] Acct: [id number] Name: PRISCILLA WALTERS Rep #: [id number] : 2000 Provider: CHARBEL Monreal Age/Sex: 23/F Location[place] [facility] Status: Signed Intake Vital Signs 06/24/24 08:24 [...] SWOLLEN EYE Chief Complaint: right eye swollen Education Professor Required: No Accompanied by: Mother Is patient [...] for a swollen right eye since yesterday. [facility] Medical History (Updated 08/03/24 @ 10:11 by Eric BARGER, PA) Blepharitis of right upper eyelid Acute pharyngitis, unspecified Urinary tract infection with hematuria Elevated lipoprotein A level Family History Uncle CAD (coronary artery disease) Myocardial infarction, Onset Age: 53 Social History current occupational status: student current occupation: [employer] sexually active: No Smoking Status: Never smoker [...] symptoms progressively worsen once again shortly thereafter. Klfw-qoh-vxmymqx oral Benadryl taken without assist last evening. No other associated symptoms and no other alleviating/aggravati ng factors. ROS Const Constitutional: No other (As above) Exam Const General: cooperative, healthy appearing and no acute distress Nutritional Appearance: average body habitus Orientation: alert and awake [facility] Head: normal to inspection Ears: hearing grossly [...] the above. This note was generated with [employer] dictation software. It may contain incorrect words, [...] Risk S (more content not included)... Normal [facility] CBC-Complete Blood Cnt No Di ffon 06-24-2024 Erythrocyte distribution width (RBC) [Ratio] 11.8 % Normal 11.6-14.6 [facility] Comment on above: Performed By: #### L 506.1000, L503.0105, L503.6030, L100.0500 ####[facility] [address] [place], [address] Hematocrit (Bld) [Volume fraction] 43.6 % Normal 37-47 [facility] Comment on above: Performed By: #### L 506.1000, L503.0105, L503.6030, L100.0500 ####[facility] [address] [place], [address] Hemoglobin (Bld) [Mass/Vol] 14.3 g/dL Normal 12.0-15.0 [facility] Comment on above: Performed By: #### L 506.1000, L503.0105, L503.6030, L100.0500 ####[facility] [address] [place], [address] MCH (RBC) [Entitic mass] 29.1 pg Normal 27.0-32.0 [facility] Comment on above: Performed By: #### L 506.1000, L503.0105, L503.6030, L100.0500 ####[facility] [address] [place], [address] MCHC (RBC) [Mass/Vol] 32.8 g/dL Normal 32-36 [facility] Comment on above: Performed By: #### L 506.1000, L503.0105, L503.6030, L100.0500 ####[facility] [address] [place], [address] MCV (RBC) [Entitic vol] 88.8 fL Normal 81-99 [facility] Comment on above: Performed By: #### L 506.1000, L503.0105, L503.6030, L100.0500 ####[facility] [address] [place], [address] Platelet mean volume (Bld) [Entitic vol] 9.3 fL Normal 6.2-12.0 [facility] Comment on above: Performed By: #### L 506.1000, L503.0105, L503.6030, L100.0500 ####[facility] [address] [place], [address] Platelets (Bld) [#/Vol] 293 10*3/uL Normal 150-450 [facility] Comment on above: Performed By: #### L 506.1000, L503.0105, L503.6030, L100.0500 ####[facility] [address] [place], [address] RBC (Bld) [#/Vol] 4.91 10*6/uL Normal 4.2-5.4 [facility] Comment on above: Performed By: #### L 506.1000, L503.0105, L503.6030, L100.0500 ####[facility] [address] [place], [address] RDW SD 38.0 fl Normal 35.1-43.9 [facility] Comment on above: Performed By: #### L 506.1000, L503.0105, L503.6030, L100.0500 ####[facility] [address] [place], [address] WBC (Bld) [#/Vol] 5.4 10*3/uL Normal 4.4-11.0 [facility] Comment on above: Performed By: #### L 506.1000, L503.0105, L503.6030, L100.0500 ####[facility] [address] [place], [address] Iron+Iron Binding Capacityon 06-24-2024 Iron [Mass/Vol] 123 ug/dL Normal 50-170 [facility] Comment on above: Performed By: #### L 506.1000, L503.0105, L503.6030, L100.0500 ####[facility] [address] [place], [address] IRON SATURATION 27.8 Normal 15.0-55.0 [facility] Comment on above: Performed By: #### L 506.1000, L503.0105, L503.6030, L100.0500 ####[facility] [address] [place], [address] TIBC 442 ug/dL Normal 250-450 [facility] Comment on above: Performed By: #### L 506.1000, L503.0105, L503.6030, L100.0500 ####[facility] [address] [place], [address] Urgent Care Visit Reporton 08-24-2023 Urgent Care Visit Report [facility] [address], [address] [place] [address] OFFICE VISIT Date of Service: 06/24/24 MR#: [id number] Acct: [id number] Name: PRISCILLA WALTERS Rep #: [id number] : 2000 Provider: CHARBEL Waller Age/Sex: 23/F Location: [facility] Status: Signed Intake Vital Signs 02/19/24 15:11 [...] Fatigue, SHAKEY FEELING Chief Complaint: fatigue, dizziness Education Professor Required: No Is patient in pain?: No [...] 1 week, ran covid/influenza test on patient. [facility] Medical History Acute pharyngitis, unspecified Urinary tract infection with hematuria Elevated lipoprotein A level Family History Uncle CAD (coronary artery disease) Myocardial infarction, Onset Age: 53 Social History current occupational status: student current occupation: [employer] sexually active: No Smoking Status: Never smoker [...] Musa Signature: Date (if applicable) CC: Normal [facility] Vitamin B12on 06-24-2024 Cobalamin (Vitamin B12) [Mass/Vol] 1959 pg/mL High 211-911 [facility] Comment on above: Performed By: #### L 506.1000, L503.0105, L503.6030, L100.0500 ####[facility] [address] [place], [place], [address] Vitamin D,25 Hydroxyon 06-24 Vitamin D 25-OH 18.6 ng/mL Normal [facility] Comment on above: Result Comment: Sandra min D 25(OH) Status Range Deficiency <20 ng/mL (50nmol/L) Insufficiency 20 - 30 ng/mL (50 - 75 nmol/L) Sufficiency 30 - 100 ng/mL (75 - 250 nmol/L) Toxicity >100 ng/mL (>250 nmol/L) Performed By: #### L 506.1000, L503.0105, L503.6030, L100.0500 ####[facility] [address] [place], [place], [address] Amorphous sediment detection in urine sediment by light microscopyon 06-13-2022 Amorphous sediment LM Ql (Urine sed) 1+ [facility] Work Phone: Basophil percentageon 2021 Basophil percentage 25-50 SEEN /hpf 0-5 [facility] Work Phone: Bilirubin Test strip Ql (U)o n 06-13-2022 Bilirubin Ql (U) 3 mg/dL Negative [facility] Work Phone: Comment on above: COLOR OF URINE MAY A FFECT DIPSTICK RESULTS. Ketones Test strip Ql (U)on 06-13-2022 Ketones Ql (U) Negative Negative [facility] Work Phone: Mucus LM Ql (Urine sed)on Mucus Ql (Urine sed) 0 SEEN /hpf [facility] Work Phone: Nitrite Test strip Ql (U)on 06-13-2022 Nitrite Ql (U) Positive Negative [facility] Work Phone: No Panel Informationon 06-13 Urine Transitional Epithelial Cells 0-5 SEEN /hpf 0-5 [facility] Work Phone: Protein Test strip Ql (U)on 06-13-2022 Protein Ql (U) 30 mg/dl Negative [facility] Work Phone: Squamous epithelial cells de tection in urine sediment by light microscopyon 06-13-2022 Epithelial cells.squamous LM Ql (Urine sed) 0-5 SEEN /hpf -10 [facility] Work Phone: Urine blood detectionon 06-04 RBC Ql (U) 150 /ul Negative [facility] Work Phone: RBC Ql (U) 10-25 SEEN /hpf 0-5 [facility] Work Phone: Urine clarityon 06-13-2022 Clarity (U) Cloudy Clear [facility] Work Phone: Urine color determinationon 06-13-2022 Color (U) [place] Yellow [facility] Work Phone: Urine glucose detectionon Glucose Ql (U) Normal mg/dl Normal [facility] Work Phone: Urine leukocyte esterase det ection by dipstickon 06-13-2022 Leukocyte esterase Test strip Ql (U) 100 /ul Negative [facility] Work Phone: Urine pHon 06-13-2022 pH (U) 6.0 [pH] 5.0 - 8.0 [facility] Work Phone: Urine sediment bacteria coun t by microscopy (number/high power field)on 06-13-2022 Bacteria LM.HPF (Urine sed) [#/Area] 4 /[HPF] None Seen [facility] Work Phone: Urine sediment renal epithel ial cell count by microscopy (number/high power field)on 06-13-2022 Epithelial cells.renal LM.HPF (Urine sed) [#/Area] 5 /[HPF] 0-5 [facility] Work Phone: Urine specific gravity measu rementon 06-13-2022 Specific gravity (U) [Rel density] 1.020 1.002-1.030 [facility] Work Phone: Urobilinogen Auto test strip Ql (U)on 06-13-2022 Urobilinogen Ql (U) 4 mg/dl Normal [facility] Work Phone: Laboratory - Chemistry and C hemistry - challengeon 06-12-2022 HCG ( test) Ql (U) Negative [facility] Work Phone: Bilirubin Ql (U) Negative [facility] Work Phone: Glucose Ql (U) Negative [facility] Work Phone: Ketones Ql (U) Trace (5) [facility] Work Phone: pH (U) 6.5 [pH] [facility] Work Phone: Specific gravity (U) [Rel density] 1.020 [facility] Work Phone: Urobilinogen (U) [Mass/Vol] Negative [facility] Work Phone: Laboratory - Hematology and Cell countson 06-12-2022 Hemoglobin Ql (U) Hemolyzed [facility] Work Phone: Laboratory - Specimen inform ationon 06-12-2022 Clarity (U) Cloudy [facility] Work Phone: Color (U) ORANGE [facility] Work Phone: Laboratory - Urinalysison Nitrite Ql (U) Negative [facility] Work Phone: Protein Ql (U) Negative [facility] Work Phone: No Panel Informationon 06-12 Urine Leukocytes Positive [facility] Work Phone: Urine Non-Hemolyzed Blood Moderate [facility] Work Phone: [phone] Basophil percentageon 2021 Bilirubin [Mass/Vol] 0.40 mg/dL 0.20-1.[address] [facility] Work Phone: [phone] Comment on above: For patients on eltr ombopag therapy, use of Dimension [place] TBIL is not recommended. Cholesterol [Mass/Vol] 170 mg/dL <200 [facility] Work Phone: [phone] Comment on above: <200 mg/dL Desirable 200-240 mg/dL Borderline >240 mg/dL High Risk Protein [Mass/Vol] 7.4 g/dL 6.4-8.2 [facility] Work Phone: [phone] Triglyceride [Mass/Vol] 112 mg/dL <199 [facility] Work Phone: Comment on above: The drugs N-Acetylcy steine and Metamizole may falsely depress this assay.Serum Triglycerides Reference Interval Normal <150 mg/dL Borderline high 150 - 199 mg/dL High 200 - 499 mg/dL Very High > or = 500 mg/dL Direct bilirubinon Bilirubin.direct [Mass/Vol] 0.10 mg/dL 0.00-0.30 [facility] Work Phone: [phone] Laboratory - Chemistry and C hemistry - challengeon 06-06-2022 ALP [Catalytic activity/Vol] 61 U/L 45-117 [facility] Work Phone: [phone] ALT [Catalytic activity/Vol] 37 U/L 13-56 [facility] Work Phone: [phone] Globulin (S) [Mass/Vol] 3.7 g/dL 2.2-4.2 [facility] Work Phone: [phone] Serum or plasma albumin eugene urement (mass/volume)on 06-06-2022 Albumin [Mass/Vol] 3.7 g/dL 3.2-5.0 [facility] Work Phone: [phone] Serum or plasma cholesterol in HDL measurement (mass/volume)on 11-03-2022 Cholesterol in HDL [Mass/Vol] 46 mg/dL >40 [facility] Work Phone: Comment on above: The drugs N-Acetylcy steine and Metamizole may falsely depress this assay. Reference Range HDL <40 mg/dL Low HDL Cholesterol HDL >or= 60 mg/dL High HDL Cholesterol Serum or plasma cholesterol in VLDL measurement (mass/volume)on 06-06-2022 Cholesterol in VLDL [Mass/Vol] 22 mg/dL 5-40 [facility] Work Phone: Serum or plasma low density lipoprotein (LDL) cholesterol measurement (mass/volume)on 06-06-2022 Cholesterol in LDL [Mass/Vol] 102 mg/dL 0-130 [facility] Work Phone: Thin prep Papanicolaou smear with manual screeningon 06-06-2022 Thin prep Papanicolaou smear with manual screening 20 U/L 15-37 [facility] Work Phone: Basophil percentageon 2021 C. trachomatis DNA JERED+probe Ql (Unsp spec) Negative Negative [facility] Work Phone: Neisseria gonorrhoeae detect ion by PCRon 04-17-2022 N. gonorrhoeae DNA JERED+probe Ql (Cervical mucus) Negative Negative [facility] Work Phone: Progress Noteon 12-13-2021 Decorating Consultant Authentication Interface Message Text Priscilla Walters is a here for follow-up of Chief Complaint Patient presents with New Patient Visit Fm Hx Cardiac Disorder History of Presenting Problem [...] well. She is following with an adult assembly repairer. 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 Priscilla is active with no history of activity intolerance. She was in track, gymnastics, and cheer leading in high school. She is now heading to college at the [employer] to study Horse production and management. [...] PO daily May 29, 2020 2:47pm 05-29-2020 [facility] ([id number]) No facility-administered encounter medications on file as of 12/13/2021. Allergies: No Known Allergies Physical Exam: Vitals: 12/13/21 0952 BP: 115/64 Pulse: 66 Resp: 16 Blood pressure percentiles are not available for patients who are 18 years or older. Height: 158 cm 21 %ile (Z= -0.81) based on CDC (Girls, 2-20 Years) [id number] data based on Stature recorded on 12/13/2021. Weight - Scale: 56.7 kg 47 %ile (Z= -0.07) based on CDC (Girls, 2-20 Years) [id number] data using vitals from 12/13/2021. Physical Exam [...] disease. Plan/Recommendations: Recommend follow up with Adult Damage Adjuster who specializes in Lipoprotein A disorders. No cardiac contraindications to physical activities. No need for f/u in Pediatric Cardiology. Counseling and/or coordination of care (face to face time in the office/outpatient setting or floor/unit time in the hospital) was gre (more content not included)... Normal [facility] Laboratory - Chemistry and C hemistry - challengeon 12-10-2021 Lipoprotein a [Moles/Vol] 150.1 nmol/L [facility] Work Phone: Comment on above: Note: Values greater than or equal to 75.0 nmol/L may indicate an independent risk factor for CHD, but must be evaluated with caution when applied to non- populations due to the influence of genetic factors on Lp(a) across ethnicities.Performed at: [facility] Lab[address] [id number] Director: Clayton Bashir PhD, Phone: [phone] Progress Noteon 12-10-2021 Decorating Consultant Authentication Interface Message Text Priscilla Walters is [...] high (like other illegal drugs, prescription or axxo-qxz-yhhmdur medications, and things that you sniff, aviles, or vape)? Put 0 if none.: 0 4. Use any tobacco or nicotine products (for example, cigarettes, e-cigarettes, hookahs or smokeless tobacco)?: 0 5. Have you ever ridden in a CAR driven by someone (including yourself) who was high or had been using alcohol or drugs?: No Electronically signed by: Jazlyn Jones, [facility] ID: Priscilla Walters is a 21 y.o. [...] With Score - Health Risk Assessment - CRAALETAT Need for vaccination - Meningococcal B (BEXSERO) [...] (!) 156.2 cm, weight 57.3 kg. Normal [facility] Basophil percentageon 2021 C. trachomatis DNA JERED+probe Ql (Unsp spec) Negative Negative [facility] Work Phone: Neisseria gonorrhoeae detect ion by PCRon 11-07-2021 N. gonorrhoeae DNA JERED+probe Ql (Cervical mucus) Negative Negative [facility] Work Phone: Office Visit: [facility]: earacheon 04-08-2017 Documentation of current medications (procedure) T Invalid Interpretation Code [facility] Work Phone: Documentation of current medications (procedure) Done Invalid Interpretation Code [facility] Work Phone: Tobacco smoking status NHIS Never Invalid Interpretation Code [facility] Work Phone: Tobacco use CPHS Never smoker Invalid Interpretation Code [facility] Work Phone: Culture, urine Bacteria identified Cx Nom (U) Presumptive E. coli [facility] Work Phone: Vital Signs Date Time Vital Sign Value Performing Clinician Faci litalina 04-18-2025 20:38-0400 Body temperature 98.1 [degF] Dr. Viridiana Faustin MD [facility] 04-18-2025 20:38-0400 Diastolic blood pressure 70 mm[Hg] Dr. Viridiana Faustin MD [facility] 04-18-2025 20:38-0400 Heart rate 100 /min Dr. Viridiana Faustin MD [facility] 04-18-2025 20:38-0400 Respiratory rate 19 /min Dr. Viridiana Faustin MD [facility] 04-18-2025 20:38-0400 SaO2% (BldA) [Mass fraction] 97 % Dr. Viridiana Faustin MD [facility] 04-18-2025 20:38-0400 Systolic blood pressure 112 mm[Hg] Dr. Viridiana Faustin MD [facility] 04-18-2025 20:36-0400 Body height 157.[address] Viridiana Faustin MD [facility] 04-18-2025 20:36-0400 Body mass index (BMI) [Ratio] 25.9 kg/m2 Dr. Viridiana Faustin MD [facility] 04-18-2025 20:36-0400 Body weight 64.[address] Viridiana Faustin MD [facility] 04-16-2025 00:39-0400 Body temperature 98 [degF] Dr. Viridiana Faustin MD [facility] 04-16-2025 00:39-0400 Diastolic blood pressure 84 mm[Hg] Dr. Viridiana Faustin MD [facility] 04-16-2025 00:39-0400 Heart rate 53 /min Dr. Viridiana Faustin MD [facility] 04-16-2025 00:39-0400 Respiratory rate 16 /min Dr. Viridiana Faustin MD [facility] 04-16-2025 00:39-0400 SaO2% (BldA) [Mass fraction] 100 % Dr. Viridiana Faustin MD [facility] 04-16-2025 00:39-0400 Systolic blood pressure 122 mm[Hg] Dr. Viridiana Faustin MD [facility] 04-15-2025 20:39-0400 Body height 157.[address] Viridiana Faustin MD [facility] 04-15-2025 20:39-0400 Body mass index (BMI) [Ratio] 23.8 kg/m2 Dr. Viridiana Faustin MD [facility] 04-15-2025 20:39-0400 Body weight 59.[address] Viridiana Faustin MD [facility] 03-03-2025 14:24-0400 Body height 157.[address] Viridiana Faustin MD [facility] 03-03-2025 14:24-0400 Body mass index (BMI) [Ratio] 24.1 kg/m2 Dr. Viridiana Faustin MD [facility] 03-03-2025 14:24-0400 Body weight 59.[address] Viridiana Faustin MD [facility] 03-03-2025 14:24-0400 Diastolic blood pressure 91 mm[Hg] Dr. Viridiana Faustin MD [facility] 03-03-2025 14:24-0400 Systolic blood pressure 136 mm[Hg] Dr. Viridiana Faustin MD [facility] 02-16-2025 13:50-0400 Body height 157.[address] Viridiana Faustin MD [facility] 02-16-2025 13:50-0400 Body mass index (BMI) [Ratio] 24.1 kg/m2 Dr. Viridiana Faustin MD [facility] 02-16-2025 13:50-0400 Body weight 59.[address] Viridiana Faustin MD [facility] 02-16-2025 13:50-0400 Diastolic blood pressure 78 mm[Hg] Dr. Viridiana Faustin MD [facility] 02-16-2025 13:50-0400 Systolic blood pressure 118 mm[Hg] Dr. Viridiana Faustin MD [facility] 06-12-2022 14:56-0500 Body temperature 97.8 [degF] SOFTWARE QA SYSTEM SPECIALIST-C Alia Perry SOFTWARE QA SYSTEM SPECIALIST Work Phone: [facility] Work Phone: 06-12-2022 14:56-0500 Diastolic blood pressure 66 mm[Hg] SOFTWARE QA SYSTEM SPECIALIST-C Alia Perry SOFTWARE QA SYSTEM SPECIALIST Work Phone: [facility] Work Phone: 06-12-2022 14:56-0500 Heart rate 106 /min SOFTWARE QA SYSTEM SPECIALIST-C Alia Perry SOFTWARE QA SYSTEM SPECIALIST Work Phone: [facility] Work Phone: 06-12-2022 14:56-0500 Respiratory rate 14 /min SOFTWARE QA SYSTEM SPECIALIST-C Alia Perry SOFTWARE QA SYSTEM SPECIALIST Work Phone: [facility] Work Phone: 06-12-2022 14:56-0500 SaO2% (BldA) [Mass fraction] 98 % SOFTWARE QA SYSTEM SPECIALIST-C Alia Orlando SOFTWARE QA SYSTEM SPECIALIST Work Phone: [facility] Work Phone: 06-12-2022 14:56-0500 Systolic blood pressure 108 mm[Hg] SOFTWARE QA SYSTEM SPECIALIST-C Alia Orlando SOFTWARE QA SYSTEM SPECIALIST Work Phone: [facility] Work Phone: 05-15-2022 12:51-0400 Body height 157.48 cm SOFTWARE QA SYSTEM SPECIALIST-C Alia Glendale SOFTWARE QA SYSTEM SPECIALIST Work Phone: [facility] Work Phone: 05-15-2022 12:51-0400 Body mass index (BMI) [Percentile] Per age and sex 70 % SOFTWARE QA SYSTEM SPECIALIST-C Alia Glendale SOFTWARE QA SYSTEM SPECIALIST Work Phone: [facility] Work Phone: 05-15-2022 12:51-0400 Body mass index (BMI) [Ratio] 23.6 kg/m2 SOFTWARE QA SYSTEM SPECIALIST-C Alia Glendale SOFTWARE QA SYSTEM SPECIALIST Work Phone: [facility] Work Phone: 05-15-2022 12:51-0400 Body weight 58.51 kg SOFTWARE QA SYSTEM SPECIALIST-C Alia Orlando SOFTWARE QA SYSTEM SPECIALIST Work Phone: [facility] Work Phone: 05-15-2022 12:51-0400 Diastolic blood pressure 75 mm[Hg] SOFTWARE QA SYSTEM SPECIALIST-C Alia Glendale SOFTWARE QA SYSTEM SPECIALIST Work Phone: [facility] Work Phone: 05-15-2022 12:51-0400 Heart rate 76 /min SOFTWARE QA SYSTEM SPECIALIST-C Alia Orlando SOFTWARE QA SYSTEM SPECIALIST Work Phone: [facility] Work Phone: 05-15-2022 12:51-0400 Respiratory rate 16 /min SOFTWARE QA SYSTEM SPECIALIST-C Alia Orlando SOFTWARE QA SYSTEM SPECIALIST Work Phone: [facility] Work Phone: 05-15-2022 12:51-0400 SaO2% (BldA) [Mass fraction] 100 % SOFTWARE QA SYSTEM SPECIALIST-C Alia Orlando SOFTWARE QA SYSTEM SPECIALIST Work Phone: [facility] Work Phone: 05-15-2022 12:51-0400 Systolic blood pressure 127 mm[Hg] SOFTWARE QA SYSTEM SPECIALIST-C Alia Orlando SOFTWARE QA SYSTEM SPECIALIST Work Phone: [facility] Work Phone: 04-17-2022 13:03-0400 Body mass index (BMI) [Percentile] Per age and sex 79.4 % SOFTWARE QA SYSTEM SPECIALIST-C Alia Glendale SOFTWARE QA SYSTEM SPECIALIST Work Phone: [facility] Work Phone: 04-17-2022 13:03-0400 Body mass index (BMI) [Ratio] 25 kg/m2 SOFTWARE QA SYSTEM SPECIALIST-C Alia Glendale SOFTWARE QA SYSTEM SPECIALIST Work Phone: [facility] Work Phone: 04-17-2022 13:03-0400 Diastolic blood pressure 82 mm[Hg] SOFTWARE QA SYSTEM SPECIALIST-C Alia Glendale SOFTWARE QA SYSTEM SPECIALIST Work Phone: [facility] Work Phone: 04-17-2022 13:03-0400 Systolic blood pressure 124 mm[Hg] SOFTWARE QA SYSTEM SPECIALIST-C Alia Glendale SOFTWARE QA SYSTEM SPECIALIST Work Phone: [facility] Work Phone: 04-17-2022 13:01-0400 Body weight 62.14 kg SOFTWARE QA SYSTEM SPECIALIST-C Alia Glendale SOFTWARE QA SYSTEM SPECIALIST Work Phone: [facility] Work Phone: 11-07-2021 14:55-0400 Body height 157.48 cm SOFTWARE QA SYSTEM SPECIALIST-C Alia Glendale SOFTWARE QA SYSTEM SPECIALIST Work Phone: [facility] Work Phone: 11-07-2021 14:55-0400 Body mass index (BMI) [Ratio] 24.7 kg/m2 SOFTWARE QA SYSTEM SPECIALIST-C Alia Glendale SOFTWARE QA SYSTEM SPECIALIST Work Phone: [facility] Work Phone: 11-07-2021 14:55-0400 Body weight 61.23 kg SOFTWARE QA SYSTEM SPECIALIST-C Alia Orlando SOFTWARE QA SYSTEM SPECIALIST Work Phone: [facility] Work Phone: 11-07-2021 14:55-0400 Diastolic blood pressure 80 mm[Hg] SOFTWARE QA SYSTEM SPECIALIST-C Alia Perry SOFTWARE QA SYSTEM SPECIALIST Work Phone: [facility] Work Phone: 11-07-2021 14:55-0400 Systolic blood pressure 122 mm[Hg] SOFTWARE QA SYSTEM SPECIALIST-C Alia Perry SOFTWARE QA SYSTEM SPECIALIST Work Phone: [facility] Work Phone: 04-08-2017 16:27-0400 BMI (Body Mass Index) 18.75 kg/m2 Rosa Ocampo BRAID [facility] Work Phone: 04-08-2017 16:27-0400 Body Temperature 99.1 [degF] Rosa Ocampo BRAID [facility] Work Phone: 04-08-2017 16:27-0400 BP Diastolic 64 mm[Hg] Rosa Ocampo BRAID [facility] Work Phone: 04-08-2017 16:27-0400 BP Systolic 112 mm[Hg] Rosa Contiar [facility]ID [facility] Work Phone: 04-08-2017 16:27-0400 Height 152.4 cm Rosa Ocampo BRAID [facility] Work Phone: 04-08-2017 16:27-0400 Pulse (Heart Rate) 102 /min Rosa Ocampo BRAID [facility] Work Phone: 04-08-2017 16:27-0400 Respiratory Rate 18 /min Rosa Ocampo BRAID [facility] Work Phone: 04-08-2017 16:27-0400 Weight 43.55 kg Rosa Ocampo LPN [facility] Work Phone: Encounters Encounter Date Encounter Type Care Provider Facility Start: 04-18-2025 End: 04-18-2025 Emergency department patient visit Dr. Viridiana Faustin MD -Emergency Department Work Phone: Start: 04-18-2025 End: 04-18-2025 ambulatory Pola Graff Facility:[facility] Start: 04-15-2025 End: 04-16-2025 Emergency department patient visit Dr. Viridiana Faustin MD -Emergency Department Work Phone: Start: 03-04-2025 End: 03-04-[address] Viridiana Faustin MD -Laboratory Start: 03-04-2025 End: 03-04-2025 Patient encounter procedure Tayla DUNNC -Laboratory Work Phone: Start: 03-03-2025 End: 03-03-2025 Patient encounter procedure Tayla Multani NP-C -[facility] Work Phone: Start: 03-03-2025 End: 03-04-[address] Viridiana Faustin MD -[facility] Start: 02-21-2025 End: 02-21-[address] Viridiana Faustin MD -Ultrasound [facility] Start: 02-21-2025 End: 02-21-2025 Patient encounter procedure Tayla Multani NP-Ashlee -Ultrasound [facility] Work Phone: Start: 02-21-2025 End: 02-21-2025 ambulatory Tayla Multani Facility:[facility] Start: 02-16-2025 End: 02-16-[address] Viridiana Faustin MD -Laboratory Start: 02-16-2025 End: 02-16-2025 Patient encounter procedure Tayla DUNNC -Laboratory Work Phone: Start: 02-16-2025 End: 02-16-[address] Viridiana Faustin MD -[facility] Start: 02-16-2025 End: 02-16-2025 Patient encounter procedure Tayla Multani NP-C -[facility] Work Phone: Start: 02-15-2025 End: 02-16-2025 ambulatory VIRIDIANA FAUSTIN MD Facility: Start: 02-15-2025 End: 02-15-2025 Patient encounter procedure VIRIDIANA FAUSTIN MD [facility] [place] Start: 01-31-2025 End: 01-31-[address] Viridiana Faustin MD -[facility] Start: 01-31-2025 End: 01-31-[address] Viridiana Faustin MD -[facility] Work Phone: Start: 01-31-2025 End: 01-31-2025 ambulatory Viridiana Faustin Facility:[facility] Start: 01-11-2025 End: 01-11-2025 ambulatory VIRIDIANA FAUSTIN MD Facility:[facility] Start: 01-11-2025 End: 01-11-2025 Patient encounter procedure VIRIDIANA FAUSTIN MD [facility] Start: 08-03-2024 End: 08-03-2024 ambulatory KITTY SIDDIQUI DO Facility:[facility] Start: 08-03-2024 End: 08-03-2024 Patient encounter procedure KITTY SIDDIQUI DO [facility] Start: 08-03-2024 End: 08-03-2024 ambulatory Eric Byers Facility:[facility] Start: 06-24-2024 End: 06-24-2024 ambulatory Panda BARGER Facility[facility] Start: 06-24-2024 End: 06-24-2024 ambulatory Panda BARGER Facility:[facility] Start: 07-23-2022 Non-patient / Non-visit SOFTWARE QA SYSTEM SPECIALIST-C Ashlee Perry SOFTWARE QA SYSTEM SPECIALIST Work Phone: [facility] Start: 07-23-2022 End: 07-23-2022 ambulatory SOFTWARE QA SYSTEM SPECIALIST-C Alia Perry SOFTWARE QA SYSTEM SPECIALIST Work Phone: [facility] Work Phone: Start: 07-23-2022 End: 07-23-2022 Patient encounter procedure SOFTWARE QA SYSTEM SPECIALIST-C Alia Perry SOFTWARE QA SYSTEM SPECIALIST Work Phone: [facility]-Cardiovascula r Services Start: 06-12-2022 End: 06-12-2022 ambulatory SOFTWARE QA SYSTEM SPECIALIST-C Alia Perry SOFTWARE QA SYSTEM SPECIALIST Work Phone: [facility] Work Phone: Start: 06-12-2022 End: 06-12-2022 Patient encounter procedure SOFTWARE QA SYSTEM SPECIALIST-C Alia Glendale SOFTWARE QA SYSTEM SPECIALIST Work Phone: [facility] Start: 06-06-2022 End: 06-06-2022 ambulatory SOFTWARE QA SYSTEM SPECIALIST-C Alia Glendale SOFTWARE QA SYSTEM SPECIALIST Work Phone: [facility] Work Phone: Start: 06-06-2022 End: 06-06-2022 Patient encounter procedure SOFTWARE QA SYSTEM SPECIALIST-C Alia Glendale SOFTWARE QA SYSTEM SPECIALIST Work Phone: [facility]-Laboratory Start: 05-15-2022 End: 05-15-2022 Patient encounter procedure SOFTWARE QA SYSTEM SPECIALIST-C Alia Glendale SOFTWARE QA SYSTEM SPECIALIST Work Phone: [facility] Start: 04-17-2022 End: 04-17-2022 Patient encounter procedure SOFTWARE QA SYSTEM SPECIALIST-C Alia Orlando SOFTWARE QA SYSTEM SPECIALIST Work Phone: [facility]-Laboratory, Specimen Start: 04-17-2022 End: 04-17-2022 Patient encounter procedure SOFTWARE QA SYSTEM SPECIALIST-C Alia Orlando SOFTWARE QA SYSTEM SPECIALIST Work Phone: [facility] Start: 12-10-2021 End: 12-10-2021 Patient encounter procedure SOFTWARE QA SYSTEM SPECIALIST-C Alia Glendale SOFTWARE QA SYSTEM SPECIALIST [facility] Start: 11-07-2021 End: 11-07-2021 Patient encounter procedure SOFTWARE QA SYSTEM SPECIALIST-C Alia Orlando SOFTWARE QA SYSTEM SPECIALIST [facility] Start: 11-07-2021 End: 11-07-2021 Patient encounter procedure SOFTWARE QA SYSTEM SPECIALIST-C Alia Perry SOFTWARE QA SYSTEM SPECIALIST Work Phone: [facility] Procedures Date Procedure Procedure Detail Performing Clinician [...] contrast Dr. Viridiana Faustin MD Urine culture SOFTWARE QA SYSTEM SPECIALIST-C Alia Perry SOFTWARE QA SYSTEM SPECIALIST Work Phone: Plan of Treatment Date Care Activity Detail Author Start: 04-16-2025 [facility] Start: 04-15-2025 [facility] Start: 04-15-2025 [facility] Start: 02-21-2025 Pelvic echography Pelvic w/ Transvaginal [facility] Start: 02-21-2025 US Pelvis [facility] Start: 06-13-2022 [facility] Work Phone: Start: 04-08-2017 End: 04-08-2017 Appointment Appointment [facility] Work Phone: Bacteria identified in Urine by Culture Urine Culture [facility] Work Phone: Chlamydia deoxyribon ucleic acid detection [facility] Patient Education [facility] Work Phone: Source specific culture [facility] Work Phone: [facility] Immunizations Immunization Date Immunization Notes Care Provider Fa cility 04-18-2025 rabies vaccine, for intramuscular injection Dr. Viridiana Faustin MD [facility] 04-15-[address] Viridiana sarah MD [facility] 04-15-2025 rabies vaccine, for intramuscular injection Dr. Viridiana Faustin MD [facility] 04-15-2025 tetanus toxoid, redu berna diphtheria toxoid, and acellular pertussis vaccine, adsorbed Dr. Viridiana Faustin MD [facility] 12-10-2021 meningococcal B vacc ine, recombinant, OMV, adjuvanted VIRIDIANA FAUSTIN MD [facility] 10-25-2020 hepatitis A vaccine, pediatric dosage, unspecified formulation VIRIDIANA FAUSTIN MD [facility] 10-25-2020 Human Papillomavirus Chachaval VIRIDIANA FAUSTIN MD [facility] 10-25-2020 influenza virus vacc ine, unspecified formulation VIRIDIANA FAUSTIN MD [facility] 10-25-2020 meningococcal B vacc ine, recombinant, OMV, adjuvanted VIRIDIANA FAUSTIN MD [facility] 10-14-2019 hepatitis A vaccine, pediatric dosage, unspecified formulation VIRIDIANA FAUSTIN MD [facility] 10-14-2019 Human Papillomavirus Jose Francisco FAUSTIN MD [facility] 03-25-2019 Human Papillomavirus Chachaval VIRIDIANA FAUSTIN MD [facility] 03-25-2019 meningococcal polysaccharide (groups A, C, Y and W-135) diphtheria toxoid conjugate vaccine (MCV4P) VIRIDIANA FAUSTIN MD [facility] 03-25-2019 tetanus toxoid, redu berna diphtheria toxoid, and acellular pertussis vaccine, adsorbed VIRIDIANA FAUSTIN MD [facility] 10-05-2015 influenza virus vacc ine, unspecified formulation VIRIDIANA FAUSTIN MD [facility] 07-06-2014 influenza virus vacc ine, unspecified formulation VIRIDIANA FAUSTIN MD [facility] 07-06-2014 meningococcal polysaccharide (groups A, C, Y and W-135) diphtheria toxoid conjugate vaccine (MCV4P) VIRIDIANA FAUSTIN MD [facility] 07-06-2014 tetanus toxoid, redu berna diphtheria toxoid, and acellular pertussis vaccine, adsorbed VIRIDIANA FAUSTIN MD [facility] 02-25-2013 varicella virus vaccine BLANKA FAUSTIN MD [facility] 04-27-2008 diphtheria, tetanus toxoids and acellular pertussis vaccine, unspecified formulation VIRIDIANA FAUSTIN MD [facility] 04-27-2008 measles/mumps/rubell a virus vaccine VIRIDIANA FAUSTIN MD [facility] 04-27-2008 poliovirus vaccine, inactivated VIRIDIANA FAUSTIN MD [facility] 10-04-2005 influenza virus vacc ine, unspecified formulation VIRIDIANA FAUSTIN MD [facility] 06-06-2004 influenza virus vacc ine, unspecified formulation VIRIDIANA FAUSTIN MD [facility] 03-02-2004 diphtheria, tetanus toxoids and acellular pertussis vaccine, unspecified formulation VIRIDIANA FAUSTIN MD [facility] 03-02-2004 haemophilus influenz ae type b vaccine, PRP-T conjugate VIRIDIANA FAUSTIN MD [facility] 12-10-2003 measles/mumps/rubell a virus vaccine VIRIDIANA FAUSTIN MD [facility] 12-10-2003 varicella virus vaccine BLANKA FAUSTIN MD [facility] 09-17-2003 hepatitis B pediatri c vaccine VIRIDIANA FAUSTIN MD [facility] 05-26-2003 diphtheria, tetanus toxoids and acellular pertussis vaccine, unspecified formulation VIRIDIANA FAUSTIN MD [facility] 05-26-2003 haemophilus influenz ae type b vaccine, PRP-T conjugate VIRIDIANA FAUSTIN MD [facility] 05-26-2003 poliovirus vaccine, inactivated VIRIDIANA FAUSTIN MD [facility] 04-02-2003 diphtheria, tetanus toxoids and acellular pertussis vaccine, unspecified formulation VIRIDIANA FAUSTIN MD [facility] 04-02-2003 haemophilus influenz ae type b vaccine, PRP-T conjugate VIRIDIANA FAUSTIN MD [facility] 04-02-2003 poliovirus vaccine, inactivated VIRIDIANA FAUSTIN MD [facility] 02-05-2003 diphtheria, tetanus toxoids and acellular pertussis vaccine, unspecified formulation VIRIDIANA FAUSTIN MD [facility] 02-05-2003 haemophilus influenz ae type b vaccine, PRP-T conjugate VIRIDIANA FAUSTIN MD [facility] 02-05-2003 poliovirus vaccine, inactivated VIRIDIANA FAUSTIN MD [facility] 01-03-2003 hepatitis B pediatri c vaccine VIRIDIANA FAUSTIN MD [facility] 2002 hepatitis B pediatri c vaccine VIRIDIANA FAUSTIN MD [facility] Payers Date Payer Category Payer Private Health Insurance [id number] 2025 Private Health Insurance [id number] 2024 Unknown [id number] 2024 Self-pay [id number] 2024 Unknown [id number] 2002 Unknown [id number] 2.16. [id number] 2002 Unknown [id number] 2.16.8 [id number] 2002 Unknown [id number] 2.16. [id number] Private Health Insurance [id number] Unknown [id number] 2.16.8 [id number] Unknown [id number] 2.16.8 [id number] Unknown [id number] 2.16.8 [id number] Unknown [id number] 2.16.8 [id number] Unknown [id number] 2.16.8 [id number] Unknown [id number] 2.16.8 [id number] Unknown [id number] 2.16.8 [id number] Unknown [id number] 2.16.8 [id number] Unknown [id number] 2.16.8 [id number] Unknown [id number] 2.16.8 [id number] Unknown [id number] 2.16.8 [id number] Social History Date Type Detail Facility Start: 11-07-2021 End: 06-12-2022 Tobacco smoking status NHIS Unknown if ever smoked [facility] Work Phone: Start: 2000 Sex Assigned At Female A [facility] Start: 08-02-2024 End: 04-15-2025 Tobacco smoking status Ex-smoker (finding) [facility] Sexual Orientation [place] [facility] (finding[facility] Start: 09-27-2023 Tobacco smoking stat us NHIS Never smoked tobacco (finding) [facility] Mental Status Date Assessment Result Facility 04-16-2025 Cognitive function Level Of Cons ciousness Awake;Alert;Appropriate;Follow s Commands [facility] Work Phone: Clinical Notes 01-11-2025 to 04-16-2025 Note Date & Type Note Facility 04-16-2025 Discharge summary [facility] 04-15-2025 Discharge summary Note Date/Time April 16, 2025 12:37am [facility] Medical Records Department [address] [place] [address] Emergency Department Summary 04/15/25 MR#: [id number] Acct: [id number] Name: PRISCILLA WALTERS Rep #:[id number] 2 : 2000 24 From: Pola Graff MD PCP: Dr. Kitty Siddiqui DO Status:REG ER Location: ED ADDENDUM by Dr. Pola Graff MD on 04/16/25 at 0037 Patient was reassessed at 0035. Her rash has improved. She is no longer itching. She was discharged prescription for Benadryl and Pepcid 04/16/25 0037<Electronically signed by Pola Graff MD> Cosigner Signature (if applicable): cc: Dr. Kitty Siddiqui, ~* Signed ADDENDUM by Dr. Pola Graff MD on 04/15/25 at 2340 Prior to patient leaving she noted to have a rash at the injection site right wrist. It is slightly pruritic. Will treat with H1 and H2 adriana and observe. 04/15/25 2340<Electronically signed by Pola Graff MD> Cosigner Signature (if applicable): cc: Dr. Kitty Siddiqui DO ~* Signed HPI History of Present Illness Chief Complaint: Bite Detail of Chief Complaint: Cat bite thenar and hypothenar eminence right hand Informant: patient Onset/Context/Timing Onset: Hours Mechanism/Context: other (Cat bite right hand) Location of pain/injuries: Right foot Quality of Pain: - (Not applicable) Location: [place] right hand is previously described Current Severity: Not applicable Maximum Severity: Pain from the bite Worsened by: Apparently cat was ill and may have been bitten by a raccoon Relieved by: Nothing Associated Symptoms Associated Symptoms: Negative for Parasthesias, Weakness, Loss of function, Inability to ambulate, Loss of consciousness or Amnesia Narrative Narrative: Patient is a 24-year-old female. She presents from veterinary office because she was bit by a cat. Initially I was unaware that the cat was being euthanizedbecause there was concern the cat had rabies. When asked if the cat belonged toher she informing that it was a clients cat. She had her uniform on. I presumed that the cat was vaccinated. After nurse gave the patient the medication I initially ordered she asked when she would receive her rabies shot. After further questioning it was determined that the cat apparently had been anoutdoor cat. The vaccination history of the cat was unknown. The cat apparently was bitten by a raccoon. The cat was doing very poorly and was euthanized. The brain was sent to [facility] to test for rabies. Tetanus Immunization: Unknown Prior similar symptoms: No Recent Illness/Hospitalization: No PFSH PFS Medical History Blepharitis of right upper eyelid Acute pharyngitis, unspecified Urinary tract infection with hematuria Elevated lipoprotein A level Home Medications ?Medication ?Instructions ?Recorded ?Last Taken ?Type ascorbate calcium (vitamin C) 500 500 mg PO QDAY 03/03 Unknown History mg tablet biotin 5 mg capsule 5 mg PO QDAY 03/03/25 Unknow n History cholecalciferol (vitamin D3) 250 250 mcg PO QDAY 03/03 Unknown History mcg (10,000 unit) capsule amoxicillin 875 mg-potassium 875 mg PO Q12H #8 TABLETS 04/15/25 Unknown Rx clavulanate 125 mg tablet Allergy/AdvReac Type Severity Reaction Status Date / Time No Known Allergies Allergy Verified 04/15/25 20:40 Family History Uncle CAD (coronary artery disease) Myocardial infarction, Onset Age: 53 Social History adopted: No household members: family number of children: 0 current occupational status: unemployed and student 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 ROS ROS ED Constitutional Constitutional ED: Denies chills, fever(s), subjective, sweats or weight loss Musculoskeletal Musculoskeletal: Denies arthralgias or myalgias Integumentary Reports other Details: Puncture wounds thenar and hypothenar eminence right hand; Denies rash Neurologic Neurologic: Denies paresthesias or weakness Hematologic/Lymphatic Hematologic/Lymphatic: Denies easy bruising EXAM Physical Exam Const Vital Signs: 04/15/25 20:39 04/15/25 22:39 Temperature 98.2 F 98 F Temperature Source Temporal Pulse Rate 60 55 L Respiratory Rate 18 16 Blood Pressure 131/78 H 119/80 Blood Pressure Mean 95 93 Pulse Ox 99 100 Oxygen Delivery Method Room Air Positive well nourished and well developed General Appearance ED: well developed and NAD HEENT atraumatic Eyes PERRL and EOMs intact bilaterally Resp normal respiratory effort Cardio regular rhythm and S1 normal heart sound Extremity Negative for normal to inspection Extremity Narrative: Cat bite over the thenar and hypothenar eminence of the right hand. There is noInsa infection i.e. erythema, warmth, induration, fluctuance lymphangitis. Neuro oriented x3, CN's II-XII intact bilaterally and moves all extremities Neuro Narrative: Median, radial and ulnar nerve function intact. Psych thought process normal Skin Skin Narrative: Puncture wound due to cat bite PROC Procedures Other Procedures Procedure(s): Rabies immunoglobulin injection half infiltrated in the superficial radial nerve distribution and the second shot which was the remaining half in the ulnar nerve distribution since the bites were the thenar and hypothenar eminence. Patient tolerated procedure. MDM MDM MDM Narrative Medical decision making narrative: Since her tetanus is unknown she was updated. She received Augmentin. In lightof the concern that the cat had rabies she will receive rabies immunoglobulin and rabies vaccine. Discharge Plan Triage Chief Complaint: Bite ED Provider: Pola Graff Dx/Rx/DC Orders Clinical Impression: Cat bite of multiple sites of right hand and wrist, Contact with and (suspected) exposure to rabies Instructions: ED Cat Bite Prescriptions: New amoxicillin-pot clavulanate 875-125 mg tablet 875 mg PO Q12H Qty: 8 0RF No Action ascorbate calcium (vitamin C) 500 mg tablet 500 mg PO QDAY cholecalciferol (vitamin D3) 250 mcg (10,000 unit) capsule 250 mcg PO QDAY biotin 5 mg capsule 5 mg PO QDAY Primary Care Provider: Kitty Siddiqui Referrals: Kitty Siddiqui DO [Primary Care Provider] - As Needed Print Language: Japanese Disposition Disposition: Home, Self Care What to do if you have Problems For any increased pain, shortness of breath, bleeding, nausea or vomiting, chestpain, or any unexpected problems, contact your Primary Care Provider. Call [facility] ([phone]) or report to the closest Emergency Room. Call 911 if necessary. 04/15/252306 <Electronically signed by Pola Graff MD> Cosigner Signature (if applicable): CC: Dr. Kitty Siddiqui DO ~ Signed [facility] Work Phone: 1(785) 631-141907-24-2025 Radiology Diagnostic study note [facility] Imaging Services [address] [place] [address] Pelvic w/ Transvaginal MR#: [id number] Acct: [id number] Name: PRISCILLA WALTERS Rep #: [id number] 9 : 2000 F 24 From: Alexa Wren MD PCP: Dr. Kitty Siddiqui DO Status: REG CLI Study:Pelvic w/ Transvaginal Date of Exam: 02/21/25 Exam# [id number] Ordering Dr: Tayla Multani PROCEDURE: PELVIC W/ TRANSVAGINAL 02/21/2025 REASON FOR [...] free fluid is likely physiologic. Reading Location: [id number] CC: ERIK Multani; Dr. 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 [facility]07-16-2025 Evaluation note* Diagnosis Onset Date Resolution Status Admit Date Abnormal uterine bleeding acute February 16, 2025 1:40pm Elevated vitamin B12 level acute February 16, 2025 1:40pm Pelvic pain acute February 16 1:40pm Possible exposure to STI acute February 16, 2025 1:40pm Vaginal discharge acute February 162024 1:40pm [facility] Work Phone: 1(120) 501-931507-16-2025 Evaluation note* Diagnosis Onset Date Resolution Status Admit Date Abnormal uterine bleeding acute February 16, 2025 1:40pm Elevated vitamin B12 level acute February 16, 2025 1:40pm Pelvic pain acute February 16 1:40pm Possible exposure to STI acute February 16, 2025 1:40pm Vaginal discharge acute February 162024 1:40pm PCOS (polycystic ovarian syndrome) acute March 03, 2025 2:05pm [facility] Work Phone: 1(966) 917-100806-10-2025 Evaluation + Plan note Diagnostic Tests Pending * Lyme Disease Serology w/Reflex 01/11/25 * Methylmalonic Acid, Serum 01/11/25 [facility] Evaluation + Plan note Future Appointments Appointment Date:10/28/2024 08:00:00 AM Scheduled Provider:KITTY SIDDIQUI DO Location:[facility] Appointment Type:PC OV [facility] Evaluation note* Diagnosis Onset Date Resolution Status Menorrhagia with irregular cycle acute [facility] Work Phone: Evaluation note* Diagnosis Onset Date Resolution Status Menorrhagia with irregular cycle acute Possible exposure to STD non eactive Chest pain acute Elevated lipoprotein A level acute Urinary tract infection with hematuria acute [facility] Work Phone: Evaluation noteNo assessment information available [facility] Work Phone: Hospital course Narrative No data available for this section [facility] Hospital Discharge instructions No data available for this section [facility] Progress note No data available for this section [facility] Reason for referral (narrative)No reason for referral [facility] Work Phone: Chief Complaint and Reason for Visit 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) Reason for Visit Menorrhagia with irr egular cycle Chief Complaint bleeding x2 mos whil e on BC, no missed doses elevated lipoproteins/ okayed by BAKERY DECORATOR CONCERN FOR UTI Reason for Visit Menorrhagia with irr egular cycle Possible exposure to STD Chest pain Elevated lipoprotein A level Urinary tract infection with hematuria Chief Complaint bleeding x2 mos whil e on BC, no missed doses elevated lipoproteins/ okayed by BAKERY DECORATOR CONCERN FOR UTI DYSPNEA Reason for Visit [...] (polycystic ovarian syndrome) March 03, 2025 2:05pm Chief Complaint Admit Date TRANSIENT ALTERED AWARENESS January 31 9:23am AUB/pelvic pain February 16, 2025 1:40 pm INT LAB ORDERS February 16, 2025 2:57 pm PELVIC PAIN February 21, 2025 2:12 pm US F/U DISCUSS BC March 03, 2025 2:05 pm cat bite April 15, 2025 8:39pm Chief Complaint Admit Date TRANSIENT ALTERED AWARENESS January 31 9:23am AUB/pelvic pain February 16, 2025 1:40 pm INT LAB ORDERS February 16, 2025 2:57 pm PELVIC PAIN February 21, 2025 2:12 pm US F/U DISCUSS BC March 03, 2025 2:05 pm cat bite April 15, 2025 8:39pm rabies vaccine April 18, 2025 8:14pm Summary Purpose Family History No Family History Records Found Relationship Condition Age at Onset Recorded Date/T tiffani uncle Coronary artery disease Unknown Myocardial infarction 55 Advance Directives No Advanced Directives Records Found Advance Directive Response Recorded Date/ Time Do you have a Healthcare Power of [employer]? No April 15, 2025 8:39pm Additional Source Comments Goals (unrecognized section and [...] section and content) DATE CREATED AUTHOR 12/15/2021 [facility] DATE CREATED AUTHOR AUTHOR'S ORGANIZ ATION 01/18/2025 [facility] DATE CREATED AUTHOR AUTHOR'S ORGANIZ ATION 03/19/2025 [facility] DATE CREATED AUTHOR AUTHOR'S ORGANIZ ATION 04/19/2025 [place] [facility] [place] (unrecognized section [...] 2025 End: February 16, 2025 Tayla Multani NP-C Attending Provider Active Start: February 16, 2025 End: February 16, 2025 Team Status: Inactive Member Role/Relationship Status Dates Dr. Kitty Siddiqui DO Primary Care Provider Active Start: February 16, 2025 End: February 16, 2025 Tayla Multani SOFTWARE QA SYSTEM SPECIALIST-C Attending Provider Active Start: February 16, 2025 End: February 16, 2025 Tayla Multani SOFTWARE QA SYSTEM SPECIALIST-C Referring Provider Active Start: February 16, 2025 End: February 16, 2025 Team Status: Active Member Role/Relationship Status Dates Dr. Kitty Siddiqui DO Primary Care Provider Active Start: February 21, 2025 Tayla Multani SOFTWARE QA SYSTEM SPECIALIST-C Attending Provider Active Start: February 21, 2025 Tayla Multani NP-C Referring Provider Active Start: February 21, 2025 Team Status: Inactive Member Role/Relationship Status Dates Dr. Kitty Siddiqui DO Primary Care Provider Active Start: February 21, 2025 End: February 21, 2025 Tayla Multani SOFTWARE QA SYSTEM SPECIALIST-C Attending Provider Active Start: February 21, 2025 End: February 21, 2025 Tayla Multani SOFTWARE QA SYSTEM SPECIALIST-C Referring Provider Active Start: February 21, 2025 End: February 21, 2025 Team Status: Inactive Member Role/Relationship Status Dates Dr. Kitty Siddiqui DO Primary Care Provider Active Start: March 03, 2025 End: March 03, 2025 Dr. Kitty Siddiqui DO Referring Provider Active Start: March 03, 2025 End: March 03, 2025 ERIK Villafana Attending Provider Active Start: March 03, 2025 End: March 03, 2025 Team Status: Inactive Member Role/Relationship Status Dates Dr. Kitty Siddiqui DO Primary Care Provider Active Start: March 04, 2025 End: March 04, 2025 ERIK Villafana Attending Provider Active Start: March 04, 2025 End: March 04, 2025 ERIK Villafana Referring Provider Active Start: March 04, 2025 End: March 04, 2025 Team Status: Inactive Member Role/Relationship Status Dates Dr. Kitty Sdidiqui DO Primary Care Provider Active Start: April 15, 2025 End: April 16, 2025 Dr. Pola Graff MD Emergency Provider Active Sta rt: April 15, 2025 End: April 16, 2025 Team Status: Inactive Member Role/Relationship Status Dates Dr. Kitty Siddiqui DO Primary Care Provider Active Start: April 18, 2025 End: April 18, 2025 Dr. Pola Graff MD Emergency Provider Active Sta rt: April 18, 2025 End: April 18, 2025 FOR RECORDS PERTAINING TO PATIENTS WHO [...] BE BASED ON THE PRIMARY CLINICAL RECORDS. [facility]. provides no warranty or guarantee of the accuracy or completeness of information in this document.
--- OUTSIDE RECORDS SUMMARY | 2025-04-22 21:10 | XMS RPT_ITS | CCD ---
Author Organization [facility] CliniSymo Care Team Providers Care Scientific Research Manager Name Role Phone Cogar MACHINE GUN MECHANIC Rosa N Unavailable Cogar MACHINE GUN MECHANIC Rosa N Unavailable [place] CHANNEL SUPERVISOR, CHANNEL SUPERVISOR-C Alia Primary Care Provider [place] CHANNEL SUPERVISOR, CHANNEL SUPERVISOR-C Alia Referring Provider Yuriy CHANNEL SUPERVISOR, CHANNEL SUPERVISOR-C Laura Attending Provider [place] CHANNEL SUPERVISOR, CHANNEL SUPERVISOR-C Alia Primary Care Provider [place] CHANNEL SUPERVISOR, CHANNEL SUPERVISOR-C Alia Referring Provider [phone] Yuriy CHANNEL SUPERVISOR, CHANNEL SUPERVISOR-C Laura Attending Provider Dr. Murali Bartlett [...] Referring Provider Tayla Jacobs Attending Provider [phone] Tayla Jacobs Referring Provider [phone] VIRIDIANA FAUSTIN MD Attending Unavailable KITTY SIDDIQUI [...] immune globulin, human Drug Allergy 04-16-2025 Rash [facility] (1 source) rabies immune globulin Drug allergy (disorder) 04-18-2025 [facility] Repository Medications Current Medications Medication Drug Class(es) [...] A DAY 7 April 16, 2025 12:00am [place] (Nk) (3 sources) Start: 02-16-2025 [place] (Nk) Active February 16, 2025 12:00am Vitamin [...] Department Summary on 04-15-2025 Emergency Department Summary [facility] Medical Records Department [address] [place] [address] Emergency Department Summary 04/15/25 MR#: [id number] Acct: [id number] Name: PRISCILLA WALTERS Rep #: [id number] : 2000 24 From: Pola Graff MD [...] and student 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 Normal [facility] DHEA Sulfateon 03-08-2025 DHEA SULFATE 116.0 ug/dL Normal 110.0-431.7 [facility] Comment on above: Order Comment: N Performed By: #### L 501.9985, L3300.1500, L3400.4800, L3100.5055, L3100.5400 ####[facility] [address] [place], [address] PROLACTIN 4465on 03-08-2025 PROLACTIN 20.4 ng/mL Normal 4.8-33.4 [facility] Comment on above: Performed By: #### L 501.9985, L3300.1500, L3400.4800, L3100.5055, L3100.5400 ####[facility] [address] [place], [address] Testosterone Freeon 03-08-20 25 TESTOSTER FREE 0.3 pg/mL Normal 0.0-4.2 [facility] Comment on above: Result Comment: Perf ormed at: - [facility] [address] [id number] Hand Stitcher: Clayton Bashir PhD, Phone: [phone] Performed at: - [facility] [address] [id number] Hand Stitcher: Payton Amezquita MD, Phone: [phone] Performed By: #### L 501.9985, L3300.1500, L3400.4800, L3100.5055, L3100.5400 ####[facility] [address] [place], [address] FSH and LHon 03-04-2025 FSH 7.9 mIU/mL Normal [facility] Comment on above: Result Comment: FEMA LE: Follicular: 1.4 - 18.1 mIU/mL Midcycle: 3.4 - 33.4 mIU/mL Luteal: 1.5 - 9.1 mIU/mL Post Menopause: 23.0 - 116.3 mIU/mL MALE: 1.4 - 18.1 mIU/mL Performed By: #### L 501.9985, L3300.1500, L3400.4800, L3100.5055, L3100.5400 ####[facility] [address] [place], [address] LH 5.5 mIU/mL Normal [facility] Comment on above: Result Comment: FEMA LE: Follicular: 1.9-12.5 mIU/mL Midcycle: 8.7-76.3 mIU/mL Luteal: 0.5-16.9 mIU/mL Post Menopause: 15.9-54.0 mIU/mL MALE: 20-70 Years: 1.5-9.3 mIU/mL >70 Years: 3.1-34.6 mIU/mL Performed By: #### L 501.9985, L3300.1500, L3400.4800, L3100.5055, L3100.5400 ####[facility] [address] [place], [address] Hemoglobin A1con 03-04-2025 HbA1c (Bld) [Mass fraction] 5.5 % Normal <=5.6 [facility] Comment on above: Result Comment: Norm al < 5.7 % Prediabetic 5.7 - 6.4 % Diabetic >or= 6.5 % Please note range changes. Performed By: #### L 501.9985, L3300.1500, L3400.4800, L3100.5055, L3100.5400 ####[facility] [address] [place], [place], [address] Hemoglobin A1c percentageOrd ered By: Tayla Multani on 03-04-2025 HbA1c (Bld) [Mass fraction] 5.5 % <5.7 [facility] Comment on above: Normal < 5.7 % Predi abetic 5.7 - 6.4 % Diabetic >or= 6.5 % Please note range changes. LH ser/plasOrdered By: Gi Multani on 03-04-2025 Lutropin Qn 5.5 m[IU]/mL [facility] Comment on above: FEMALE:Follicular: 1 .9-12.5 mIU/mLMidcycle: 8.7-76.3 mIU/mLLuteal: 0.5-16.9 mIU/mLPost Menopause: 15.9-54.0 mIU/mLMALE:20-70 Years: 1.5-9.3 mIU/mL>70 Years: 3.1-34.6 mIU/mL Serum or plasma free testost erone measurement (mass/volume)Ordered By: Tayla Multani on 03-04-2025 Testosterone Free [Mass/Vol] 0.3 pg/mL 0.0-4.2 [facility] Comment on above: Performed at: [address] [place] [id number] Director: Clayton Bashir PhD, Phone: [phone] at: [address] [id number] Director: Payton Amezquita MD, Phone: [phone] Serum or plasma prolactin me asurement (mass/volume)Ordered By: Tayla Multani on 03-04-2025 Prolactin [Mass/Vol] 20.4 ng/mL 4.8-33.4 [facility] Visit Reporton 03-03-2025 [facility] Visit Report [facility] [address], [address] [place] [address] OFFICE VISIT Date of Service: 03/03/25 MR#: [id number] Acct: [id number] Name: PRISCILLA WALTERS Rep #: [id number] : 2000 Provider: ERIK Lambert Age/Sex: 24/F Location: [facility] [place] Status: Signed Intake Vital Signs 02/16/25 13:50 03/03/25 14:24 Height 5 ft 2 in 5 ft 2 in Weight: 132 lb 132 lb BMI 24.1 24.1 BP 118/78 136/91 H Intake Visit Reasons: US F/U DISCUSS Client Services Account Manager Required: No Is patient in pain?: No [...] and student 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 Normal [facility] Pelvic w/ Transvaginalon Pelvic w/ Transvaginal [facility] Imaging Services [address] [place] [address] Pelvic w/ Transvaginal MR#: [id number] Acct: [id number] Name: PRISCILLA WALTERS Rep #: [id number] : 2000 F 24 From: Gustavo Wren MD PCP: Dr. Kitty Siddiqui, Status: REG CLI Study: Pelvic w/ Transvaginal Date of Exam: 02/21/25 Exam# [id number] Ordering Dr: Tayla Multani CHANNEL SUPERVISOR-C PROCEDURE: PELVIC W/ TRANSVAGINAL 02/21/2025 REASON FOR [...] free fluid is likely physiologic. Reading Location: [id number] CC: ERIK Multani; Dr. Kitty Siddiqui DO Career Orientation Teacher: Signed Normal [facility] Chlamydia/GC JERED aptimaon CHLAMY,NUC ACID Negative Normal Negative [facility] Comment on above: Performed By: #### L 0.1800, .1999, M1.3200 #### [facility] Laboratory [address] [place], [place], [address] GC BY NUC ACID Negative Normal Negative [facility] Comment on above: Result Comment: Perf ormed at: =G - [facility] [address] [id number] Hand Stitcher: Tangela Rawls MD, Phone: [phone] Performed By: #### L 0.1800, .1999, M100.3200 #### [facility] Laboratory [address] [place], [address] Genital Culture Comprehensiv galina 02-18-2025 VAC Reason for Exam: vaginal discharge Normal vaginal sandeep isolated. No yeast, Gardnerella, Neisseria or beta-hemolytic Streptococcus isolated. Normal [facility] Comment on above: Performed By: #### L 7000.1800, .1999, M100.3200 #### [facility] Laboratory [address] [place], [address] Chlamydia trachomatis rRNA d etection by probe and target amplification methodOrdered By: Tayla Multani on 02-16-2025 C. trachomatis rRNA JERED+probe Ql (Unsp spec) Negative Negative [facility] Genital cultureOrdered By: Ashlee Multani on 02-16-2025 Source specific culture Neisseria or beta-hemolytic Streptococcus isolated. [facility] Gram Stainon 02-16-2025 GS Reason for Exam: vaginal discharge Gram Stain 2+ White Blood Cells 4+ Gram positive rods No Gram negative diplococci Score = 0 Interpretation: 0-3 Normal, 4-6 Intermediate, 7-10 Positive BV Normal [facility] Comment on above: Performed By: #### L 7000.1800, M100.2000, M100.3200 #### [facility] Laboratory [address] [place], [place], [address] Gram stainOrdered By: Tayla Multani on 02-16-2025 Microscopic observation Gram stain Nom (Unsp spec) [facility] Laboratory - Chemistry and C hemistry - challengeOrdered By: Tayla Multani on 02-16-2025 Bilirubin Ql (U) Negative [facility] Glucose Ql (U) Negative [facility] Ketones Ql (U) Negative [facility] pH (U) 8 [pH] [facility] Specific gravity (U) [Rel density] 1.030 [facility] Urobilinogen (U) [Mass/Vol] Negative [facility] HCG ( test) Ql (U) Negative [facility] Laboratory - Hematology and Cell countsOrdered By: Tayla Multani on 02-16-2025 Hemoglobin Ql (U) Negative [facility] Laboratory - Specimen inform ationOrdered By: Tayla Multani on 02-16-2025 Clarity (U) Clear [facility] Color (U) Yellow [facility] Laboratory - UrinalysisOrder ed By: Tayla Multani on 02-16-2025 Nitrite Ql (U) Negative [facility] Protein Ql (U) Negative [facility] Neisseria gonorrhoeae nuclei c acid detection by amplified probe techniqueOrdered By: Tayla Multani on 02-16-2025 N. gonorrhoeae DNA JERED+probe Ql (Unsp spec) Negative Negative [facility] Comment on above: Performed at: =[facility] Melba álvarez [address] [id number] Director: Tangela Rawls MD, Phone: [phone] No Panel InformationOrdered By: Tayla Multani on 02-16-2025 POC Trichomonas (Rapid) Negative [facility] Urine Leukocytes Negatve [facility] Urine Non-Hemolyzed Blood [facility] Visit Reporton 02-16-2025 [facility] Visit Report [facility] [address] [place] [address] OFFICE VISIT Date of Service: 02/16/25 MR#: [id number] Acct: [id number] Name: PRISCILLA WALTERS Rep #: [id number] : 2000 Provider: ERIK Lambert Age/Sex: 24/F Location: [facility] [place] Status: Signed Intake Vital Signs 06/24/24 08:24 02/16/25 13:50 Height 5 ft 2 in 5 ft 2 in Weight: 132 lb BMI 24.1 BP 118/78 Intake Visit Reasons: AUB/pelvic pain Client Services Account Manager Required: No Is patient in pain?: No [...] and student 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 Normal [facility] T4 Free Directon 02-16-2025 T4 FREE DIRECT 1.00 ng/dL Normal 0.76-1.46 [facility] Comment on above: Performed By: #### L 503.0106, L506.0400, L501.9520 ####[facility] [address] [place], [place], [address] T4 freeOrdered By: Tayla oneal on 02-16-2025 Free T4 [Mass/Vol] 1.00 ng/dL 0.76-1.46 [facility] TSH DL <= 0.005 mIU/L QnOrde red By: Tayla Multani on 02-16-2025 TSH Qn 1.370 uIU/mL 0.300-4.200 [facility] Thyroid Stim Hormone (TSH)on 02-16-2025 TSH 1.370 uIU/mL Normal 0.300-4.200 [facility] Comment on above: Performed By: #### L 503.0106, L506.0400, L501.9520 #### [facility] Laboratory [address] [place], [place], [address] Vitamin B12on 02-16-2025 Cobalamin (Vitamin B12) [Mass/Vol] 1890 pg/mL High 180-914 [facility] Comment on above: Performed By: #### L 503.0106, L506.0400, L501.9520 #### [facility] Laboratory [address] [place], [address] Vitamin B12 ser/plasOrdered By: Tayla Multani on 02-16-2025 Cobalamin (Vitamin B12) [Mass/Vol] 1890 pg/mL High 180-914 [facility] Brain W/WO Contraston 2024 Brain W/WO Contrast [facility] Imaging Services [address] [place] [address] Brain W/WO Contrast MR#: [id number] Acct: [id number] Name: PRISCILLA WALTERS Rep #: [id number] : 2000 F 24 From: Gentry Haider PCP: Dr. Kitty Siddiqui DO Status: REG CLI Study: Brain W/WO Contrast Date of Exam: 01/31/25 Exam# [id number] Ordering Dr: Viridiana Faustin MD PROCEDURE: BRAIN [...] No significant abnormality is identified. Reading Location: [place] [address] CC: Dr. Viridiana Faustin MD; Dr. Kitty Siddiqui DO Career Orientation Teacher: Signed Normal [facility] Magnetic resonance imaging r eportOrdered By: Gentry Guido on 01-31-2025 Study report [facility] Imaging Services [address] [place] [id number] Brain W/WO Contrast MR#: [id number] Acct: [id number] Name: PRISCILLA WALTERS Rep #: [id number] : 2000 F 24 From: Alan Guido MD PCP: Dr. Kitty Siddiqui, Status: REG CLI Study:Brain W/WO Contrast Date of Exam: 01/31/25 Exam# [id number] Ordering Dr: Bernardo Faustin MD PROCEDURE: BRAIN [...] No significant abnormality is identified. Reading Location: [place] [address] CC: Dr. Viridiana Faustin MD; Dr. Kitty Siddiqui DO ~ Career Orientation Teacher: Signed [facility] METon 01-16-2025 Methylmalonic Acid 161 nmol/L Normal 0-378 [facility] Comment on above: Result Comment: This test was developed and its performance characteristics determined by [facility]. It has not been cleared or approved by the Food and Drug Administration. Performed At: [address] [id number] Alirio Cain MD Ph:[phone] Performed By: #### G FR, CMP, ANEU, A1C, ADIFF, LIPID, TSH, CBC #### [facility] [address] [place], [place] [address] [place] 01-12-2025 Lyme Total Antibody JAD Negative Normal Negative [facility] Comment on above: Result Comment: Lyme [...] to 14 days is recommended. Performed At: [address] [id number] Krysten Arnold PhD Ph:[phone] Performed By: #### G FR, CMP, ANEU, A1C, ADIFF, LIPID, TSH, CBC #### [address] [address] .GFRon 01-11-2025 Estimated Glomerular Filtration Rate 74 ml/min/1.73sqm Normal [facility] Comment on above: Result Comment: Stages [...] ANEU, A1C, ADIFF, LIPID, TSH, CBC #### [address] [address] B12on 01-11-2025 Vitamin B12 Lvl >2000 High 211-911 [facility] Comment on above: Performed By: #### G FR, CMP, ANEU, A1C, ADIFF, LIPID, TSH, CBC #### [address] [address] BMPon 01-11-2025 BUN/Creatinine Ratio 16 ratio Normal 7-27 [facility] Comment on above: Performed By: #### F T4, TSH, 071930, GFR, 553417, BMP #### [address] [address] #### B12 #### [facility] [address] [place] [address] Calcium [Mass/Vol] 9.4 mg/dL Normal 8.4-10.2 [facility] Comment on above: Performed By: #### F T4, TSH, 276904, GFR, 679003, BMP #### [place] [address] #### B12 #### [address] [address] Chloride [Moles/Vol] 104 mmol/L Normal 98-107 [facility] Comment on above: Performed By: #### F T4, TSH, 216018, GFR, 464907, BMP #### [place] [address] #### B12 #### [address] [address] CO2 [Moles/Vol] 29 mmol/L Normal 22-29 [facility] Comment on above: Performed By: #### F T4, TSH, 303039, GFR, 16410909, BMP #### [place] [address] #### B12 #### [place] [address] Creatinine [Mass/Vol] 1.09 mg/dL High 0.51-0.95 [facility] Comment on above: Performed By: #### F T4, TSH, 555545, GFR, 087398, BMP #### [place] [address] #### B12 #### [place] [address] Electrolyte Balance 8.0 mEq/L Normal 4.0-15.0 [facility] Comment on above: Performed By: #### F T4, TSH, 876553, GFR, 276370, BMP #### [place] [address] #### B12 #### [place] [id number] Glucose [Mass/Vol] 96 mg/dL Normal 70-105 [facility] Comment on above: Performed By: #### F T4, TSH, 236265, GFR, 052960, BMP #### [place] [address] #### B12 #### [address] [address] Potassium [Moles/Vol] 4.5 mmol/L Normal 3.5-5.1 [facility] Comment on above: Performed By: #### F T4, TSH, 341763, GFR, 861039, BMP #### [address] [address] #### B12 #### [address] [address] Sodium [Moles/Vol] 141 mmol/L Normal 136-145 [facility] Comment on above: Performed By: #### F T4, TSH, 194807, GFR, 302925, BMP #### [place] [address] #### B12 #### [place] [address] Urea nitrogen [Mass/Vol] 17 mg/dL Normal 7-18 [facility] Comment on above: Performed By: #### F T4, TSH, 588182, GFR, 928375, BMP #### [place] [address] #### B12 #### [address] [address] FT4on 01-11-2025 Free T4 [Mass/Vol] 0.67 ng/dL Low 0.76-1.46 [facility] Comment on above: Performed By: #### G FR, CMP, ANEU, A1C, ADIFF, LIPID, TSH, CBC #### [place] [address] LABORATORYOrdered By: SYSTEM SYSTEM on 01-11-2025 Calcium [...] 01-11-2025 TSH Qn 2.13 m[IU]/L Normal 0.36-3.74 [facility] Comment on above: Performed By: #### F T4, TSH, 013047, GFR, 422374, BMP #### [facility] [address] [place], [place] [address] #### B12 #### [address] [address] .Auto Diffon 08-03-2024 Basophil, Absolute 0.1 10 3/mcL Normal 0.0-0.2 [facility] Comment on above: Performed By: #### G FR, CMP, ANEU, A1C, ADIFF, LIPID, TSH, CBC #### [address] [address] Basophils/100 WBC (Bld) 2.0 % Normal 0.0-2.5 [facility] Comment on above: Performed By: #### G FR, CMP, ANEU, A1C, ADIFF, LIPID, TSH, CBC #### [address] [address] Eosinophil, Absolute 0.1 10 3/mcL Normal 0.0-0.7 [facility] Comment on above: Performed By: #### G FR, CMP, ANEU, A1C, ADIFF, LIPID, TSH, CBC #### [address] [address] Eosinophils/100 WBC (Bld) 2.2 % Normal 0.0-7.0 [facility] Comment on above: Performed By: #### G FR, CMP, ANEU, A1C, ADIFF, LIPID, TSH, CBC #### [address] [address] Lymphocyte, Absolute 2.3 10 3/mcL Normal 0.9-4.3 [facility] Comment on above: Performed By: #### G FR, CMP, ANEU, A1C, ADIFF, LIPID, TSH, CBC #### [address] [address] Lymphocytes/100 WBC (Bld) 34.8 % Normal 20.0-40.0 [facility] Comment on above: Performed By: #### G FR, CMP, ANEU, A1C, ADIFF, LIPID, TSH, CBC #### [address] [address] Monocyte, Absolute 0.4 10 3/mcL Normal 0.1-1.4 [facility] Comment on above: Performed By: #### G FR, CMP, ANEU, A1C, ADIFF, LIPID, TSH, CBC #### [address] [address] Monocytes/100 WBC (Bld) 6.2 % Normal 2.0-13.0 [facility] Comment on above: Performed By: #### G FR, CMP, ANEU, A1C, ADIFF, LIPID, TSH, CBC #### [place] [address] [place], [place] [address] Neutrophils/100 WBC (Bld) 54.8 % Normal 50.0-75.0 [facility] Comment on above: Performed By: #### G FR, CMP, ANEU, A1C, ADIFF, LIPID, TSH, CBC #### [place] [address] [place], [place] [address] .GFRon 08-03-2024 GFR 84 ml/min/1.73sqm Normal [facility] Comment on above: Result Comment: GFR [...] ANEU, A1C, ADIFF, LIPID, TSH, CBC #### [place] [address] [place], [place] [address] GFR Non- 69 ml/min/1.73sqm Normal [facility] Comment on above: Result Comment: GFR [...] ANEU, A1C, ADIFF, LIPID, TSH, CBC #### [address] [address] .NEUABSon 08-03-2024 Neutrophil, Absolute 3.6 10 3/mcL Normal 2.3-8.1 [facility] Comment on above: Performed By: #### G FR, CMP, ANEU, A1C, ADIFF, LIPID, TSH, CBC #### [place] [address] A1Con 08-03-2024 Glucose [Mass/Vol] 117 mg/dL Normal [facility] Comment on above: Result Comment: Rhonda mated Average Glucose calculated by equation ((28.7xA1C)-46.7) Estimated average glucose (eAG) is a calculated value from Hemoglobin A1C and is outreach representative of the average blood glucose level in the last 2-3 month period. Normal range: less than 114 mg/dL Performed By: #### G FR, CMP, ANEU, A1C, ADIFF, LIPID, TSH, CBC #### [place] [id number] HbA1c (Bld) [Mass fraction] 5.7 % Normal 4.3-6.4 [facility] Comment on above: Performed By: #### G FR, CMP, ANEU, A1C, ADIFF, LIPID, TSH, CBC #### [place] [address] CBCon 08-03-2024 Erythrocyte distribution width (RBC) [Ratio] 12.8 % Normal 11.5-15.5 [facility] Comment on above: Performed By: #### G FR, CMP, ANEU, A1C, ADIFF, LIPID, TSH, CBC #### [place] [id number] Hematocrit (Bld) [Volume fraction] 40.3 % Normal 34.0-46.0 [facility] Comment on above: Performed By: #### G FR, CMP, ANEU, A1C, ADIFF, LIPID, TSH, CBC #### [place] [address] Hgb 13.6 G/dL Normal 12.0-16.0 [facility] Comment on above: Performed By: #### G FR, CMP, ANEU, A1C, ADIFF, LIPID, TSH, CBC #### [place] [address] MCH (RBC) [Entitic mass] 30.1 pg Normal 27.0-33.0 [facility] Comment on above: Performed By: #### G FR, CMP, ANEU, A1C, ADIFF, LIPID, TSH, CBC #### [place] [address] MCHC 33.8 G/dL Normal 32.0-36.0 [facility] Comment on above: Performed By: #### G FR, CMP, ANEU, A1C, ADIFF, LIPID, TSH, CBC #### [place] [address] MCV (RBC) [Entitic vol] 89.3 fL Normal 80.0-99.0 [facility] Comment on above: Performed By: #### G FR, CMP, ANEU, A1C, ADIFF, LIPID, TSH, CBC #### [place] [address] Platelet 235 10 3/mcL Normal 150-450 [facility] Comment on above: Performed By: #### G FR, CMP, ANEU, A1C, ADIFF, LIPID, TSH, CBC #### [address] [address] Platelet mean volume (Bld) [Entitic vol] 8.1 fL Normal 6.6-10.5 [facility] Comment on above: Performed By: #### G FR, CMP, ANEU, A1C, ADIFF, LIPID, TSH, CBC #### [place] [address] RBC 4.51 10 6/mcL Normal 4.10-5.30 [facility] Comment on above: Performed By: #### G FR, CMP, ANEU, A1C, ADIFF, LIPID, TSH, CBC #### [address] [address] WBC 6.6 10 3/mcL Normal 4.5-10.8 [facility] Comment on above: Performed By: #### G FR, CMP, ANEU, A1C, ADIFF, LIPID, TSH, CBC #### [address] [address] CMPon 08-03-2024 Albumin Level 3.8 G/dL Normal 3.5-5.0 [facility] Comment on above: Performed By: #### G FR, CMP, ANEU, A1C, ADIFF, LIPID, TSH, CBC #### [address] [address] Albumin/Globulin [Mass ratio] 1.2 {ratio} Normal 1.1-2.5 [facility] Comment on above: Performed By: #### G FR, CMP, ANEU, A1C, ADIFF, LIPID, TSH, CBC #### [address] [address] ALP [Catalytic activity/Vol] 79 U/L Normal 40-135 [facility] Comment on above: Performed By: #### G FR, CMP, ANEU, A1C, ADIFF, LIPID, TSH, CBC #### [address] [address] ALT [Catalytic activity/Vol] 21 U/L Normal 14-59 [facility] Comment on above: Performed By: #### G FR, CMP, ANEU, A1C, ADIFF, LIPID, TSH, CBC #### [address] [address] AST [Catalytic activity/Vol] 15 U/L Normal 10-40 [facility] Comment on above: Performed By: #### G FR, CMP, ANEU, A1C, ADIFF, LIPID, TSH, CBC #### [address] [address] Bili Total 0.4 mg/dL Normal 0.2-1.0 [facility] Comment on above: Result Comment: Use of this assay is not recommended for patients undergoing treatment with eltrombopag due to the potential for falsely elevated results. Performed By: #### G FR, CMP, ANEU, A1C, ADIFF, LIPID, TSH, CBC #### [place] [address] BUN/Creatinine Ratio 16 ratio Normal 7-27 [facility] Comment on above: Performed By: #### G FR, CMP, ANEU, A1C, ADIFF, LIPID, TSH, CBC #### [place] [address] Calcium [Mass/Vol] 9.4 mg/dL Normal 8.4-10.2 [facility] Comment on above: Performed By: #### G FR, CMP, ANEU, A1C, ADIFF, LIPID, TSH, CBC #### [place] [address] Chloride [Moles/Vol] 105 mmol/L Normal 98-107 [facility] Comment on above: Performed By: #### G FR, CMP, ANEU, A1C, ADIFF, LIPID, TSH, CBC #### [place] [address] CO2 [Moles/Vol] 30 mmol/L High 22-29 [facility] Comment on above: Performed By: #### G FR, CMP, ANEU, A1C, ADIFF, LIPID, TSH, CBC #### [place] [address] Creatinine [Mass/Vol] 1.01 mg/dL Normal 0.55-1.02 [facility] Comment on above: Result Comment: Test ing performed on Siemens Dimension EXL analyzer using a modified kinetic Suypaa technique. Performed By: #### G FR, CMP, ANEU, A1C, ADIFF, LIPID, TSH, CBC #### [place] [address] Electrolyte Balance 5.0 mEq/L Normal 4.0-15.0 [facility] Comment on above: Performed By: #### G FR, CMP, ANEU, A1C, ADIFF, LIPID, TSH, CBC #### [address] [address] Globulin 3.1 G/dL Normal [facility] Comment on above: Performed By: #### G FR, CMP, ANEU, A1C, ADIFF, LIPID, TSH, CBC #### [address] [address] Glucose [Mass/Vol] 86 mg/dL Normal 70-105 [facility] Comment on above: Performed By: #### G FR, CMP, ANEU, A1C, ADIFF, LIPID, TSH, CBC #### [address] [address] Potassium [Moles/Vol] 5.3 mmol/L High 3.5-5.1 [facility] Comment on above: Performed By: #### G FR, CMP, ANEU, A1C, ADIFF, LIPID, TSH, CBC #### [address] [address] Sodium [Moles/Vol] 140 mmol/L Normal 136-145 [facility] Comment on above: Performed By: #### G FR, CMP, ANEU, A1C, ADIFF, LIPID, TSH, CBC #### [address] [address] Total Protein 6.9 G/dL Normal 6.4-8.2 [facility] Comment on above: Performed By: #### G FR, CMP, ANEU, A1C, ADIFF, LIPID, TSH, CBC #### [address] [address] Urea nitrogen [Mass/Vol] 16 mg/dL Normal 7-18 [facility] Comment on above: Performed By: #### G FR, CMP, ANEU, A1C, ADIFF, LIPID, TSH, CBC #### [address] [address] LABORATORYOrdered By: SYSTEM SYSTEM on 08-03-2024 Albumin [...] calculated value from Hemoglobin A1C and is outreach representative of the average blood glucose level [...] 08-03-2024 Cholesterol [Mass/Vol] 165 mg/dL Normal 0-200 [facility] Comment on above: Result Comment: Chol esterol Reference Interval: Less than 200 Desirable 200-239 Borderline high risk 240 and above High risk Performed By: #### G FR, CMP, ANEU, A1C, ADIFF, LIPID, TSH, CBC #### [address] [address] Cholesterol in HDL [Mass/Vol] 66 mg/dL High 40-60 [facility] Comment on above: Performed By: #### G FR, CMP, ANEU, A1C, ADIFF, LIPID, TSH, CBC #### [address] [address] Cholesterol in LDL [Mass/Vol] 93 mg/dL Normal 0-130 [facility] Comment on above: Performed By: #### G FR, CMP, ANEU, A1C, ADIFF, LIPID, TSH, CBC #### [address] [address] Triglyceride [Mass/Vol] 28 mg/dL Normal 0-150 [facility] Comment on above: Result Comment: Trig lyceride Reference Interval: Less than 150 Normal 150-199 Borderline high risk 200-499 High risk 500 or higher Very high risk Performed By: #### G FR, CMP, ANEU, A1C, ADIFF, LIPID, TSH, CBC #### [place] [id number] [place], [place] [address] TSHon 08-03-2024 TSH Qn 0.73 m[IU]/L Normal 0.36-3.74 [facility] Comment on above: Performed By: #### G FR, CMP, ANEU, A1C, ADIFF, LIPID, TSH, CBC #### [place] [address] [place], [place] [address] Urgent Care Visit Reporton 1 Urgent Care Visit Report [facility] [address], [address] [place] [address] OFFICE VISIT Date of Service: 08/03/24 MR#: [id number] Acct: [id number] Name: PRISCILLA WALTERS Rep #: [id number] : 2000 Provider: CHARBEL Monreal Age/Sex: 23/F Location: [facility] Status: Signed Intake Vital Signs 06/24/24 [...] SWOLLEN EYE Chief Complaint: right eye swollen Client Services Account Manager Required: No Accompanied by: Mother Is patient [...] for a swollen right eye since yesterday. 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 Qiay-cwy-bheolxg oral Benadryl taken without assist last evening. No other associated symptoms and no other alleviating/aggravati ng factors. ROS Const Constitutional: No other (As above) Exam Const General: cooperative, healthy appearing and no acute distress Nutritional Appearance: average body habitus Orientation: alert and awake [facility] Head: normal to inspection Ears: hearing [...] the above. This note was generated with Accolo dictation software. It may contain incorrect words, [...] Risk S (more content not included)... Normal [facility] CBC-Complete Blood Cnt No Di ffon 06-24-2024 Erythrocyte distribution width (RBC) [Ratio] 11.8 % Normal 11.6-14.6 [facility] Comment on above: Performed By: #### L 506.1000, L503.0105, L503.6030, L100.0500 ####[facility] [address] [place], [address] Hematocrit (Bld) [Volume fraction] 43.6 % Normal 37-47 [facility] Comment on above: Performed By: #### L 506.1000, L503.0105, L503.6030, L100.0500 ####[facility] [address] [place], [address] Hemoglobin (Bld) [Mass/Vol] 14.3 g/dL Normal 12.0-15.0 [facility] Comment on above: Performed By: #### L 506.1000, L503.0105, L503.6030, L100.0500 ####[facility] [address] [place], [address] MCH (RBC) [Entitic mass] 29.1 pg Normal 27.0-32.0 [facility] Comment on above: Performed By: #### L 506.1000, L503.0105, L503.6030, L100.0500 ####[facility] [address] [place], [address] MCHC (RBC) [Mass/Vol] 32.8 g/dL Normal 32-36 [facility] Comment on above: Performed By: #### L 506.1000, L503.0105, L503.6030, L100.0500 ####[facility] [address] [place], [address] MCV (RBC) [Entitic vol] 88.8 fL Normal 81-99 [facility] Comment on above: Performed By: #### L 506.1000, L503.0105, L503.6030, L100.0500 ####[facility] [address] [place], [address] Platelet mean volume (Bld) [Entitic vol] 9.3 fL Normal 6.2-12.0 [facility] Comment on above: Performed By: #### L 506.1000, L503.0105, L503.6030, L100.0500 ####[facility] [address] [place], [address] Platelets (Bld) [#/Vol] 293 10*3/uL Normal 150-450 [facility] Comment on above: Performed By: #### L 506.1000, L503.0105, L503.6030, L100.0500 ####[facility] [address] [place], [address] RBC (Bld) [#/Vol] 4.91 10*6/uL Normal 4.2-5.4 [facility] Comment on above: Performed By: #### L 506.1000, L503.0105, L503.6030, L100.0500 ####[facility] [address] [place], [address] RDW SD 38.0 fl Normal 35.1-43.9 [facility] Comment on above: Performed By: #### L 506.1000, L503.0105, L503.6030, L100.0500 ####[facility] [address] [place], [address] WBC (Bld) [#/Vol] 5.4 10*3/uL Normal 4.4-11.0 [facility] Comment on above: Performed By: #### L 506.1000, L503.0105, L503.6030, L100.0500 ####[facility] [address] [place], [address] Iron+Iron Binding Capacityon 06-24-2024 Iron [Mass/Vol] 123 ug/dL Normal 50-170 [facility] Comment on above: Performed By: #### L 506.1000, L503.0105, L503.6030, L100.0500 ####[facility] [address] [place], [address] IRON SATURATION 27.8 Normal 15.0-55.0 [facility] Comment on above: Performed By: #### L 506.1000, L503.0105, L503.6030, L100.0500 ####[facility] [address] [place], [address] TIBC 442 ug/dL Normal 250-450 [facility] Comment on above: Performed By: #### L 506.1000, L503.0105, L503.6030, L100.0500 ####[facility] [address] [place], [address] Urgent Care Visit Reporton 08-24-2023 Urgent Care Visit Report [facility] [address], [address] [place] [address] OFFICE VISIT Date of Service: 06/24/24 MR#: [id number] Acct: [id number] Name: PRISCILLA WALTERS Rep #: [id number] : 2000 Provider: CHARBEL Waller Age/Sex: 23/F Location: [facility] Status: Signed Intake Vital Signs 02/19/24 15:11 [...] Fatigue, SHAKEY FEELING Chief Complaint: fatigue, dizziness Client Services Account Manager Required: No Is patient in pain?: No [...] 1 week, ran covid/influenza test on patient. 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 [place], [place], [address] Vitamin D,25 Hydroxyon 06-24 Vitamin D 25-OH 18.6 ng/mL Normal [facility] Comment on above: Result Comment: Sandra min D 25(OH) Status Range Deficiency <20 ng/mL (50nmol/L) Insufficiency 20 - 30 ng/mL (50 - 75 nmol/L) Sufficiency 30 - 100 ng/mL (75 - 250 nmol/L) Toxicity >100 ng/mL (>250 nmol/L) Performed By: #### L 506.1000, L503.0105, L503.6030, L100.0500 ####[facility] [address] [place], [place], [address] Amorphous sediment detection in urine sediment by light microscopyon 06-13-2022 Amorphous sediment LM Ql (Urine sed) 1+ [facility] Work Phone: Basophil percentageon 2021 Basophil percentage 25-50 SEEN /hpf 0-5 [facility] Work Phone: Bilirubin Test strip Ql (U)o n 06-13-2022 Bilirubin Ql (U) 3 mg/dL Negative [facility] Work Phone: Comment on above: COLOR OF URINE MAY A FFECT DIPSTICK RESULTS. Ketones Test strip Ql (U)on 06-13-2022 Ketones Ql (U) Negative Negative [facility] Work Phone: Mucus LM Ql (Urine sed)on Mucus Ql (Urine sed) 0 SEEN /hpf [facility] Work Phone: Nitrite Test strip Ql (U)on 06-13-2022 Nitrite Ql (U) Positive Negative [facility] Work Phone: No Panel Informationon 06-13 Urine Transitional Epithelial Cells 0-5 SEEN /hpf 0-5 [facility] Work Phone: Protein Test strip Ql (U)on 06-13-2022 Protein Ql (U) 30 mg/dl Negative [facility] Work Phone: Squamous epithelial cells de tection in urine sediment by light microscopyon 06-13-2022 Epithelial cells.squamous LM Ql (Urine sed) 0-5 SEEN /hpf -10 [facility] Work Phone: Urine blood detectionon 06-04 RBC Ql (U) 150 /ul Negative [facility] Work Phone: RBC Ql (U) 10-25 SEEN /hpf 0-5 [facility] Work Phone: Urine clarityon 06-13-2022 Clarity (U) Cloudy Clear [facility] Work Phone: Urine color determinationon 06-13-2022 Color (U) [place] Yellow [facility] Work Phone: Urine glucose detectionon Glucose Ql (U) Normal mg/dl Normal [facility] Work Phone: Urine leukocyte esterase det ection by dipstickon 06-13-2022 Leukocyte esterase Test strip Ql (U) 100 /ul Negative [facility] Work Phone: Urine pHon 06-13-2022 pH (U) 6.0 [pH] 5.0 - 8.0 [facility] Work Phone: Urine sediment bacteria coun t by microscopy (number/high power field)on 06-13-2022 Bacteria LM.HPF (Urine sed) [#/Area] 4 /[HPF] None Seen [facility] Work Phone: Urine sediment renal epithel ial cell count by microscopy (number/high power field)on 06-13-2022 Epithelial cells.renal LM.HPF (Urine sed) [#/Area] 5 /[HPF] 0-5 [facility] Work Phone: Urine specific gravity measu rementon 06-13-2022 Specific gravity (U) [Rel density] 1.020 1.002-1.030 [facility] Work Phone: Urobilinogen Auto test strip Ql (U)on 06-13-2022 Urobilinogen Ql (U) 4 mg/dl Normal [facility] Work Phone: Laboratory - Chemistry and C hemistry - challengeon 06-12-2022 HCG ( test) Ql (U) Negative [facility] Work Phone: Bilirubin Ql (U) Negative [facility] Work Phone: Glucose Ql (U) Negative [facility] Work Phone: Ketones Ql (U) Trace (5) [facility] Work Phone: pH (U) 6.5 [pH] [facility] Work Phone: Specific gravity (U) [Rel density] 1.020 [facility] Work Phone: Urobilinogen (U) [Mass/Vol] Negative [facility] Work Phone: Laboratory - Hematology and Cell countson 06-12-2022 Hemoglobin Ql (U) Hemolyzed [facility] Work Phone: Laboratory - Specimen inform ationon 06-12-2022 Clarity (U) Cloudy [facility] Work Phone: Color (U) ORANGE [facility] Work Phone: Laboratory - Urinalysison Nitrite Ql (U) Negative [facility] Work Phone: Protein Ql (U) Negative [facility] Work Phone: No Panel Informationon 06-12 Urine Leukocytes Positive [facility] Work Phone: Urine Non-Hemolyzed Blood Moderate [facility] Work Phone: [phone] Basophil percentageon 2021 Bilirubin [Mass/Vol] 0.40 mg/dL 0.20-1.00 [facility] Work Phone: [phone] Comment on above: For patients on eltr ombopag therapy, use of Dimension [place] TBIL is not recommended. Cholesterol [Mass/Vol] 170 mg/dL <200 [facility] Work Phone: [phone] Comment on above: <200 mg/dL Desirable 200-240 mg/dL Borderline >240 mg/dL High Risk Protein [Mass/Vol] 7.4 g/dL 6.4-8.2 [facility] Work Phone: [phone] Triglyceride [Mass/Vol] 112 mg/dL <199 [facility] Work Phone: Comment on above: The drugs N-Acetylcy steine and Metamizole may falsely depress this assay.Serum Triglycerides Reference Interval Normal <150 mg/dL Borderline high 150 - 199 mg/dL High 200 - 499 mg/dL Very High > or = 500 mg/dL Direct bilirubinon Bilirubin.direct [Mass/Vol] 0.10 mg/dL 0.00-0.30 [facility] Work Phone: [phone] Laboratory - Chemistry and C hemistry - challengeon 06-06-2022 ALP [Catalytic activity/Vol] 61 U/L 45-117 [facility] Work Phone: [phone] ALT [Catalytic activity/Vol] 37 U/L 13-56 [facility] Work Phone: [phone] Globulin (S) [Mass/Vol] 3.7 g/dL 2.2-4.2 [facility] Work Phone: [phone] Serum or plasma albumin eugene urement (mass/volume)on 06-06-2022 Albumin [Mass/Vol] 3.7 g/dL 3.2-5.0 [facility] Work Phone: [phone] Serum or plasma cholesterol in HDL measurement (mass/volume)on 11-03-2022 Cholesterol in HDL [Mass/Vol] 46 mg/dL >40 [facility] Work Phone: Comment on above: The drugs N-Acetylcy steine and Metamizole may falsely depress this assay. Reference Range HDL <40 mg/dL Low HDL Cholesterol HDL >or= 60 mg/dL High HDL Cholesterol Serum or plasma cholesterol in VLDL measurement (mass/volume)on 06-06-2022 Cholesterol in VLDL [Mass/Vol] 22 mg/dL 5-40 [facility] Work Phone: Serum or plasma low density lipoprotein (LDL) cholesterol measurement (mass/volume)on 06-06-2022 Cholesterol in LDL [Mass/Vol] 102 mg/dL 0-130 [facility] Work Phone: Thin prep Papanicolaou smear with manual screeningon 06-06-2022 Thin prep Papanicolaou smear with manual screening 20 U/L 15-37 [facility] Work Phone: Basophil percentageon 2021 C. trachomatis DNA JERED+probe Ql (Unsp spec) Negative Negative [facility] Work Phone: Neisseria gonorrhoeae detect ion by PCRon 04-17-2022 N. gonorrhoeae DNA JERED+probe Ql (Cervical mucus) Negative Negative [facility] Work Phone: Progress Noteon 12-13-2021 [employer] Authentication Interface Message Text Priscilla Walters is [...] well. She is following with an adult watershed engineer. 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 Priscilla is active with no history of activity intolerance. She was in track, gymnastics, and cheer leading in high school. She is now heading to college at the [employer] to study Horse production and management. [...] PO daily May 29, 2020 2:47pm 05-29-2020 [facility] ([id number]) No facility-administered encounter medications on file as of 12/13/2021. Allergies: No Known Allergies Physical Exam: Vitals: 12/13/21 0952 BP: 115/64 Pulse: 66 Resp: 16 Blood pressure percentiles are not available for patients who are 18 years or older. Height: 158 cm 21 %ile (Z= -0.81) based on CDC (Girls, 2-20 Years) Chuibcy-atv-sxq data based on Stature recorded on 12/13/2021. Weight - Scale: 56.7 kg 47 %ile (Z= -0.07) based on CDC (Girls, 2-20 Years) qzvscl-dzs-tlw data using vitals from 12/13/2021. Physical Exam [...] disease. Plan/Recommendations: Recommend follow up with Adult Fast Food Fry Cook who specializes in Lipoprotein A disorders. No cardiac contraindications to physical activities. No need for f/u in Pediatric Cardiology. Counseling and/or coordination of care (face to face time in the office/outpatient setting or floor/unit time in the hospital) was gre (more content not included)... Normal [facility] Laboratory - Chemistry and C hemistry - challengeon 12-10-2021 Lipoprotein a [Moles/Vol] 150.1 nmol/L [facility] Work Phone: Comment on above: Note: Values greater than or equal to 75.0 nmol/L may indicate an independent risk factor for CHD, but must be evaluated with caution when applied to non- populations due to the influence of genetic factors on Lp(a) across ethnicities.Performed at: [facility] [id number] Director: Clayton Bashir PhD, Phone: [phone] Progress Noteon 12-10-2021 [employer] Authentication Interface Message Text Priscilla Walters is [...] high (like other illegal drugs, prescription or menr-uhq-wksywhy medications, and things that you sniff, aviles, or vape)? Put 0 if none.: 0 4. Use any tobacco or nicotine products (for example, cigarettes, e-cigarettes, hookahs or smokeless tobacco)?: 0 5. Have you ever ridden in a CAR driven by someone (including yourself) who was high or had been using alcohol or drugs?: No Electronically signed by: Jazlyn Jones, [facility] ID: Priscilla Walters is a 21 y.o. [...] (!) 156.2 cm, weight 57.3 kg. Normal [facility] Basophil percentageon 2021 C. trachomatis DNA JERED+probe Ql (Unsp spec) Negative Negative [facility] Work Phone: Neisseria gonorrhoeae detect ion by PCRon 11-07-2021 N. gonorrhoeae DNA JERED+probe Ql (Cervical mucus) Negative Negative [facility] Work Phone: Office Visit: UC: earacheon 04-08-2017 Documentation of current medications (procedure) T Invalid Interpretation Code [facility] Work Phone: Documentation of current medications (procedure) Done Invalid Interpretation Code [facility] Work Phone: Tobacco smoking status NHIS Never Invalid Interpretation Code [facility] Work Phone: Tobacco use CPHS Never smoker Invalid Interpretation Code [facility] Work Phone: Culture, urine Bacteria identified Cx Nom (U) Presumptive E. coli [facility] Work Phone: Vital Signs Date Time Vital Sign Value Performing Clinician Faci litalina 04-18-2025 20:38-0400 Body temperature 98.1 [degF] Dr. Viridiana Faustin MD [facility] 04-18-2025 20:38-0400 Diastolic blood pressure 70 mm[Hg] Dr. Viridiana aFustin MD [facility] 04-18-2025 20:38-0400 Heart rate 100 /min Dr. Viridiana Faustin MD [facility] 04-18-2025 20:38-0400 Respiratory rate 19 /min Dr. Viridiana Faustin MD [facility] 04-18-2025 20:38-0400 SaO2% (BldA) [Mass fraction] 97 % Dr. Viridiana Faustin MD [facility] 04-18-2025 20:38-0400 Systolic blood pressure 112 mm[Hg] Dr. Viridiana Faustin MD [facility] 04-18-2025 20:36-0400 Body height 157.[address] Viridiana Faustin MD [facility] 04-18-2025 20:36-0400 Body mass index (BMI) [Ratio] 25.9 kg/m2 Dr. Viridiana Faustin MD [facility] 04-18-2025 20:36-0400 Body weight 64.[address] Viridiana Faustin MD [facility] 04-16-2025 00:39-0400 Body temperature 98 [degF] Dr. Viridiana Faustin MD [facility] 04-16-2025 00:39-0400 Diastolic blood pressure 84 mm[Hg] Dr. Viridiana Faustin MD [facility] 04-16-2025 00:39-0400 Heart rate 53 /min Dr. Viridiana Faustin MD [facility] 04-16-2025 00:39-0400 Respiratory rate 16 /min Dr. Viridiana Faustin MD [facility] 04-16-2025 00:39-0400 SaO2% (BldA) [Mass fraction] 100 % Dr. Viridiana Faustin MD [facility] 04-16-2025 00:39-0400 Systolic blood pressure 122 mm[Hg] Dr. Viridiana Faustin MD [facility] 04-15-2025 20:39-0400 Body height 157.[address] Viridiana Faustin MD [facility] 04-15-2025 20:39-0400 Body mass index (BMI) [Ratio] 23.8 kg/m2 Dr. Viridiana Faustin MD [facility] 04-15-2025 20:39-0400 Body weight 59.[address] Viridiana Faustin MD [facility] 03-03-2025 14:24-0400 Body height 157.[address] Viridiana Faustin MD [facility] 03-03-2025 14:24-0400 Body mass index (BMI) [Ratio] 24.1 kg/m2 Dr. Viridiana Faustin MD [facility] 03-03-2025 14:24-0400 Body weight 59.[address] Viridiana Faustin MD [facility] 03-03-2025 14:24-0400 Diastolic blood pressure 91 mm[Hg] Dr. Viridiana Faustin MD [facility] 03-03-2025 14:24-0400 Systolic blood pressure 136 mm[Hg] Dr. Viridiana Faustin MD [facility] 02-16-2025 13:50-0400 Body height 157.[address] Viridiana Faustin MD [facility] 02-16-2025 13:50-0400 Body mass index (BMI) [Ratio] 24.1 kg/m2 Dr. Viridiana Faustin MD [facility] 02-16-2025 13:50-0400 Body weight 59.[address] Viridiana Faustin MD [facility] 02-16-2025 13:50-0400 Diastolic blood pressure 78 mm[Hg] Dr. Viridiana Faustin MD [facility] 02-16-2025 13:50-0400 Systolic blood pressure 118 mm[Hg] Dr. Viridiana Fasutin MD [facility] 06-12-2022 14:56-0500 Body temperature 97.8 [degF] CHANNEL SUPERVISOR-C Alia Perry CHANNEL SUPERVISOR Work Phone: [facility] Work Phone: 06-12-2022 14:56-0500 Diastolic blood pressure 66 mm[Hg] CHANNEL SUPERVISOR-C Alia Perry CHANNEL SUPERVISOR Work Phone: [facility] Work Phone: 06-12-2022 14:56-0500 Heart rate 106 /min CHANNEL SUPERVISOR-C Alia Perry CHANNEL SUPERVISOR Work Phone: [facility] Work Phone: 06-12-2022 14:56-0500 Respiratory rate 14 /min CHANNEL SUPERVISOR-C Alia Perry CHANNEL SUPERVISOR Work Phone: [facility] Work Phone: 06-12-2022 14:56-0500 SaO2% (BldA) [Mass fraction] 98 % CHANNEL SUPERVISOR-C Alia Orlando CHANNEL SUPERVISOR Work Phone: [facility] Work Phone: 06-12-2022 14:56-0500 Systolic blood pressure 108 mm[Hg] CHANNEL SUPERVISOR-C Alia Orlando CHANNEL SUPERVISOR Work Phone: [facility] Work Phone: 05-15-2022 12:51-0400 Body height 157.48 cm CHANNEL SUPERVISOR-C Alia Cambridge CHANNEL SUPERVISOR Work Phone: [facility] Work Phone: 05-15-2022 12:51-0400 Body mass index (BMI) [Percentile] Per age and sex 70 % CHANNEL SUPERVISOR-C Alia Cambridge CHANNEL SUPERVISOR Work Phone: [facility] Work Phone: 05-15-2022 12:51-0400 Body mass index (BMI) [Ratio] 23.6 kg/m2 CHANNEL SUPERVISOR-C Alia Cambridge CHANNEL SUPERVISOR Work Phone: [facility] Work Phone: 05-15-2022 12:51-0400 Body weight 58.51 kg CHANNEL SUPERVISOR-C Alia Orlando CHANNEL SUPERVISOR Work Phone: [facility] Work Phone: 05-15-2022 12:51-0400 Diastolic blood pressure 75 mm[Hg] CHANNEL SUPERVISOR-C Alia Cambridge CHANNEL SUPERVISOR Work Phone: [facility] Work Phone: 05-15-2022 12:51-0400 Heart rate 76 /min CHANNEL SUPERVISOR-C Alia Orlando CHANNEL SUPERVISOR Work Phone: [facility] Work Phone: 05-15-2022 12:51-0400 Respiratory rate 16 /min CHANNEL SUPERVISOR-C Alia Orlando CHANNEL SUPERVISOR Work Phone: [facility] Work Phone: 05-15-2022 12:51-0400 SaO2% (BldA) [Mass fraction] 100 % CHANNEL SUPERVISOR-C Alia Orlando CHANNEL SUPERVISOR Work Phone: [facility] Work Phone: 05-15-2022 12:51-0400 Systolic blood pressure 127 mm[Hg] CHANNEL SUPERVISOR-C Alia Orlando CHANNEL SUPERVISOR Work Phone: [facility] Work Phone: 04-17-2022 13:03-0400 Body mass index (BMI) [Percentile] Per age and sex 79.4 % CHANNEL SUPERVISOR-C Alia Cambridge CHANNEL SUPERVISOR Work Phone: [facility] Work Phone: 04-17-2022 13:03-0400 Body mass index (BMI) [Ratio] 25 kg/m2 CHANNEL SUPERVISOR-C Alia Cambridge CHANNEL SUPERVISOR Work Phone: [facility] Work Phone: 04-17-2022 13:03-0400 Diastolic blood pressure 82 mm[Hg] CHANNEL SUPERVISOR-C Alia Cambridge CHANNEL SUPERVISOR Work Phone: [facility] Work Phone: 04-17-2022 13:03-0400 Systolic blood pressure 124 mm[Hg] CHANNEL SUPERVISOR-C Alia Cambridge CHANNEL SUPERVISOR Work Phone: [facility] Work Phone: 04-17-2022 13:01-0400 Body weight 62.14 kg CHANNEL SUPERVISOR-C Alia Cambridge CHANNEL SUPERVISOR Work Phone: [facility] Work Phone: 11-07-2021 14:55-0400 Body height 157.48 cm CHANNEL SUPERVISOR-C Alia Cambridge CHANNEL SUPERVISOR Work Phone: [facility] Work Phone: 11-07-2021 14:55-0400 Body mass index (BMI) [Ratio] 24.7 kg/m2 CHANNEL SUPERVISOR-C Alia Cambridge CHANNEL SUPERVISOR Work Phone: [facility] Work Phone: 11-07-2021 14:55-0400 Body weight 61.23 kg CHANNEL SUPERVISOR-C Alia Orlando CHANNEL SUPERVISOR Work Phone: [facility] Work Phone: 11-07-2021 14:55-0400 Diastolic blood pressure 80 mm[Hg] CHANNEL SUPERVISOR-C Alia Perry CHANNEL SUPERVISOR Work Phone: [facility] Work Phone: 11-07-2021 14:55-0400 Systolic blood pressure 122 mm[Hg] CHANNEL SUPERVISOR-C Alia Perry CHANNEL SUPERVISOR Work Phone: [facility] Work Phone: 04-08-2017 16:27-0400 BMI (Body Mass Index) 18.75 kg/m2 Rosa Ocampo MACHINE GUN MECHANIC [facility] Work Phone: 04-08-2017 16:27-0400 Body Temperature 99.1 [degF] Rosa Ocampo MACHINE GUN MECHANIC [facility] Work Phone: 04-08-2017 16:27-0400 BP Diastolic 64 mm[Hg] Rosa Ocampo MACHINE GUN MECHANIC [facility] Work Phone: 04-08-2017 16:27-0400 BP Systolic 112 mm[Hg] Rosa Contiar MACHINE GUN MECHANIC [facility] Work Phone: 04-08-2017 16:27-0400 Height 152.4 cm Rosa Ocampo MACHINE GUN MECHANIC [facility] Work Phone: 04-08-2017 16:27-0400 Pulse (Heart Rate) 102 /min Rosa Ocampo MACHINE GUN MECHANIC [facility] Work Phone: 04-08-2017 16:27-0400 Respiratory Rate 18 /min Rosa Ocampo MACHINE GUN MECHANIC [facility] Work Phone: 04-08-2017 16:27-0400 Weight 43.55 kg Rosa Ocampo LPN [facility] Work Phone: Encounters Encounter Date Encounter Type Care Provider Facility Start: 04-18-2025 End: 04-18-2025 Emergency department patient visit Dr. Viridiana Faustin MD -Emergency Department Work Phone: Start: 04-18-2025 End: 04-18-2025 ambulatory Pola Graff Facility:[facility] Start: 04-15-2025 End: 04-16-2025 Emergency department patient visit Dr. Viridiana Faustin MD -Emergency Department Work Phone: Start: 03-04-2025 End: 03-04-[address] Viridiana Faustin MD -Laboratory Start: 03-04-2025 End: 03-04-2025 Patient encounter procedure Tayla DUNNC -Laboratory Work Phone: Start: 03-03-2025 End: 03-03-2025 Patient encounter procedure Tayla Multani NP-C -[facility] Work Phone: Start: 03-03-2025 End: 03-04-[address] Viridiana Faustin MD -[facility] Start: 02-21-2025 End: 02-21-[address] Viridiana Faustin MD -Ultrasound [facility] Start: 02-21-2025 End: 02-21-2025 Patient encounter procedure Tayla Multani NP-Ashlee -Ultrasound [facility] Work Phone: Start: 02-21-2025 End: 02-21-2025 ambulatory Tayla Multani Facility:[facility] Start: 02-16-2025 End: 02-16-[address] Viridiana Faustin MD -Laboratory Start: 02-16-2025 End: 02-16-2025 Patient encounter procedure Tayla DUNNC -Laboratory Work Phone: Start: 02-16-2025 End: 02-16-[address] Viridiana Faustin MD -[facility] Start: 02-16-2025 End: 02-16-2025 Patient encounter procedure Tayla Multani NP-C -[facility] Work Phone: Start: 02-15-2025 End: 02-16-2025 ambulatory VIRIDIANA FAUSTIN MD Facility: Start: 02-15-2025 End: 02-15-2025 Patient encounter procedure VIRIDIANA FAUSTIN MD [facility] Start: 01-31-2025 End: 01-31-[address] Viridiana Faustin MD -[facility] Start: 01-31-2025 End: 01-31-[address] Viridiana Faustin MD -[facility] Work Phone: Start: 01-31-2025 End: 01-31-2025 ambulatory Viridiana Faustin Facility:[facility] Start: 01-11-2025 End: 01-11-2025 ambulatory VIRIDIANA FAUSTIN MD Facility:[facility] Start: 01-11-2025 End: 01-11-2025 Patient encounter procedure VIRIDIANA FAUSTIN MD [facility] Start: 08-03-2024 End: 08-03-2024 ambulatory KITTY SIDDIQUI DO Facility:[facility] Start: 08-03-2024 End: 08-03-2024 Patient encounter procedure KITTY SIDDIQUI DO [facility] Start: 08-03-2024 End: 08-03-2024 ambulatory Eric Byers Facility:[facility] Start: 06-24-2024 End: 06-24-2024 ambulatory Panda BARGER Facility:[facility] Start: 06-24-2024 End: 06-24-2024 ambulatory Panda BARGER Facility:[facility] Start: 07-23-2022 Non-patient / Non-visit CHANNEL SUPERVISOR-C Ashlee Perry CHANNEL SUPERVISOR Work Phone: [facility] Start: 07-23-2022 End: 07-23-2022 ambulatory CHANNEL SUPERVISOR-C Alia Peryr CHANNEL SUPERVISOR Work Phone: [facility] Work Phone: Start: 07-23-2022 End: 07-23-2022 Patient encounter procedure CHANNEL SUPERVISOR-C Alia Perry CHANNEL SUPERVISOR Work Phone: [facility] Start: 06-12-2022 End: 06-12-2022 ambulatory CHANNEL SUPERVISOR-C Alia Perry CHANNEL SUPERVISOR Work Phone: [facility] Work Phone: Start: 06-12-2022 End: 06-12-2022 Patient encounter procedure CHANNEL SUPERVISOR-C Alia Cambridge CHANNEL SUPERVISOR Work Phone: [facility] Start: 06-06-2022 End: 06-06-2022 ambulatory CHANNEL SUPERVISOR-C Alia Cambridge CHANNEL SUPERVISOR Work Phone: [facility] Work Phone: Start: 06-06-2022 End: 06-06-2022 Patient encounter procedure CHANNEL SUPERVISOR-C Alia Cambridge CHANNEL SUPERVISOR Work Phone: [facility]-Laboratory Start: 05-15-2022 End: 05-15-2022 Patient encounter procedure CHANNEL SUPERVISOR-C Alia Cambridge CHANNEL SUPERVISOR Work Phone: [facility] Start: 04-17-2022 End: 04-17-2022 Patient encounter procedure CHANNEL SUPERVISOR-C Alia Orlando CHANNEL SUPERVISOR Work Phone: [facility]-Laboratory, Specimen Start: 04-17-2022 End: 04-17-2022 Patient encounter procedure CHANNEL SUPERVISOR-C Alia Orlando CHANNEL SUPERVISOR Work Phone: [facility] Start: 12-10-2021 End: 12-10-2021 Patient encounter procedure CHANNEL SUPERVISOR-C Alia Cambridge CHANNEL SUPERVISOR [facility] Start: 11-07-2021 End: 11-07-2021 Patient encounter procedure CHANNEL SUPERVISOR-C Alia Orlando CHANNEL SUPERVISOR [facility] Start: 11-07-2021 End: 11-07-2021 Patient encounter procedure CHANNEL SUPERVISOR-C Alia Perry CHANNEL SUPERVISOR Work Phone: [facility] Procedures Date Procedure Procedure Detail Performing Clinician [...] contrast Dr. Viridiana Faustin MD Urine culture CHANNEL SUPERVISOR-C Alia Perry CHANNEL SUPERVISOR Work Phone: Plan of Treatment Date Care Activity Detail Author Start: 04-16-2025 [facility] Start: 04-15-2025 [facility] Start: 04-15-2025 [facility] Start: 02-21-2025 Pelvic echography Pelvic w/ Transvaginal [facility] Start: 02-21-2025 US Pelvis [facility] Start: 06-13-2022 [facility] Work Phone: Start: 04-08-2017 End: 04-08-2017 Appointment Appointment [facility] Work Phone: Bacteria identified in Urine by Culture Urine Culture [facility] Work Phone: Chlamydia deoxyribon ucleic acid detection [facility] Patient Education [facility] Work Phone: Source specific culture [facility] Work Phone: [facility] Immunizations Immunization Date Immunization Notes Care Provider Fa cility 04-18-2025 rabies vaccine, for intramuscular injection Dr. Viridiana Faustin MD [facility] 04-15-[address] Viridiana sarah MD [facility] 04-15-2025 rabies vaccine, for intramuscular injection Dr. Viridiana Faustin MD [facility] 04-15-2025 tetanus toxoid, redu berna diphtheria toxoid, and acellular pertussis vaccine, adsorbed Dr. Viridiana Faustin MD [facility] 12-10-2021 meningococcal B vacc ine, recombinant, OMV, adjuvanted VIRIDIANA FAUSTIN MD [facility] 10-25-2020 hepatitis A vaccine, pediatric dosage, unspecified formulation VIRIDIANA FAUSTIN MD [facility] 10-25-2020 Human Papillomavirus Chachaval VIRIDIANA FAUSTIN MD [facility] 10-25-2020 influenza virus vacc ine, unspecified formulation VIRIDIANA FAUSTIN MD [facility] 10-25-2020 meningococcal B vacc ine, recombinant, OMV, adjuvanted VIRIDIANA FAUSTIN MD [facility] 10-14-2019 hepatitis A vaccine, pediatric dosage, unspecified formulation VIRIDIANA FAUSTIN MD [facility] 10-14-2019 Human Papillomavirus Jose Francisco FAUSTIN MD [facility] 03-25-2019 Human Papillomavirus Chachaval VIRIDIANA FAUSTIN MD [facility] 03-25-2019 meningococcal polysaccharide (groups A, C, Y and W-135) diphtheria toxoid conjugate vaccine (MCV4P) VIRIDIANA FAUSTIN MD [facility] 03-25-2019 tetanus toxoid, redu berna diphtheria toxoid, and acellular pertussis vaccine, adsorbed VIRIDIANA FAUSTIN MD [facility] 10-05-2015 influenza virus vacc ine, unspecified formulation VIRIDIANA FAUSTIN MD [facility] 07-06-2014 influenza virus vacc ine, unspecified formulation VIRIDIANA FAUSTIN MD [facility] 07-06-2014 meningococcal polysaccharide (groups A, C, Y and W-135) diphtheria toxoid conjugate vaccine (MCV4P) VIRIDIANA FAUSTIN MD [facility] 07-06-2014 tetanus toxoid, redu brena diphtheria toxoid, and acellular pertussis vaccine, adsorbed VIRIDIANA FAUSTIN MD [facility] 02-25-2013 varicella virus vaccine BLANKA FAUSTIN MD [facility] 04-27-2008 diphtheria, tetanus toxoids and acellular pertussis vaccine, unspecified formulation VIRIDIANA FAUSTIN MD [facility] 04-27-2008 measles/mumps/rubell a virus vaccine VIRIDIANA FAUSTIN MD [facility] 04-27-2008 poliovirus vaccine, inactivated VIRIDIANA FAUSTIN MD [facility] 10-04-2005 influenza virus vacc ine, unspecified formulation VIRIDIANA FAUSTIN MD [facility] 06-06-2004 influenza virus vacc ine, unspecified formulation VIRIDIANA FAUSTIN MD [facility] 03-02-2004 diphtheria, tetanus toxoids and acellular pertussis vaccine, unspecified formulation VIRIDIANA FAUSTIN MD [facility] 03-02-2004 haemophilus influenz ae type b vaccine, PRP-T conjugate VIRIDIANA FAUSTIN MD [facility] 12-10-2003 measles/mumps/rubell a virus vaccine VIRIDIANA FAUSTIN MD [facility] 12-10-2003 varicella virus vaccine BLANKA FAUSTIN MD [facility] 09-17-2003 hepatitis B pediatri c vaccine VIRIDIANA FAUSTIN MD [facility] 05-26-2003 diphtheria, tetanus toxoids and acellular pertussis vaccine, unspecified formulation VIRIDIANA FAUSTIN MD [facility] 05-26-2003 haemophilus influenz ae type b vaccine, PRP-T conjugate VIRIDIANA FAUSTIN MD [facility] 05-26-2003 poliovirus vaccine, inactivated VIRIDIANA FAUSTIN MD [facility] 04-02-2003 diphtheria, tetanus toxoids and acellular pertussis vaccine, unspecified formulation VIRIDIANA FAUSTIN MD [facility] 04-02-2003 haemophilus influenz ae type b vaccine, PRP-T conjugate VIRIDIANA FAUSTIN MD [facility] 04-02-2003 poliovirus vaccine, inactivated VIRIDIANA FAUSTIN MD [facility] 02-05-2003 diphtheria, tetanus toxoids and acellular pertussis vaccine, unspecified formulation VIRIDIANA FAUSTIN MD [facility] 02-05-2003 haemophilus influenz ae type b vaccine, PRP-T conjugate VIRIDIANA FAUSTIN MD [facility] 02-05-2003 poliovirus vaccine, inactivated VIRIDIANA FAUSTIN MD [facility] 01-03-2003 hepatitis B pediatri c vaccine VIRIDIANA FAUSTIN MD [facility] 2002 hepatitis B pediatri c vaccine VIRIDIANA FAUSTIN MD [facility] Payers Date Payer Category Payer Private Health Insurance [id number] 2025 Private Health Insurance [id number] 2024 Unknown [id number] 2024 Self-pay [id number] 2024 Unknown [id number] 2002 Unknown [id number] 2.16. [id number] 2002 Unknown [id number] 2.16.8 [id number] 2002 Unknown [id number] 2.16. [id number] Private Health Insurance [id number] Unknown [id number] 2.16.8 [id number] Unknown [id number] 2.16.8 [id number] Unknown [id number] 2.16.8 [id number] Unknown [id number] 2.16.8 [id number] Unknown [id number] 2.16.8 [id number] Unknown [id number] 2.16.8 [id number] Unknown [id number] 2.16.8 [id number] Unknown [id number] 2.16.8 [id number] Unknown [id number] 2.16.8 [id number] Unknown [id number] 2.16.8 [id number] Unknown [id number] 2.16.8 [id number] Social History Date Type Detail Facility Start: 11-07-2021 End: 06-12-2022 Tobacco smoking status NHIS Unknown if ever smoked [facility] Work Phone: Start: 2000 Sex Assigned At Female A [facility] Start: 08-02-2024 End: 04-15-2025 Tobacco smoking status Ex-smoker (finding) [facility] Sexual Orientation [facility] Sex [facility] (finding[facility] Start: 09-27-2023 Tobacco smoking stat us NHIS Never smoked tobacco (finding) [facility] Mental Status Date Assessment Result Facility 04-16-2025 Cognitive function Level Of Cons ciousness Awake;Alert;Appropriate;Follow s Commands [facility] Work Phone: Clinical Notes 01-11-2025 to 04-16-2025 Note Date & Type Note Facility 04-16-2025 Discharge summary [facility] 04-15-2025 Discharge summary Note Date/Time April 16, 2025 12:37am [facility] Medical Records Department [address] [place] [address] Emergency Department Summary 04/15/25 MR#: [id number] Acct: [id number] Name: PRISCILLA WALTERS Rep #:[id number] 2 : 2000 24 From: Pola Graff [...] occupational status: unemployed and student 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 Call [facility] ([phone]) or report to the closest Emergency Room. Call 911 if necessary. 04/15/252306 <Electronically signed by Pola Graff MD> Cosigner Signature (if applicable): CC: Dr. Kitty Siddiqui DO ~ Signed [facility] Work Phone: 1(802) 788-280007-24-2025 Radiology Diagnostic study note [facility] Imaging Services [address] [place] [address] Pelvic w/ Transvaginal MR#: [id number] Acct: [id number] Name: PRISCILLA WALTERS Rep #: [id number] 9 : 2000 F 24 From: Alexa Wren MD PCP: Dr. Kitty Siddiqui DO Status: REG CLI Study:Pelvic w/ Transvaginal Date of Exam: 02/21/25 Exam# [id number] Ordering Dr: Tayla Multani PROCEDURE: PELVIC W/ [...] free fluid is likely physiologic. Reading Location: [id number] CC: ERIK Multani; Dr. Kitty Siddiqui DO ~ Career Orientation Teacher: Signed [facility]07-16-2025 Evaluation note* Diagnosis Onset Date Resolution Status Admit Date Abnormal uterine bleeding acute February 16, 2025 1:40pm Elevated vitamin B12 level acute February 16, 2025 1:40pm Pelvic pain acute February 16 1:40pm Possible exposure to STI acute February 16, 2025 1:40pm Vaginal discharge acute February 162024 1:40pm [facility] Work Phone: 1(448) 302-536807-16-2025 Evaluation note* Diagnosis Onset Date Resolution Status Admit Date Abnormal uterine bleeding acute February 16, 2025 1:40pm Elevated vitamin B12 level acute February 16, 2025 1:40pm Pelvic pain acute February 16 1:40pm Possible exposure to STI acute February 16, 2025 1:40pm Vaginal discharge acute February 162024 1:40pm PCOS (polycystic ovarian syndrome) acute March 03, 2025 2:05pm [facility] Work Phone: 1(436) 964-262706-10-2025 Evaluation + Plan note Diagnostic Tests Pending * Lyme Disease Serology w/Reflex 01/11/25 * Methylmalonic Acid, Serum 01/11/25 [facility] Evaluation + Plan note Future Appointments Appointment Date:10/28/2024 08:00:00 AM Scheduled Provider:KITYT SIDDIQUI DO Location:[facility] Appointment Type:PC OV [facility] Evaluation note* Diagnosis Onset Date Resolution Status Menorrhagia with irregular cycle acute [facility] Work Phone: Evaluation note* Diagnosis Onset Date Resolution Status Menorrhagia with irregular cycle acute Possible exposure to STD non eactive Chest pain acute Elevated lipoprotein A level acute Urinary tract infection with hematuria acute [facility] Work Phone: Evaluation noteNo assessment information available [facility] Work Phone: Hospital course Narrative No data available for this section [facility] Hospital Discharge instructions No data available for this section [facility] Progress note No data available for this section [facility] Reason for referral (narrative)No reason for referral [facility] Work Phone: Chief Complaint and Reason for Visit 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 No April 15, 2025 8:39pm Additional Source [...] section and content) DATE CREATED AUTHOR 12/15/2021 [facility] DATE CREATED AUTHOR AUTHOR'S ORGANIZ ATION 01/18/2025 [facility] DATE CREATED AUTHOR AUTHOR'S ORGANIZ ATION 03/19/2025 [facility] DATE CREATED AUTHOR AUTHOR'S ORGANIZ ATION 04/19/2025 [facility] Patient Care team informatio n (unrecognized section [...] 2025 End: February 16, 2025 Tayla Multani CHANNEL SUPERVISOR-C Attending Provider Active Start: February 16, 2025 End: February 16, 2025 Tayla Multani CHANNEL SUPERVISOR-C Referring Provider Active Start: February 16, 2025 End: February 16, 2025 Team Status: Active Member Role/Relationship Status Dates Dr. Kitty Siddiqui DO Primary Care Provider Active Start: February 21, 2025 Tayla Multani CHANNEL SUPERVISOR-C Attending Provider Active Start: February 21, 2025 Tayla Multani NP-C Referring Provider Active Start: February 21, 2025 Team Status: Inactive Member Role/Relationship Status Dates Dr. Kitty Siddiqui DO Primary Care Provider Active Start: February 21, 2025 End: February 21, 2025 Tayla Multani CHANNEL SUPERVISOR-C Attending Provider Active Start: February 21, 2025 End: February 21, 2025 Tayla Multani CHANNEL SUPERVISOR-C Referring Provider Active Start: February 21, 2025 [...] BE BASED ON THE PRIMARY CLINICAL RECORDS. [employer] [facility] provides no warranty or guarantee of the accuracy or completeness of information in this document.
== END 2025-04-22 21:03 | disposition home or self-care (01) ==
LOC: ED 21:07
PROVIDERS: PCP Student in an Organized Health Care Education/Training Program; Visit Provider Emergency Medicine
DX: Z23 Encounter for immunization (principal)
CPT/HCPCS: 90675; 96372